=== PATIENT | female | born 1970 | race Caucasian/White ===

== ENCOUNTER 2020-11-12 12:44 | Outpatient (CLI) | payer BC, SELFPAY ==
--- NOTE | ~2020-11-12 | US_ITS ---
EXAMINATION: US venous doppler LE EXAM DATE: 11/12/2020 13:22 INDICATION: Bilateral leg pain. TECHNIQUE: Multiple grayscale, color flow and Doppler images of the lower extremity deep venous syste ms bilaterally were obtained and reviewed. There is no prior study for comparison. FINDINGS: Right side: The right common femoral, femoral and profunda veins demonstrate normal color flow, respi ratory variation, augmentation and compressibility. Compressibility, color flow confirmed within the right popliteal, posterior tibial, peroneal, and greater saphenous veins. Left side: The left common femoral, femoral and profunda veins demonstrate normal color flow, respira tory variation, augmentation and compressibility. Compressibility, color flow confirmed within the l eft popliteal, posterior tibial, peroneal, and greater saphenous veins. IMPRESSION: No lower extremity deep venous thrombosis bilaterally. Reviewed, dictated and finalized at location A.
== END 2020-11-12 12:45 | disposition home or self-care (01) ==
LOC: ANHIMG 12:48
PROVIDERS: PCP Internal Medicine; Visit Provider Physician Assistant
DX: M79.604 Pain in right leg (principal); M79.605 Pain in left leg
CPT/HCPCS: 93970

== ENCOUNTER → 2020-11-22 14:13 | Outpatient (CLI) | payer BC, SELFPAY ==
--- NOTE | ~2020-11-22 | XR_ITS ---
XR hip BI wo pelvis DATE: 11/22/2020 14:44 INDICATION: Bilateral hip pain TECHNIQUE: AP and lateral views of each hip COMPARISON: 06/23/2013 left and right hip FINDINGS: No fracture or dislocation, avascular necrosis or bone destruction of either hip is evident . There is mild left hip osteoarthritis. The pubic symphysis and sacroiliac joints appear intact. IMPRESSION: Mild left hip osteoarthritis Reviewed, dictated and finalized at location A.
--- NOTE | ~2020-11-22 | XR_ITS ---
XR lumbar spine 2-3V DATE: 11/22/2020 14:44 INDICATION: Back pain TECHNIQUE: AP, lateral, coned lateral lumbosacral views COMPARISON: None FINDINGS: Diffuse osteopenia. There is minimal levoscoliosis of the lumbar spine. No fracture or bone destruction or spondylolisthesis. The lumbar pedicles are intact. Mild degenerative disc disease at L3-4 primarily. The sacroiliac joints are intact. IMPRESSION: Osteopenia Minimal levoscoliosis Mild degenerative disc disease primarily at L3-4 Reviewed, dictated and finalized at location A.
== END ==
PROVIDERS: Visit Provider Internal Medicine
DX: M16.12 Unilateral primary osteoarthritis, left hip (principal); M85.88 Other specified disorders of bone density and structure, other site; M51.36 Other intervertebral disc degeneration, lumbar region
CPT/HCPCS: 72100; 73521

== ENCOUNTER 2020-12-03 10:02 | Outpatient (CLI) | payer BC, SELFPAY ==
--- NOTE | ~2020-12-03 | US_ITS ---
EXAMINATION: US abdomen complete EXAM DATE: 12/03/2020 10:58 INDICATION: R10.11 - Right upper quadrant pain . TECHNIQUE: Multiple grayscale and Doppler images of the complete abdomen were obtained (by a technolo gist who performed the scan) and subsequently reviewed. Comparison is made to prior examination from 11/14/2012. FINDINGS: The abdominal aorta is normal in caliber. Visualized portion IVC is patent. The pancreatic head a nd body are normal in appearance. The pancreatic tail is not visualized. The liver has normal echogenicity and contour. There are no focal liver lesions identified. There is no evidence of intrahepatic biliary duct dilation. Portal venous flow was seen in the hepatopedal , normal direction and has normal Doppler waveform. Common bile duct measures 5 mm, which is normal. The gallbladder wall is normal in thickness, with ex pected amount of distention. No sonographic evidence of pericholecystic fluid. There is no cholelit hiases. Technologist performing exam reports patient did not demonstrate sonographic Osorio's sign. Please note that this sign is less reliable in patients who have received pain medication. Right kidney: There is normal contour and echogenicity. It measures 11.4 x 4.5 x 5.1 centimeters. There are no focal renal lesions identified. There is no hydronephrosis. Left kidney: There is normal contour and echogenicity. It measures 11.5 x 5.1 x 6.3 centimeters. T here are no focal renal lesions identified. There is no hydronephrosis. The spleen measures 9.2 centimeters and is morphologically normal. IMPRESSION: 1. Unremarkable complete abdominal ultrasound exam. Reviewed, dictated and finalized at location A.
== END 2020-12-03 10:03 | disposition home or self-care (01) ==
PROVIDERS: PCP Internal Medicine; Visit Provider Internal Medicine
DX: R10.11 Right upper quadrant pain (principal)
CPT/HCPCS: 76700

== ENCOUNTER 2021-03-29 01:02 | Day surgery (SDC) | payer BC, SELFPAY ==
[2021-03-23 16:06] VITALS: BMI 37.2
[2021-03-29 10:44] VITALS: BP 149/85; PULSE 62; RESP 17; TEMP 36.4; O2SAT 100; BMI 36.6
[2021-03-29] MEDS: LACTATED RINGERS 1,000 ML 150 ML IV CONT (10:46)
--- NOTE | 2021-03-29 11:32 | WPDANESEPPF ---
Anes - Initial Pre Proc Eval Procedure: Operation Date: 03/29/21 12:00 Proposed Procedures p Screening Colonoscopy - Nahid Caro MD Date/Time: 03/29/21 11:32 Surgeon: Nahid Caro MD Pre Op Diagnosis: neoplasm screening Patient Data Age: 50 Gender: F Height: 1.52 m Weight: 85.2 kg Last Vital Signs Temp 97.6 F 03/29/21 10:44 Pulse 62 03/29/21 10:44 Resp 17 03/29/21 10:44 BP 149/85 H 03/29/21 10:44 Pulse Ox 100 03/29/21 10:44 Allergies Allergy/AdvReac Type Severity Reaction Status Date / Time Sulfa (Sulfonamide Allergy Mild Unknown Verified 03/29/21 10:43 Antibiotics) Home Medications Medication Instructions Recorded Confirmed Type ergocalciferol (vitamin D2) 1,250 mcg PO WEEKLY 03/23/21 03/29/21 History Patient hx anesthesia problems: none Family hx anesthesia problems: none PMFSH Past Medical History Medical History (Updated 03/29/21 @ 11:29 by Azeem Aguirre MD) Obesity (BMI 30-39.9) Family History Family History Mother Family history of liver disease, Onset Age: 46 Patient's mother is Father Family history of diabetes mellitus in first degree relative, Onset Age: 64 Patient's father is Social History Social History Smoking packs per day: 1 Smoking cigarettes per day: 20.0 Years smoked: 19 Smoking pack-years: 19.00 Smoking status: Former smoker Tobacco type: cigarettes Second hand tobacco smoke exposure: No Smoking end date: 07/16/10 Alcohol intake: current Drinks per week: 6 Substance use: never Living arrangements: with family Spiritual care concerns: No Anes - Eval Final PreProcedure Day of Procedure 03/29/21 11:32 Patient weight: obese Heart: regular rate and rhythm Lungs: clear to auscultation Airway: Mallampati scale class II Neurological: alert and oriented Last oral intake: >/= 8 hours ASA classification: II Emergent: no Anesthetic plan: proceed Anesthesia type and monitoring: general GIVS and standard monitoring Informed Consent: The patient's anesthetic plan and its attendant risks and benefits were discussed with the patient/family/POA. Questions were solicited and answers provided to the satisfaction of the patient/family/POA.
--- NOTE | 2021-03-29 12:38 | PM.HPGS ---
History of Present Illness History of Present Illness Consent: Risks, benefits, and alternatives have been discussed and questions answered. Patient agrees to proceed with procedure. Chief complaint: neoplasm screening Narrative: Janet Chiu is a 50 year old female here for screening colonoscopy, last one 7 years go. Review of Systems Constitutional: Constitutional: Denies headache(s) and Denies weakness Eyes: Eyes: Denies blurry vision ENT: Reports Normal hearing present, Denies headache(s) and Denies neck pain Cardiovascular: Cardiovascular: Denies chest pain and Denies dyspnea Respiratory: Respiratory: Denies dyspnea Gastrointestinal: Gastrointestinal: Reports no additional gastrointestinal complaints Genitourinary: Genitourinary: Denies dysuria Musculoskeletal: Musculoskeletal: Denies neck pain Integumentary/Breasts: Skin/Breast: Denies dry skin Neurologic: Reports Normal hearing present, Denies headache(s) and Denies weakness Psychiatric: Psychiatric: Denies anxiety Endocrine: Endocrine: Denies change in body appearance Hematologic/Lymphatic: Hematologic/Lymphatic: Denies easy bleeding Allergic/Immunologic: Allergic/Immunologic: Denies urticaria PMFSH Past Medical History Medical History (Updated 03/29/21 @ 12:39 by Nahid Caro MD) Colon cancer screening Obesity (BMI 30-39.9) Family History Family History Mother Family history of liver disease, Onset Age: 46 Patient's mother is Father Family history of diabetes mellitus in first degree relative, Onset Age: 64 Patient's father is Social History Social History Smoking packs per day: 1 Smoking cigarettes per day: 20.0 Years smoked: 19 Smoking pack-years: 19.00 Smoking status: Former smoker Tobacco type: cigarettes Second hand tobacco smoke exposure: No Smoking end date: 07/16/10 Alcohol intake: current Drinks per week: 6 Substance use: never Living arrangements: with family Spiritual care concerns: No Meds Home Medications and Allergies Home Medications Medication Instructions Recorded Confirmed Type ergocalciferol (vitamin D2) 1,250 mcg PO WEEKLY 03/23/21 03/29/21 History Allergies Allergy/AdvReac Type Severity Reaction Status Date / Time Sulfa (Sulfonamide Allergy Mild Unknown Verified 03/29/21 10:43 Antibiotics) Vital Signs Vital Signs - 24 hr 03/29/21 10:44 Temperature 97.6 F Pulse Rate 62 Respiratory Rate 17 Blood Pressure 149/85 H Pulse Oximetry 100 Exam Const: General: comfortable and no acute distress HENMT: General nose exam: Normal nares present Eyes: General: appearance normal, both eyes and all related structures Neck: Neck: no JVD Resp: Auscultation: clear to auscultation bilaterally Cardio: Rate: regular rate Rhythm: regular rhythm GI: Inspection: non-distended GI Palp: Yes Soft to palpation Skin: General skin exam: normal color Neuro: General: gait normal Speech: normal speech Extrem: General: normal to inspection Psych: Mental Status: mental status grossly normal Assessment and Plan Assessment and plan (1) Colon cancer screening: Code(s): Z12.11 - Encounter for screening for malignant neoplasm of colon Status: Acute Assessment and Plan: colonoscopy
[2021-03-29 12:58] VITALS: BP 124/71; PULSE 60; RESP 25; O2SAT 100
[2021-03-29 13:08] VITALS: BP 138/86; PULSE 63; RESP 15; O2SAT 100
[2021-03-29 13:18] VITALS: BP 157/88; PULSE 52; RESP 17; O2SAT 100
== END 2021-03-29 13:26 | disposition home or self-care (01) ==
PROVIDERS: PCP Internal Medicine; Visit Provider Internal Medicine Gastroenterology
PROC: 0DJD8ZZ Inspection of Lower Intestinal Tract, Via Natural or Artificial Opening Endoscopic (ICD-10-PCS; CPT 45378; principal; 2021-03-29 12:00)
DX: Z12.11 Encounter for screening for malignant neoplasm of colon (principal); K64.8 Other hemorrhoids; K63.5 Polyp of colon; Z87.891 Personal history of nicotine dependence; E66.9 Obesity, unspecified; Z68.36 Body mass index [BMI] 36.0-36.9, adult
CPT/HCPCS: 45385; 88305; J2704; J7120

== ENCOUNTER 2022-04-10 16:30 | Outpatient (CLI) | payer BC, SELFPAY ==
--- NOTE | ~2022-04-10 | MR_ITS ---
EXAMINATION: MR cervical spine wo con DATE: 04/10/2022 17:13 INDICATION: Neck pain. Cervical radiculopathy. TECHNIQUE: Magnetic resonance imaging (MRI) of the cervical spine was performed without intravenous c ontrast. Sequences included sagittal T2-weighted FSE, sagittal T2-weighted FS FSE, sagittal T1-weight ed FSE, axial MERGE, and axial T2-weighted FSE. COMPARISON: None FINDINGS: Bone alignment is normal. Vertebral body heights are normal. There is moderately decreased disc height at C5-C6. The spinal cord signal intensity is normal. The following disc levels are speci fically discussed: C2-C3: The disc does not extend beyond the endplate margin. There is no uncovertebral joint osteoarth ritis. There is mild left facet joint osteoarthritis. There is no neural foraminal stenosis. There is no central canal stenosis. C3-C4: There is a left central protrusion. There is no uncovertebral joint osteoarthritis. There is s evere right and mild left facet joint osteoarthritis. There is mild right neural foraminal stenosis. There is mild central canal stenosis. C4-C5: There is a left central extrusion. There is no uncovertebral joint osteoarthritis. There is mo derate left facet joint osteoarthritis. There is mild left neural foraminal stenosis. There is mild c entral canal stenosis with ventral indentation of the spinal cord. C5-C6: The disc is bulging. There is severe bilateral uncovertebral joint osteoarthritis. There is mi ld bilateral facet joint osteoarthritis. There is moderate bilateral neural foraminal stenosis. There is mild central canal stenosis with ventral indentation of spinal cord. C6-C7: The disc is bulging. There is no uncovertebral joint osteoarthritis. There is no facet joint o steoarthritis. There is no neural foraminal stenosis. There is no central canal stenosis. C7-T1: The disc does not extend beyond the endplate margin. There is no uncovertebral joint osteoarth ritis. There is moderate and mild left facet joint osteoarthritis. There is mild right neural foramin al stenosis. There is no central canal stenosis. IMPRESSION: 1. Moderate cervical spondylosis. Reviewed, dictated and finalized at location A.
== END 2022-04-10 16:31 ==
PROVIDERS: PCP Internal Medicine; Visit Provider Orthopaedic Surgery
DX: M47.22 Other spondylosis with radiculopathy, cervical region (principal)
CPT/HCPCS: 72141

== ENCOUNTER 2022-04-13 10:00 | Outpatient (CLI) | payer BC, SELFPAY ==
--- NOTE | 2020-04-13 11:00 | NEURO_ITS ---
IMPRESSION: History of right wrist injury. Complaints of pain in posterior aspect of forearm and intermittent numbness in all fingers of right hand. # Mild right carpal tunnel syndrome. 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 # EMG examination was normal. # Clinical correlation recommended. Nerve Conduction Studies Anti Sensory Summary Table Stim Site NR Peak (ms) P-T Amp (?V) Site1 Site2 Delta-P (ms) Dist (cm) Silviano (m/s) Right Median Anti Sensory (2-3nd Digit) Wrist 3.6 74.7 Wrist 2-3nd Digit 3.6 14.0 39 Wrist 4.1 80.2 Wrist 2-3nd Digit 3.6 14.0 39 Right Radial Anti Sensory (Base 1st Digit) Wrist 3.7 20.0 Wrist Base 1st Digit 3.7 0.0 Right Ulnar Anti Sensory (5th Digit) Wrist 3.3 78.3 Wrist 5th Digit 3.3 14.0 42 Motor Summary Table Stim Site NR Onset (ms) O-P Amp (mV) Site1 Site2 Delta-0 (ms) Dist (cm) Silviano (m/s) Right Median Motor (Abd Poll Brev) Wrist 3.8 8.0 Elbow Wrist 2.8 17.0 61 Elbow 6.6 7.0 Right Ulnar Motor (Abd Dig Minimi) Wrist 2.7 4.5 A Elbow Wrist 4.5 25.0 56 A Elbow 7.2 2.9 B Elbow Wrist 3.2 17.0 53 B Elbow 5.9 2.9 F Wave Studies NR F-Lat (ms) L-R F-Lat (ms) Right Median (Mrkrs) (Abd Poll Brev) 25.16 Right Ulnar (Mrkrs) (Abd Dig Min) 26.61 EMG Side Muscle Nerve Root Ins Act Fibs Amp Dur Recrt Comment Right 1stDorInt Ulnar C8-T1 Nml Nml Nml Nml Nml Right Ext Indicis Radial (Post Int) C7-8 Nml Nml Nml Nml Nml Right Ext Digitorum Radial (Post Int) C7-8 Nml Nml Nml Nml Nml Right BrachioRad Radial C5-6 Nml Nml Nml Nml Nml Right PronatorTeres Median C6-7 Nml Nml Nml Nml Nml Right Abd Poll Brev Median C8-T1 Nml Nml Nml Nml Nml MTDD
== END 2022-04-13 10:01 | disposition home or self-care (01) ==
PROVIDERS: PCP Internal Medicine; Visit Provider Internal Medicine
DX: G56.01 Carpal tunnel syndrome, right upper limb (principal); G56.21 Lesion of ulnar nerve, right upper limb
CPT/HCPCS: 95886; 95909

== ENCOUNTER 2024-02-12 14:24 | Outpatient (CLI) | payer BC, SELFPAY ==
--- NOTE | ~2024-02-12 | MR_ITS ---
MRI left knee without contrast Ordering provider: Baldomero Woodward MD History: . M25.562 - Pain in left knee . Comparison: None. FINDINGS: QUADRICEPS, PATELLAR TENDONS AND CRUCIATE LIGAMENTS: Normal in signal and size. No tear. MENISCI: Meniscus tear in the posterior horn of the medial meniscus extending to the undersurface of . COLLATERAL LIGAMENTS: Normal. PATELLA: Minimal lateral subluxation of the patella.. Normal medial patellofemoral ligament are intac t. Tear in the medial and lateral retinacula is noted. JOINT SPACE/ARTICULAR CARTILAGE: The articular cartilage of the knee is normal including the unclaimed property officer ior femoral condyles. Minimal joint effusion with fluid in the suprapatellar bursa. BONES: Bright signal in the distal metaphysis of the femur which may be moderate change. Otherwise, N ormal marrow signal. SUPERFICIAL AND DEEP SOFT TISSUE: popliteal cyst is seen with fluid seen medially which raises the p ossibility of a fracture... No bursitis. No muscle strain. Otherwise, normal. IMPRESSION: Tear in the posterior horn of the medial meniscus. Joint effusion with fluid in the suprapatellar bursa. Highly suggestive tear in the medial and lateral retinacula. Macario's cyst with fluid in the medial soft tissues which raises the possibility of a rupture. Reviewed, dictated and finalized at location A.
== END 2024-02-12 14:25 ==
LOC: GOSHIMG 14:25
PROVIDERS: PCP Internal Medicine; Visit Provider Orthopaedic Surgery
DX: M71.22 Synovial cyst of popliteal space [Baker], left knee (principal); S83.242A Other tear of medial meniscus, current injury, left knee, initial encounter; X58.XXXA Exposure to other specified factors, initial encounter
CPT/HCPCS: 73721

== ENCOUNTER 2024-02-13 16:41 | Outpatient (CLI) | payer BC, SELFPAY ==
--- NOTE | ~2024-02-13 | US_ITS ---
EXAMINATION: US venous doppler [facility] DATE: 02/13/2024 17:12 INDICATION: Left lower limb swelling TECHNIQUE: Grayscale ultrasound images without and with compression and Doppler ultrasound images of the left lower extremity veins were obtained. COMPARISON: None. FINDINGS: The visualized portions of left common femoral vein, profunda (deep) femoral vein, femoral vein, popl iteal vein, peroneal veins, posterior tibial veins and greater saphenous vein outflow are patent. 4.2 x 1.1 x 0.9 cm Macario's cyst at the left popliteal fossa. IMPRESSION: 1. No deep venous thrombosis in the left lower limb. 2. Small Macario's cyst at the left popliteal fossa. Reviewed, dictated and finalized at location A.
== END 2024-02-13 16:42 | disposition home or self-care (01) ==
LOC: ANHIMG 16:42
PROVIDERS: PCP Internal Medicine; Visit Provider Orthopaedic Surgery
DX: R60.0 Localized edema (principal); M71.22 Synovial cyst of popliteal space [Baker], left knee
CPT/HCPCS: 93971

== ENCOUNTER 2024-03-31 02:26 | Day surgery (SDC) | payer BC, SELFPAY ==
[2024-03-24 09:58] VITALS: BMI 32.6
--- NOTE | 2024-03-24 09:59 | PC.NURSE ---
Report to the Outpatient Waiting Room, entrance under the green pavilion located off [facility], at time _0600_ on date _[id number]_. Planned Procedure Time: _0730_.? Time changes happen often and if your time is changed the preop area will call you the afternoon before. - You and your visitor will be asked to self-screen and do not enter if you have any COVID symptoms. Please call surgeon if you need to reschedule. - A mask is optional within the hospital at this time. Patients may have clear liquids (water, carbonated beverages, clear teas, apple juice) until 3 hours prior to surgery with a maximum of 20 ounces. - No food from midnight until time of surgery and no smoking Take only the following medications with a SIP of water on the morning of surgery: ____Prednisone DO NOT STOP ANY OF YOUR OTHER PRESCRIPTION MEDICATIONS PRIOR TO SURGERY EXCEPT THE FOLLOWING Medications to discontinue per physician ____None Date to take last dose Please no make-up, nail spanish, hairspray, perfume, deodorant, or body powder the day of surgery.? No jewelry (including any body piercings) or valuables the day of surgery, leave them at home.? Please take a shower or bath the night before, or the morning of, surgery with an antibacterial soap.? Children are encouraged to wear pajamas. - Jewelry must be removed prior to entering the operating room.? Rings and piercings that are not removed may be cut off. - The hospital will not accept responsibility for valuables.? - Please leave all valuables, including medications, at home the day of surgery. If you are going home after surgery, a licensed funeral driver must drive you home.? - NO public transportation without another adult if you receive anesthesia. - We recommend that an adult stay with you for 24 hours following discharge. - We also recommend that you do not drive, make important decision, drink alcoholic beverages, or take any drugs that were not prescribed by your health care provider for at least 24 hours after your discharge time. Follow any additional instructions given to you from your surgeon. Telephone instructions given to __Kelly__and asked if any additional questions and then verbalized understanding. Patient advised to call surgeon office or pre surgery nurse liaison [phone] if any additional questions.
--- NOTE | 2024-03-28 11:11 | PM.IMHP ---
H&P: HPI History of Present Illness Date/Time: 03/28/24 11:11 Chief Complaint: Medial meniscus tear left knee Narrative: 53-year-old female who presents today for arthroscopy of her left knee with partial medial meniscectomy proceed as indicated. Symptoms started in her knee in November following a 5K walk. She does not recall any injury when she did it. However since that time she had been having pain in the knee. She has been getting some catching type symptoms as well. Patient was initially seen in January this year for this. MRI scan was ordered of the knee. It did demonstrate a complex tear of the posterior horn of the medial meniscus with a flap component. Patient has no arthritic changes in the knee notable. There is no bony edema seen on the MRI scan. She continues to have symptoms in the knee. Arthroscopy was offered to her and patient would like to proceed. Review of Systems Review of Systems: All systems reviewed & are unremarkable except as noted in HPI and below PMFSH Past Medical History Medical History Cervical vertebral fusion Colon cancer screening Obesity (BMI 30-39.9) Torn meniscus Surgical History Surgical History History of bunionectomy Family History Family History Mother Family history of liver disease, Onset Age: 46 Patient's mother is Father Family history of diabetes mellitus in first degree relative, Onset Age: 64 Patient's father is Sibling , pulmonary edema No problems noted. Sibling No problems noted. Social History Social History Smoking packs per day: 1 Smoking cigarettes per day: 20.0 Years smoked: 15 Smoking pack-years: 15.00 Smoking status: Former smoker Tobacco type: cigarettes Second hand tobacco smoke exposure: No Smoking end date: 03/24/04 Alcohol intake: current Drinks per week: 20 Substance use: never Substance use type: does not use Do You Feel Safe in your Home?: Yes Lack of Transportation: No Lack of Food: Never True Current Housing: I Have Housing Concerned About Future Housing: No Difficulty Paying Gas/Electric Bills: No Difficulty Paying for Meds: YES Currently Unemployed: No Education: High School Diploma/GED Difficulty w/ Childcare or Family Care: No Living arrangements: with family Occupation/Education: occupation 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[employer] Gender identity (if verbalized by the patient): Female Spiritual care concerns: No Meds Home Medications and Allergies Home Medications Medication Instructions Recorded Confirmed Type ergocalciferol (vitamin D2) 1,250 1,250 mcg PO WEEKLY 03/23/21 03/24/24 History mcg (50,000 unit) capsule risankizumab-rzaa 150 mg/mL 150 mg subcut ONCE 09/05/23 03/24/24 History subcutaneous pen injector (Skyrizi) naltrexone 50 mg tablet 50 mg PO DAILY #30 tabs 01/10/24 03/24/24 Rx prednisone 5 mg tablet 5 mg PO DAILY #60 tabs 02/19/24 03/24/24 Rx Allergies Allergy/AdvReac Type Severity Reaction Status Date / Time Sulfa (Sulfonamide Allergy Mild Unknown Verified 03/24/24 09:49 Antibiotics) Vital Signs 53-year-old female she is 5 ft 2 and 167 lb. She has no definite effusion in the left knee. Range of motion is from 0-130 degrees. Mild tenderness over the medial joint line. He has Jayme's testing causes her pain deep within the knee. No popping noted. Moderate lateral joint line tenderness and moderate pain with patellofemoral grind. There is no edema in the left lower extremity. 2+ dorsalis pedis pulse. Hip range of motion is full without discomfort. Exam Resp: Auscultation: clear to auscultation chon
[2024-03-31] VITALS (11 sets, daily range): BP systolic 123–158; BP diastolic 67–97; PULSE 46–62; RESP 12–18; TEMP 36.1–36.4; O2SAT 98–100
[2024-03-31] MEDS: LACTATED RINGERS 1,000 ML 30 ML IV CONT ×2 (07:00→09:00)
[2024-03-31] MEDS: ACETAMINOPHEN 500 MG TABLET 1000 MG PO (07:00)
[2024-03-31] MEDS: KETOROLAC 15 MG/ML VIAL (*BKC) IV PUSH ×2 (07:00→09:09)
--- NOTE | 2024-03-31 07:01 | WPDANESEPPF ---
Anes - Initial Pre Proc Eval Procedure: Operation Date: 03/31/24 07:30 Proposed Procedures p Arthroscopic Partial Medial Meniscectomy Left Knee, Proceed As Indicated - Baldomero Woodward MD Date/Time: 03/31/24 07:01 Surgeon: Baldomero Woodward MD Pre Op Diagnosis: medial meniscus tear left knee Patient Data Age: 53 Gender: F Height: 1.52 m Weight: 75.9 kg Allergies Allergy/AdvReac Type Severity Reaction Status Date / Time Sulfa (Sulfonamide Allergy Mild Unknown Verified 03/24/24 09:49 Antibiotics) Home Medications Medication Instructions Recorded Confirmed Type ergocalciferol (vitamin D2) 1,250 1,250 mcg PO WEEKLY 03/23/21 03/24/24 History mcg (50,000 unit) capsule risankizumab-rzaa 150 mg/mL 150 mg subcut ONCE 09/05/23 03/24/24 History subcutaneous pen injector (Skyrizi) naltrexone 50 mg tablet 50 mg PO DAILY #30 tabs 01/10/24 03/24/24 Rx prednisone 5 mg tablet 5 mg PO DAILY #60 tabs 02/19/24 03/24/24 Rx Patient hx anesthesia problems: none Family hx anesthesia problems: none Results Review: All pre-operative results and documents have been reviewed as part of the pre-operative evaluation. [facility] Past Medical History Medical History Cervical vertebral fusion Colon cancer screening Obesity (BMI 30-39.9) Torn meniscus Surgical History Surgical History History of bunionectomy Family History Family History Mother Family history of liver disease, Onset Age: 46 Patient's mother is Father Family history of diabetes mellitus in first degree relative, Onset Age: 64 Patient's father is Sibling , pulmonary edema No problems noted. Sibling No problems noted. Social History Social History Smoking packs per day: 1 Smoking cigarettes per day: 20.0 Years smoked: 15 Smoking pack-years: 15.00 Smoking status: Former smoker Tobacco type: cigarettes Second hand tobacco smoke exposure: No Smoking end date: 03/24/04 Alcohol intake: current Drinks per week: 20 Substance use: never Substance use type: does not use Do You Feel Safe in your Home?: Yes Lack of Transportation: No Lack of Food: Never True Current Housing: I Have Housing Concerned About Future Housing: No Difficulty Paying Gas/Electric Bills: No Difficulty Paying for Meds: YES Currently Unemployed: No Education: High School Diploma/GED Difficulty w/ Childcare or Family Care: No Living arrangements: with family Occupation/Education: occupation 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 Ex smoker, quit approx 2013. ETOH use/abuse, 3 beers/day and 3 shots/day. Informed Consent: The patient's anesthetic plan and its attendant risks and benefits were discussed with the patient/family/POA. Questions were solicited and answers provided to the satisfaction of the patient/family/POA.
--- NOTE | 2024-03-31 07:16 | WPDHPUPDATE1 ---
History and Physical Update Update Date/Time: 03/31/24 07:16 History and Physical has been reviewed, including an updated exam of the patient. There are NO changes in the patient's condition. Risks, benefits, and alternatives have been discussed and questions answered. Patient agrees to proceed with procedure.
[2024-03-31] MEDS: ceFAZolin 2 GM/D5W 50 ML 2 GM/50 ML BAG IVPB (07:32)
[2024-03-31] MEDS: LIDO 1%/EPINEPHRINE 1:100,000 50 ML VIAL 10 ML INFILTRATE (07:57)
[2024-03-31] MEDS: fentaNYL CITRATE INJ (*CRX) 100 MCG/2 ML VIAL 25 MCG IV PUSH ×8 (09:13→09:54)
--- NOTE | 2024-03-31 09:41 | W.PM.PROC2 ---
Procedure Note - Detailed Date of Procedure 03/31/24 Pre-op Diagnosis medial meniscus tear left knee Post-op Diagnosis Same (Also with loose body possibly fragment of meniscus in the suprapatellar pouch) Procedure Performed Arthroscopic partial medial meniscectomy left knee, removal of loose body in suprapatellar pouch Surgeon Baldomero Woodward MD Anesthesia General Description of Procedure Patient was brought to the operating room and general anesthesia was administered the left knee prepped draped usual fashion. Standard arthroscopic portals were placed. Local anesthetic with 1% lidocaine with epinephrine 3 cc injected into the soft tissues in 7 into the joint prior to making the portals. She received 2 g of Ancef preop. The medial compartment was evaluated and showed complex tearing of posterior horn of the medial meniscus. There was a vertically oriented stump of medial meniscus based at the root posteriorly. With the nerve hook we could lay it down horizontally is normal position. There did seem to be deficiency of tissue. The stump was debrided back to the root using alternating punch and motorized shaver. The superior leaflet that remained of the posterior horn was trimmed and we trimmed over to the midbody which was transitioned. The articular surface of the medial compartment were in good condition showing minimal chondromalacia of the medial femoral condyle next to the intercondylar notch. ACL and PCL looked normal. He has scope was placed in lateral compartment which looked normal. The arthroscope was placed in the ervin medial portal and with shaver placed in the anterolateral portal the midbody was transitioned to the anterior horn to create a smooth resection. We then placed the arthroscope into the suprapatellar pouch and discovered a long flat strip of white somewhat softer tissue that looked like a layer of meniscus I suspect this may have been a piece of meniscus the under surface of the posterior horn that seemed to be missing. It seemed to be about an inch long and about 10 mm wide about 2 or 3 mm thick. There was a suprapatellar foramen and we introduced the shaver through the anteromedial portal and with suction the fragment was brought out of the foramen and we used the shaver to remove it. This removed about 2/3 of it than the shaver became plugged and we could not seem to unplug it. It lost its suction ability so we opened up another shaver this time a 4.0 shaver and it easily removed the remainder of this fragment. We then inspected the patellofemoral joint thoroughly to see if there was a donor site for this who has fragment on the articular surfaces. I did not see 1. The trochlear cartilage looked perfect. There was diffuse fibrillation in the central and medial facet that looked superficial and minor. Cartilage on the lateral facet normal. We then did a global view of the knee starting with the medial gutter suprapatellar pouch above the suprapatellar pouch foramen the lateral gutter lateral compartment her on the ACL medial to the PCL and medial compartment and saw no other loose pieces. We did put the tourniquet up while we were using the shaver and the suprapatellar pouch. The tourniquet was released and hemostasis achieved with a few minutes of observation and the portals were closed with 5 0 nylon suture a soft bulky dressing applied the patient transferred to postop recovery room in stable condition. DIPESH Billing Surgery - Charge Forward: Surgery Billing (Arthroscopic partial medial meniscectomy last left knee and loose body removal from suprapatellar pouch.)
[2024-03-31] MEDS: oxyCODONE HCL (*CRX) 5 MG TAB IR PO (09:43)
[2024-03-31] MEDS: diazePAM INJ (*CRX) 10 MG/2 ML SYRINGE 2 MG IV PUSH ×2 (10:02→10:13)
== END 2024-03-31 11:53 | disposition home or self-care (01) ==
PROVIDERS: PCP Internal Medicine; Visit Provider Orthopaedic Surgery
PROC: (CPT 29870; principal; 2024-03-31 07:30)
DX: S83.232A Complex tear of medial meniscus, current injury, left knee, initial encounter (principal); M23.42 Loose body in knee, left knee; E66.9 Obesity, unspecified; Z68.33 Body mass index [BMI] 33.0-33.9, adult; Z79.52 Long term (current) use of systemic steroids; Z79.85 Long-term (current) use of injectable non-insulin antidiabetic drugs; Z98.890 Other specified postprocedural states; Z98.1 Arthrodesis status; Z87.891 Personal history of nicotine dependence; X58.XXXA Exposure to other specified factors, initial encounter
CPT/HCPCS: 29881; A9270; J0690; J1100; J1885; J2250; J2405; J2704; J3010; J3360; J7120

== ENCOUNTER 2024-09-29 13:42 | Emergency (ER) | payer BC, SELFPAY ==
--- NOTE | ~2024-09-29 | XR_ITS ---
HISTORY: L hip pain s/p fall COMPARISON: 11/22/2020. TECHNIQUE: 2 views of the left hip along with an AP view of the pelvis FINDINGS: No acute fracture or dislocation is identified. Superior lateral sclerosis of the femoral acetabular joint space bilaterally consistent with osteoart hritis. Mineralization is age-appropriate IMPRESSION: Trace degenerative disease without acute fracture or dislocation Reviewed, dictated and finalized at location A.
--- NOTE | ~2024-09-29 | US_ITS ---
LEFT LOWER EXTREMITY VENOUS ULTRASOUND Ordering provider: Josephine Lassiter APRN History: . L leg pain, swelling . Comparison: None. FINDINGS: --COMMON FEMORAL: Patent and free of thrombus. Normal compressibility, phasic flow and augmentation. --PROXIMAL SUPERFICIAL FEMORAL: Patent and free of thrombus. Normal compressibility, phasic flow and augmentation. --DISTAL SUPERFICIAL FEMORAL: Patent and free of thrombus. Normal compressibility, phasic flow and au gmentation. --POPLITEAL: Patent and free of thrombus. Normal compressibility, phasic flow and augmentation. --POSTERIOR TIBIAL: Patent and free of thrombus. Normal compressibility, phasic flow and augmentation . IMPRESSION: Negative left lower extremity venous US. No deep vein thrombosis. Reviewed, dictated and finalized at location A.
--- NOTE | ~2024-09-29 | XR_ITS ---
XR knee LT 3V 09/29/2024 15:19 Indication: Left knee pain Procedure: 3 views left knee Comparison: 01/28/2024 Findings: Moderate joint effusion. Mild osteoarthritis of the left knee. No fracture or traumatic mal alignment. No foreign bodies. Impression: 1: Mild osteoarthritis of the left knee. 2: Moderate joint effusion. Reviewed, dictated and finalized at location B. Impression: 1: Mild osteoarthritis of the left knee. 2: Moderate joint effusion.
[2024-09-29 14:21] VITALS: BP 140/65; PULSE 73; RESP 17; TEMP 36.4; O2SAT 99
--- NOTE | 2024-09-29 14:39 | ED_ITS ---
HPI - Extremity Injury (Lower) General Chief Complaint: Extremity Injury, Lower <Josephine Lassiter APRN - Last Filed: 09/29/24 14:45> Stated Complaint: L knee swelling after a fall last week <Josephine Lassiter APRN - Last Fi led: 09/29/24 14:45> Time Seen by Provider: 09/29/24 14:30 <Josephine Lassiter APRN - Last Filed: 09/29/24 14:45> Focused HPI: Patient is a 53-year-old female who presents to the ER with complaints of left knee and left hip pain following a fall approximately 1 week ago. She reports the pain was worse in her L hip, but her left knee recently became more painful and swollen. Patient endorses a history of left knee surgery performed by Dr. Woodward. She denies any shortness of breath, recent fevers, or chest pain. GENERAL: Well-appearing, well-nourished, and in no acute distress. HEAD: Normocephalic, atraumatic. CHEST: Clear to auscultation. ?No respiratory distress. HEART: Regular rate and rhythm.? NEURO: ?Alert and oriented x3. Patient screened in triage and initial orders placed.? ?Additional care and disposition to be based upon?diagnostic testing and treatment. <Josephine Lassiter APRN - Last Filed: 09/29/24 14:45> History of Present Illness HPI Narrative: I agree with the above HPI <Cliff Segura MD - Last Filed: 09/29/24 22:29> Related Data Home Medications: Home Medications ?Medication ?Instructions ?Recorded ?Confirmed ?Last Taken ?Type ergocalciferol (vitamin D2) 1,250 1,250 mcg PO WEEKLY 03/23/21 04/15/24 Unknown History mcg (50,000 unit) capsule risankizumab-rzaa 150 mg/mL 150 mg subcut ONCE 09/05/23 04/15/24 Unknown History subcutaneous pen injector (Skyrizi) <Josephine Lassiter APRN - Last Filed: 09/29/24 14:45> Allergies/Adverse Reactions: Allergies Allergy/AdvReac Type Severity Reaction Status Date / Time Sulfa (Sulfonamide Allergy Mild Unknown Verified 04/15/24 07:35 Antibiotics) <Josephine Lassiter APRN - Last Filed: 09/29/24 14:45> Review of Systems Review of Systems: All systems reviewed & are unremarkable except as noted in HPI and below <Cliff Segura MD - Last Filed: 09/29/24 22:29> [facility] Past Medical History Medical History: Medical History (Updated 09/29/24 @ 18:15 by Cliff Segura MD) Cervical vertebral fusion Torn meniscus Colon cancer screening Obesity (BMI 30-39.9) <Josephine Lassiter APRN - Last Filed: 09/29/24 14:45> Surgical History Surgical History: Surgical History (Updated 04/14/24 @ 14:03 by SHEEBA Early) H/O arthroscopic knee surgery History of bunionectomy <Josephine Lassiter APRN - Last Filed: 09/29/24 14:45> Family History Family History: Family History Mother Family history of liver disease, Onset Age: 46 Patient's mother is Father Family history of diabetes mellitus in first degree relative, Onset Age: 64 Patient's father is Sibling , pulmonary edema No problems noted. Sibling No problems noted. <Josephine Lassiter APRN - Last Filed: 09/29/24 14:45> Social History Social History: Social History Smoking packs per day: 1 Smoking cigarettes per day: 20.0 Years smoked: 15 Smoking pack-years: 15.00 Smoking status: Former smoker Tobacco type: cigarettes Second hand tobacco smoke exposure: No Smoking end date: 03/24/04 Alcohol intake: current Drinks per week: 20 Substance use: never Substance use type: does not use Do You Feel Safe in your Home?: Yes Lack of Transportation: No Lack of Food: Never True Current Housing: I Have Housing Concerned About Future Housing: No Difficulty Paying Gas/Electric Bills: No Difficulty Paying for Meds: YES Currently Unemployed: No Education: High School Diploma/GED Difficulty w/ Childcare or Family Care: No Living arrangements: with family Occupation/Education: occupation 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 HEAD: normocephalic, atraumatic. EYES: PERRLA/EOMI, conjunctivae clear. NOSE: Normal no drainage EARS:TMS clear with good light reflex. THROAT: Pharynx clear, no exudate. NECK: Supple. No adenopathy, no masses. RESPIRATORY: Airway patent, respirations nonlabored. Clear to auscultation bilaterally, no rales, rhonchi, wheezing. CARDIOVASCULAR: Regular rate and rhythm without murmurs rubs or gallops. ABDOMINAL: Soft, nontender, nondistended, normal bowel sounds MUSCULOSKELETAL: Left lateral hip and left lateral thigh tenderness to palpation, mild left knee effusion with no ecchymosis NEURO: Alert. Cranial nerves II through XII intact. Good gait. Good coordination SKIN: Warm, dry. Normal Color <Cliff Segura MD - Last Filed: 09/29/24 22:29> Course Vital Signs Vital signs: Vital Signs Temperature 97.6 F 09/29/24 14:21 Pulse Rate 73 09/29/24 14:21 Respiratory Rate 17 09/29/24 14:21 Blood Pressure 140/65 09/29/24 14:21 Pulse Oximetry 99 09/29/24 14:21 Oxygen Delivery Room Air 09/29/24 14:21 Temperature 98.4 F 09/29/24 18:24 Pulse Rate 68 09/29/24 18:24 Respiratory Rate 18 09/29/24 18:24 Blood Pressure 130/76 09/29/24 18:24 Pulse Oximetry 100 09/29/24 18:24 Oxygen Delivery Room Air 09/29/24 14:21 <Josephine Lassiter APRN - Last Filed: 09/29/24 14:45> Vital Signs Temperature 97.6 F 09/29/24 14:21 Pulse Rate 73 09/29/24 14:21 Respiratory Rate 17 09/29/24 14:21 Blood Pressure 140/65 09/29/24 14:21 Pulse Oximetry 99 09/29/24 14:21 Oxygen Delivery Room Air 09/29/24 14:21 Temperature 98.4 F 09/29/24 18:24 Pulse Rate 68 09/29/24 18:24 Respiratory Rate 18 09/29/24 18:24 Blood Pressure 130/76 09/29/24 18:24 Pulse Oximetry 100 09/29/24 18:24 Oxygen Delivery Room Air 09/29/24 14:21 <Cliff Segura MD - Last Filed: 09/29/24 22:29> MDM - Extremity Injury (Lower) MDM Narrative Medical decision making narrative: 53-year-old presented emergency department for evaluation for left hip left knee pain. Patient has negative x-rays of knee and hip and ultrasound was negative. Suspect a left hip contusion versus as left knee injury. Patient was started on omeprazole to help prevent gastritis and started scheduled naproxen and was provided Flexeril for muscle spasm. Number discharge and close follow- up with Peds. <Cliff Segura MD - Last Filed: 09/29/24 22:29> Differential Diagnosis Differential diagnosis: Likely other (Hip fracture, hip contusion, hip dislocation, knee contusion, knee fracture, DVT) <Cliff Segura MD - Last Filed: 09/29/24 22:29> Lab Data Labs: Impressions Venous Doppler Study 09/29/24 15:18 IMPRESSION: Negative left lower extremity venous US. No deep vein thrombosis. Knee X-Ray 09/29/24 15:22 Impression: 1: Mild osteoarthritis of the left knee. 2: Moderate joint effusion. Hip/Pelvis X-Ray 09/29/24 15:30 IMPRESSION: Trace degenerative disease without acute fracture or dislocation <Cliff Segura MD - Last Filed: 09/29/24 22:29> Discharge Plan Discharge Clinical Impression: Contusion of hip, Effusion of knee <Josephine Lassiter APRN - Last Filed: 09/29/24 14:45> Patient Disposition: Home, Self-Care <Josephine Lassiter APRN - Last Filed: 09/29/24 14:45> Condition: Stable <Josephine Lassiter APRN - Last Filed: 09/29/24 14:45> Instructions: Antibiotic Form, Swollen Knee Joint (ED), Hip Contusion (ED) <Josephine Lassiter APRN - Last Filed: 09/29/24 14:45> Additional Instructions: Omeprazole as directed to help with potential gastritis. Naproxen as directed for the next 3-5 days. Flexeril as needed for muscle spasms. Have close follow-up with Orthopedics. If you have any worsening symptoms then please call or return to the emergency department. <Josephine Lassiter APRN - Last Filed: 09/29/24 14:45> Patient Language: Spanish <Josephine Lassiter APRN - Last Filed: 09/29/24 14:45> Prescriptions: New cyclobenzaprine 10 mg tablet 10 mg PO BID PRN (Reason: muscle spasm) Qty: 14 0RF naproxen [Naprosyn] 500 mg tablet 500 mg PO BID 5 Days Qty: 10 0RF omeprazole 20 mg capsule,delayed release(DR/EC) 20 mg PO DAILY 14 Days Qty: 14 0RF No Action Skyrizi 150 mg/mL pen injector 150 mg subcut ONCE Rx Instructions: [id number]. ergocalciferol (vitamin D2) 1,250 mcg (50,000 unit) capsule 1,250 mcg PO WEEKLY Rx Instructions: takes on Tuesdays acetaminophen 500 mg capsule 1,000 mg PO Q6H Qty: 100 0RF Prilosec 10 mg susp,delayed release for recon 10 mg PO BID Qty: 30 0RF naltrexone 50 mg tablet 50 mg PO DAILY Qty: 30 3RF <Josephine Lassiter APRN - Last Filed: 09/29/24 14:45> Follow-up/Referrals: Napoleon Gutierrez DO [Primary Care Provider] - <Josephine Lassiter APRN - Last Filed: 09/29/24 14:45>
--- OUTSIDE RECORDS SUMMARY | 2024-09-29 16:14 | XMS_ITS | Data Portability ---
Author Organization [facility], Radiology_ Address [address] [place] [address] Care Team Providers Care Jig Bore Tool Maker Name Role Phone MICHELLE ROSS Primary Care Provider Assessment Encounter Date Assessment Date Assessment LastModified by Organization Details LastModified Time 11/17/2017 11/17/2017 UA: negative. Uring culture is pending results. Extensive discussion with patient of differential diagnosis. We both agreed to treat as musculoskeletal pain at this time and she will return to Urgent Care if her back pain persists Not available 11/17/2017 12:59:06 Plan of Treatment Reminders Order Date Submit Date Provider Last Modified By Organization Details Last Modified Time Details Appointments None recorded. Lab urinalysi s, dipstick 2017 018 [email or web address] [facility]__main Office, [address], [place], [address], 8 10:45:03 culture, urine + sensitivi ty 2017 018 RYAN [facility]__main Office, [address], [address], [place], [address], 8 09:18:18 Referral None recorded. Procedures None recorded. Surgeries None recorded. Imaging None recorded. Medication Orders cyclobenz aprine 10 mg tablet 2017 018 INTERFACE [id number], [address], [place], [address], 8 12:27:26 [place] 5 mg-325 mg tablet 2017 018 vcradic Not available 8 12:53:25 naproxen 500 mg tablet 2017 018 INTERFACE [id number], [address] [place], [address], 8 12:27:26 Patient TargetsNo targets recorded. Patient Instructions Encounter Date Encounter Id Patient Instructions Last Modified By Organization Details Last Modified Time 11/17/2017 [id number] Range of motion back stretching exercise. No heavy lifting. Follow up with your PCP or return to Urgent Care if back pain persists. NO DRIVING or WORKING while taking NORCO or CYCLOBENZAPRINE due to medication would cause drowsiness Not available 11/17/2017 12:29:49 Reason for Referral None Reported. Results Created Date Observation Date Name Description Value Unit Range Abnormal Flag Note LastModifiedBy Organization Detail LastModifiedTime 11/18/19 18 11/18/2017 cultu re, urine C urine SEE BELOW URINE CULTU RE FINAL REPOR T (# [id number]) Speci men Urine CUL TURE* * No growt h (<1,0 00 cfu/m L) BMI -[facility] [address] [facility], [facility] [address] Labor atory Direc tor: Jace Merlos M.D. CLIA #[id number] Medic al Labor atory Direc tor: JACE MERLOS M.D. CLIA# CLIA- [id number] Not Available [facility] [address] [place], [address], 11/19/2017 00:19:12 Result Notes None recorded. Problems Name Problem SNOMED Code Status Onset Date Resolution Date Notes Provider Name and Address Organization Details Recorded Time Varicella 96049662 Completed 201711/17/2017 Hemalatha armenta [facility] 8 11:27:09 Heartburn 61319530 Active 2017 Hemalatha armenta [facility] 8 11:27:15 Arthritis 8057532 Active 2017 Hemalatha armenta [facility] 8 11:27:19 Backache 703477944 Active 2017 Hemalatha armenta [facility] 8 11:27:25 Hemorrhoid s 77024253 Active 2017 Hemalatha armenta [facility] 8 11:27:38 Problem Notes None recorded. Procedures Surgical History Date Name Laterality Status Provider Name and Address Organization Details Recorded Time Knee Surgery completed Hemalatha Fournier [facility] 11/17/2017 11:29:21 Imaging Results None recorded. Procedure Notes None recorded. Medical Equipment None Reported. Allergies Allergen ID Allergen Name Allergen Category Reaction Reaction Severity Criticality Documentation Date Start Date Code Code System Note Provider Name and Address Organization Details Recorded Time 6619 Substance with sulfonami de structure and antibacte rial mechanism of action (substanc e) medicatio n Not available Not available Not available 11/17/2017 [id number] SNOMED Hemalatha armenta [facility] 8 11:26:48 Medications Name Sig Start Date Stop Date Status Note LastModified by Organization Details LastModified Time cyclobenzaprine 10 mg tablet Take 1 tablet 3 times a day by oral route as needed. 2017 active Not Available Not Available Not Avai lable [place] 5 mg-325 mg tablet Take 1 tablet every 6 hours by oral route as needed. 2017 active Not Available Not Available Not Avai lable naproxen 500 mg tablet Take 1 tablet twice a day by oral route as needed. 2017 active Not Available Not Available Not Avai lable Vitals Date Recorded Heart rate Respiratory rate Body temperature Body weight Oxygen saturation Oxygen saturation in Arterial blood by Pulse oximetry Systolic blood pressure Diastolic blood pressure Provider Name and Address Organization Details Last Updated DateTime 8 67 /min 18 /min 97 [degF] 11297.7 9 g 99 % 99 % 126 mm[Hg] 84 mm[Hg] Hemalatha Amaya [facility] 8 11:26:33 Social History Question Answer Notes LastModified by Organizat ion Details LastModified Time Tobacco Smoking Status Former Smoker MELIDA Shultz [facility] 11/17/2017 11:28:57 What Is Your Level Of Alcohol Consumption? Moderate Information not available 11/17/2017 Which Illicit Or Recreational Drugs Have You Used? None Information not available 11/17/2017 What Was The Date Of Your Most Recent Tobacco Screening? 11/17/2017 Information not available 02/05/2019 Sex: Unknown Functional Status None recorded. Mental Status None recorded. Family History Relationship Description Onset Age of this Age Resolved Age Notes LastModified by Organization Details LastModified Time Father Diabetes mellitus Not available 2017 11:28:05 Father Hypertensive disorder Not available 2017 11:28:38 Maternal Grandmother Diabetes mellitus Not available 2017 11:28:05 Paternal Aunt Malignant tumor of breast Not available 2017 11:28:24 Medical History Condition Response Coronary Artery Disease N Other N Gout N Kidney Stones N Blood Diseases N Hyperthyroidism N Blood Transfusion N COPD N Depression N Anxiety Disorder N Muscle, Joint, or Bone Problems N Obesity N Vision or Eye Problems N Arthritis N Infertility N Polyps N Mental Disorder N Cancer N Stroke N Varicosities N Fibromyalgia N Headaches N Kidney Disease N Heart Problems N Ear or Hearing Problems N Hospitalizations N Skin Problems N Eating Disorder N MRSA exposure N Constipation N Tuberculosis N AIDS/HIV N Asthma N Hepatitis N Pulmonary Embolism N Chronic Ear Infections N Chicken Pox N Autism Spectrum Disorder (ASD) N Thrombophilias N Breast Cancer N Hypothyroidism N Lung Disease N Defects or Inherited Disease N Developmental or Behavioral Disorders N Breast Problem N Difficulty Swallowing N Anesthesia Complications N Meniere's disease N Endometriosis N Bladder or Kidney Problems N High Cholesterol N Liver Disease N Allergies/Hayfever N Thyroid Problems N GI Problems N ADD/ADHD N Anemia N Mental Illness N Ovarian Cancer N Diabetes N Bedwetting N Seizures/Epilepsy N Congestive Heart Failure (CHF) N Eczema N Diverticulitis N Abuse/Domestic Violence N Reflux/GERD N Heart Disease N Pre-Eclampsia N Hypertension N Osteoporosis N Gynecological HistoryNo gynecological history recorded. Obstetrics History GPAL:G 0 P 0 0 0 0 Past Encounters Encounter ID Performer Location Encounter Start Date Encounter Closed Date Diagnosis/Indication Diagnosis SNOMED-CT Code Diagnosis ICD10 Code Diagnosis Note [id number] [facility] [address], [address] [place] [address] 11/17/2017 11:13:59 12/17/2017 20:37:01 Acute low back pain 497174433 M54.5 Health Concerns Section Related Observation LastModified by Organization Detai ls LastModified Time None Recorded Concern Status LastModified by Organization Details LastModified Time None Recorded Advance Directives Directive None Recorded Payers Encounter Date Sequence Insurance Name Policy Number Policy Menard Covered Member ID Menard Member ID Guarantor Name 11/17/2017 1 [place] [id number] Janet Chiu [id number] Janet Chiu Notes Date Note Type Note Provider Name and Address Organization Details Recorded Time 11/17/2017 text/html Pt presents to Urgent care for c/o lower back pain that radiates to sides and lower abdomen. Pt states pain started on Sunday. Reports hard to sit up from lying position. Pt reports pain feels like pain she had 20 plus years ago with kidney infection. No urinary symptoms noted. Denies buring or frequency. note: x 4 days woke up with lower back pain across lower back. Past 2 days she noticed of pain radiating to bilateral lower abdomen. No injury related. No heavy lifting except [place] [employer] [place]. No pain radiating to legs. No bowel or bladder incontinence. No saddle anesthesia. No fever. No dysuria, urinary frequency or urgency. No chest pain or shortness of breath [facility]AN[facility] POOL [id number], [place], [address], [facility] 11/17/2017 13:03:38 OBGyn Episode No OBEpisode recorded.
--- OUTSIDE RECORDS SUMMARY | 2024-09-29 16:14 | XMS_ITS | Encounter Summary ---
Author Organization [facility] Address [address] [place] [address] Care Team Providers Care Animal Warden Name Role Phone Valencia Roberto Carlos Carvalho DO Primary Care Provider [phone] Encounter Details Date Type Department Care Team (Late st Contact Info) Description 09/19/2023 Telephone [facility] [address] [place] [address] Inna Trammell MD [facility] [place] [address] Social History Tobacco Use Types Packs/Day Years Used Date Smoking Tobacco: Never Smokeless Tobacco: Never Alcohol Use Standard Drinks/Week Comments Yes 0 (1 standard drink = 0.6 oz pur e alcohol) 1/ day Sex and Gender Information Value Date Recorded Sex Assigned at Not on file Gender Identity Not on file Sexual Orientation Not on file documented as of this encounter Miscellaneous Notes * Telephone Encounter - Mariah Suarez - 09/19/2023 9:39 AM CST Patient stated she is returning a call to speak with Candy. Please advise ER STYLIST documented in this encounter Plan of Treatment Upcoming Encounters Date Type Department Care Team (Late st Contact Info) Description 11/18/2024 1:30 PM CDT Office Visit [facility] [address] [facility] [place] [address] Inna Trammell MD [facility] [place] [address] documented as of this encounter Visit Diagnoses Not on filedocumented in this encounter Care Teams Animal Warden Relationship Specialty Start Date End Date Roberto Carlos [place] DO [address] [facility] [address] [place] [address] PCP - General Internal Medicine 06/01/16 documented as of this encounter
--- OUTSIDE RECORDS SUMMARY | 2024-09-29 16:15 | XMS_ITS | Clinical Summary ---
Author Organization [facility] Address [address] [place] [address] Care Team Providers Care Control Director Name Role Phone Napoleon Gutierrez DO Primary Care Provider [phone] Allergies Active Allergy Reactions Criticality Noted Date Comments Penicillins Sulfa (Sulfonamide Antibiotics) Medications orphenadrine ER (NORFLEX) 100 mg 12 hr tabletIndication s:Muscle Spasm Take 1 tablet (100 mg total) by mouth 2 (two) times a day 15 tablet 06/16/2023 Active Social History Tobacco Use Types Packs/Day Years Used Date Smoking Tobacco: Never Assessed Personal Safety Answer Date Recorded Getting School Help Needed Not on file 07/01 Comments No Sex and Gender Information Value Date Recorded Sex Assigned at Not on file Legal Sex Female 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 BICYCLE COURIER Gender Identity Not on file Sexual Orientation Not on file Last Filed Vital Signs Vital Sign Reading Time Taken Comments Blood Pressure 142/79 06/16/2023 3:30 PM BICYCLE COURIER Pulse 57 06/16/2023 3:30 PM BICYCLE COURIER Temperature 37.1 C (98.7 F) 06/16/2023 11:29 AM BICYCLE COURIER Respiratory Rate 20 06/16/2023 3:30 PM BICYCLE COURIER Oxygen Saturation 99% 06/16/2023 3:30 PM BICYCLE COURIER Inhaled Oxygen Concentration - - Weight 74.8 kg (165 lb) 06/16/2023 11:29 AM BICYCLE COURIER Height 152.4 cm (5') 06/16/2023 11:29 AM BICYCLE COURIER Body Mass Index 32.22 06/16/2023 11:29 AM BICYCLE COURIER Plan of Treatment Health Maintenance Due Date Last Done Comments Cervical Cancer Screening 1970 Colon Cancer Screening-Colonoscopy 1970 Depression Screening 1970 Hepatitis C Screening 1970 DTaP/Tdap/Td Vaccine (1 - Tdap) 1981 Hepatitis B Screening 1988 Regular Well Visit/Exam 18-64 1988 Zoster Vaccine (1 of 2) 2020 Covid-19 Vaccine (3 - season) 2024 08/11/2021, 10/21/2020 Influenza Vaccine (#1) 2024 Breast Cancer Screening-Mammogram 05/13/2025 05/13/2024, 05/10/2023, 02/17/2022, Additional history exists Pneumococcal vaccine <65 Aged Out No longer eligible based on patient's age to complete this topic Procedures Procedure Name Priority Date/Time Associated Diagnosis Comments SCREENING MAMMOGRAM BILATERAL W JOSHUA Schedule Routine, Read Routine (OP Routine) 05/13/2024 11:41 AM CDT Screening mammogram, encounter for from Last 3 Months or Most Recently Relevant to Health Maintenance Results * Screening Mammogram Bilateral W Joshua (05/13/2024 11:41 AM CDT) Anatomical Region Laterality Modality Breast Bilateral Mammography Narrative 05/14/2024 11:57 AM CDT Mammogram Technique: Bilateral Digital Breast Tomosynthesis, Bilateral C-view 2D Screening mammogram. Views obtained: bilateral craniocaudal and bilateral mediolateral oblique. Computer Aided Detection was performed. Mammogram Findings: The present examination has been compared to prior imaging studies performed at [facility] on 02/03/2021, 02/17/2022 and 05/10/2023. There are scattered areas of fibroglandular density. There is no suspicious abnormality in either breast. Impression: There is no mammographic evidence of malignancy. Annual screening mammography is recommended. OVERALL FINAL ASSESSMENT: BI-RADS CATEGORY 1: Negative. Procedure Note Erin Herron MD - 05/14/2024 Mammogram Technique: Bilateral Digital Breast Tomosynthesis, Bilateral C-view 2D Screening mammogram. Views obtained: bilateral craniocaudal and bilateral mediolateral oblique. Computer Aided Detection was performed. Mammogram Findings: The present examination has been compared to prior imaging studies performed at [facility] on 02/03/2021, 02/17/2022 and 05/10/2023. There are scattered areas of fibroglandular density. There is no suspicious abnormality in either breast. Impression: There is no mammographic evidence of malignancy. Annual screening mammography is recommended. OVERALL FINAL ASSESSMENT: BI-RADS CATEGORY 1: Negative. us Self Screening Mammogram IMG MAMMO PROCEDURES Fi nal Result from Last 3 Months or Most Recently Relevant to Health Maintenance Insurance [employer] [facility] Care Teams Control Director Relationship Specialty Start Date End Date Napoleon Gutierrez DO [address] [facility] [place] [address] [place], [place] [id number] PCP - General Internal Medicine 02/20/24
--- OUTSIDE RECORDS SUMMARY | 2024-09-29 16:15 | XMS_ITS | Continuity of Care Document ---
Author Organization [facility] Address [address] [address] Insurance Providers Payer Plan Claims Address Claims Phone Policy Number Group Number Relation Employer Guarantor Name Guarantor Guarantor Address Guarantor Phone Salima GOPI Fournier [address], [place] [address] tel:[phone] Self Frederick Silvanorex Chiu [address] [place] [address] [id number] [place] GOPI Fournier [address], [place] [address] tel:[phone] Self Frederick Schaefer Aram [address] [place] [address] [id number] Salima Fournier [address], [place] [address] tel:[phone] Self Frederick Schaefer Aram [address] [place] [address] [id number] Problems Unknown Problems Results Test Value / Unit Interpretation Reference Ran ge Lipid Panel[[id number]] Collected: 07/25/2023 03:48 PM Specimen Received: 07/25/2023 05:00 AM Source: [facility] Cholesterol, Total [436958] 274 mg/dL H 100-199 mg/dL Triglycerides [368964] 52 mg/dL 0-149 mg/dL HDL Cholesterol [227800] 136 mg/dL >39 mg/dL VLDL Cholesterol Leon [874888] 8 mg/dL 5-40 mg/dL LDL Chol Calc ([facility]) [095464] 130 mg/dL H 0-99 mg/dL Hemoglobin A1c[[id number]] Collected: 07/25/2023 03:48 PM Specimen Received: 07/25/2023 05:00 AM Source: [facility] Hemoglobin A1c [824264] 5.0 % 4.8- 5.6 % . Prediabetes: 5.7 - 6.4 Courtney betes: >6.4 Glycemic control for adults with diabetes: 7.0 Lipid Panel[[id number]] Collected: 08/10/2022 04:24 PM Specimen Received: 08/10/2022 05:00 AM Source: [facility] Cholesterol, Total [488525] 233 mg/dL H 100-199 mg/dL Triglycerides [903969] 43 mg/dL 0-149 mg/dL HDL Cholesterol [353129] 120 mg/dL >39 mg/dL VLDL Cholesterol Leon [557075] 7 mg/dL 5-40 mg/dL LDL Chol Calc ([facility]) [543448] 106 mg/dL H 0-99 mg/dL Hemoglobin A1c[112415] Collected: 08/10/2022 04:24 PM Specimen Received: 08/10/2022 05:00 AM Source: [facility] Hemoglobin A1c [008035] 5.1 % 4.8- 5.6 % . Prediabetes: 5.7 - 6.4 Di abetes: >6.4 Glycemic control for adults with diabetes: 7.0 Albumin/Creatinine Ratio,Uri ne[228439] Collected: 02/10/2022 05:41 PM Specimen Received: 02/10/2022 05:00 AM Source: [facility] Creatinine, Urine [474630] 45.9 mg/dL N ot Estab. mg/dL Albumin, Urine [757366] 3.0 ug/mL Not Estab. ug/mL Verified by repeat analysi s Alb/Creat Ratio [397654] 7 mg/g creat 0-2 9 mg/g creat Normal: 0 - 29 Moderately in creased: 30 - 300 Severely increased: >300 Comp. Metabolic Panel (14)[3 27232] Collected: 01/27/2022 03:39 PM Specimen Received: 01/27/2022 05:00 AM Source: [facility] Glucose [528116] 92 mg/dL 65-99 mg/dL BUN [814334] 7 mg/dL 6-24 mg/dL Creatinine [620549] 0.54 mg/dL L 0.57-1.0 0 mg/dL eGFR [183175] 111 mL/min/1.73 >59 mL/min/ 1.73 BUN/Creatinine Ratio [024940] 13 9-23 Sodium [146814] 142 mmol/L 134-144 mmol /L Potassium [162096] 4.6 mmol/L 3.5-5.2 m mol/L Chloride [719760] 102 mmol/L 96-106 mmo l/L Carbon Dioxide, Total [986949] 25 mmol/L 20-29 mmol/L Calcium [971025] 9.3 mg/dL 8.7-10.2 mg /dL Protein, Total [376939] 6.5 g/dL 6.0- 8.5 g/dL Albumin [061249] 3.9 g/dL 3.8-4.9 g/d L Globulin, Total [470800] 2.6 g/dL 1.5 -4.5 g/dL A/G Ratio [094319] 1.5 1.2-2.2 Bilirubin, Total [882230] 0.2 mg/dL 0. 0-1.2 mg/dL Alkaline Phosphatase [881840] 61 IU/L 44-121 IU/L AST (SGOT) [572637] 31 IU/L 0-40 IU/ L ALT (SGPT) [306562] 40 IU/L H 0-32 IU/ L Lipid Panel[297952] Collected: 01/27/2022 03:39 PM Specimen Received: 01/27/2022 05:00 AM Source: [facility] Cholesterol, Total [469385] 208 mg/dL H 100-199 mg/dL Triglycerides [457240] 51 mg/dL 0-149 mg/dL HDL Cholesterol [399787] 88 mg/dL >39 mg/dL VLDL Cholesterol Leon [897640] 9 mg/dL 5-40 mg/dL LDL Chol Calc ([facility]) [884311] 111 mg/dL H 0-99 mg/dL Hemoglobin A1c[694141] Collected: 01/27/2022 03:39 PM Specimen Received: 01/27/2022 05:00 AM Source: [facility] Hemoglobin A1c [796846] 5.0 % 4.8- 5.6 % . Prediabetes: 5.7 - 6.4 Courtney betes: >6.4 Glycemic control for adults with diabetes: 7.0 Unable To Void[039450] Collected: 01/27/2022 03:39 PM Specimen Received: 01/27/2022 05:00 AM Source: [facility] Unable To Void [415628] Patient unable to void. Urin e to be collected at a later date. Comp. Metabolic Panel (14)[3 83376] Collected: 08/30/2021 04:31 PM Specimen Received: 08/30/2021 05:00 AM Source: [facility] Glucose [245999] TNP mg/dL Test not performed. Serum wa s in contact with cells when receivedwhich will make the result inaccurate. BUN [789414] 13 mg/dL 6-24 mg/dL Creatinine [502156] 0.62 mg/dL 0.57-1.0 0 mg/dL eGFR If NonAfricn Am [957280] 105 mL/min/1.73 >59 mL/min/1.73 eGFR If Africn Am [971594] 122 mL/min/1.73 >59 mL/min/1.73 In accordance with recomme ndations from the NKF-ASN Task force, [facility] is in the process of updating its eGFR calculation to the 2020 CKD-EPI creatinine equation that estimates kidney function without a race variable. BUN/Creatinine Ratio [497756] 21 9-23 Sodium [910609] 139 mmol/L 134-144 mmol /L Potassium [697044] TNP mmol/L Test not performed. Serum wa s in contact with cells when receivedwhich will make the result inaccurate. Chloride [645480] 102 mmol/L 96-106 mmo l/L Carbon Dioxide, Total [362458] 20 mmol/L 20-29 mmol/L Calcium [470471] 9.1 mg/dL 8.7-10.2 mg /dL Protein, Total [529871] 7.2 g/dL 6.0- 8.5 g/dL Albumin [541664] 4.4 g/dL 3.8-4.8 g/d L Globulin, Total [808481] 2.8 g/dL 1.5 -4.5 g/dL A/G Ratio [306309] 1.6 1.2-2.2 Bilirubin, Total [972593] 0.3 mg/dL 0. 0-1.2 mg/dL Alkaline Phosphatase [963128] 61 IU/L 44-121 IU/L AST (SGOT) [259139] 18 IU/L 0-40 IU/ L ALT (SGPT) [252669] 17 IU/L 0-32 IU/ L Lipid Panel[594158] Collected: 08/30/2021 04:31 PM Specimen Received: 08/30/2021 05:00 AM Source: [facility] Cholesterol, Total [581988] 215 mg/dL H 100-199 mg/dL Triglycerides [182063] 73 mg/dL 0-149 mg/dL HDL Cholesterol [731744] 106 mg/dL >39 mg/dL VLDL Cholesterol Leon [350114] 13 mg/dL 5-40 mg/dL LDL Chol Calc ([facility]) [933478] 96 mg/dL 0-99 mg/dL Hemoglobin A1c[978701] Collected: 08/30/2021 04:31 PM Specimen Received: 08/30/2021 05:00 AM Source: [facility] Hemoglobin A1c [889565] 5.1 % 4.8- 5.6 % . Prediabetes: 5.7 - 6.4 Courtney betes: >6.4 Glycemic control for adults with diabetes: 7.0 Allergies, adverse reactions, alerts No known allergies and adverse reactions Medications No administered medications reported Vital Signs No vital signs reported Social History No smoking Hx information available
--- OUTSIDE RECORDS SUMMARY | 2024-09-29 16:15 | XMS_ITS | Continuity of Care Document ---
Author Organization [facility] Address [address] [place] [address] Phone Care Team Providers Care Skidder Name Role Phone Symone Booth Unavailable Unavailable Allergies, Adverse Reactions, Alerts Substance Reaction Status Criticality Sulfa (Sulfonamide Antibiotics) Unknown Active No Information Penicillins Unknown Active No Information Procedures Procedure Date X-ray exam shoulder minimum 2 views Depo Medrol Methylprednisolone 40 MG inj Asp/inject major joint or bursa w/o US g uidance Office/outpatient visit,est, mod 2015 Global/Postop followup visit Meniscectomy Med OR Lat Office/outpatient visit,est, mod 2015 MRI lower extrm joint, w/o contrast Office/outpatient visit,new, mod 2015 Advance Directives Directive Yes / No Effective Date File Name No Information Encounters Encounter Description Practice Location Reason(s) For Visit Diagnoses Date Provider Providers Copied on Encounter Office/outpat ient visit,est, mod [facility], [address] [facility], [place], [place], [id number], [place] tel:[phone] [email or web address] right shoulder pain (chief complaint) Pain in right shoulderPrimary osteoarthritis, right shoulder 0-201 6 Richard Ashby. [address] [facility], [place], [place], [address] , [place]. tel:[phone] [facility], [address], [place], [place], [id number], [place] [phone] [facility] post op right knee (chief complaint) Pain in right knee 6 Rocky Stockton. [address], [place], [place], [address] , [place]. tel:[phone] [facility], [address], [place], [place], [address], [place] tel:[phone] [facility] [place] Oth meniscus derangements, unsp medial meniscus, right knee 6 Rocky Stockton. [address] [facility] [facility] [facility] [address], [place], [place], [address] , [place]. tel:[phone] Office/outpat ient visit,[facility], [facility], [address], [place], [place], [address], [place] tel:[phone] [facility] right knee - test results (chief complaint) Oth meniscus derangements, unsp medial meniscus, right knee 6 Rocky Stockton. [address] [facility], [facility] [address], [place], [place], [id number] , [place]. tel:[phone] [facility], [address] [address], [place], [place], [address], [place] [phone] [facility] Oth meniscus derangements, unsp medial meniscus, right knee 6 [facility]. [address], [place], [place], [address] , [place]. tel:[phone] Referring Provider: Mahin Yi, [address] [facility] [address], [place], [address] . tel:[phone] Office/outpat ient visit,[facility], [facility], [address] [facility] [address], [place], [place], [address], [place] tel:[phone] [facility] right knee (chief complaint) Pain in right kneeOther meniscus derangement of medial meniscus of rt knee 6 Rocky Stockton. [address], [place], [place], [address] , [place]. tel: [phone] Family History Family Member Type Diagnosis Age At Onset Problem (finding) Family history of alcoh olism Problem (finding) Family history of Diabe philippe mellitus Problem (finding) Family history of Cance r, unknown Problem (finding) Family history of hyper tension Immunizations Vaccine Date Status Comments Flu (split) (3 yrs or older) administered Source: Other Provider Payers Payer name Insurance type Covered democrat ID Authoriza tion(s) [employer] [employer] Blue Shiel d [facility] [id number] Social History Type Description Quantity Date Captured [...] 92.986 kg (205.00 lbs) 40.0 4 kg/m kelly (2) Chief Complaint And Reason For Visit [...]
--- OUTSIDE RECORDS SUMMARY | 2024-09-29 16:15 | XMS_ITS | Referral Summary ---
Author Organization [facility] Address [address] [place] [address] Care Team Providers Care Vegetable Trimmer Name Role Phone Napoleon Gutierrez DO Primary Care Provider [phone] Allergies Active Allergy Reactions Criticality Noted Date [...] on file Legal Sex Female 4:21 AM BINDER STRIPPER MACHINE Gender Identity Not on file Sexual Orientation Not on file Last Filed Vital Signs Vital Sign Reading Time Taken Comments Blood Pressure 142/79 06/16/2023 3:30 PM BINDER STRIPPER MACHINE Pulse 57 06/16/2023 3:30 PM BINDER STRIPPER MACHINE Temperature 37.1 C (98.7 F) 06/16/2023 11:29 AM BINDER STRIPPER MACHINE Respiratory Rate 20 06/16/2023 3:30 PM BINDER STRIPPER MACHINE Oxygen Saturation 99% 06/16/2023 3:30 PM BINDER STRIPPER MACHINE Inhaled Oxygen Concentration - - Weight 74.8 kg (165 lb) 06/16/2023 11:29 AM BINDER STRIPPER MACHINE Height 152.4 cm (5') 06/16/2023 11:29 AM BINDER STRIPPER MACHINE Body Mass Index 32.22 06/16/2023 11:29 AM BINDER STRIPPER MACHINE Plan of Treatment Not on file Procedures Procedure Name Priority Date/Time Associated Diagnosis [...] compared to prior imaging studies performed at [facility] on 02/03/2021, 02/17/2022 and 05/10/2023. There [...] compared to prior imaging studies performed at [facility] on 02/03/2021, 02/17/2022 and 05/10/2023. There are scattered areas of fibroglandular density. There is no suspicious abnormality in either breast. Impression: There is no mammographic evidence of malignancy. Annual screening mammography is recommended. OVERALL FINAL ASSESSMENT: BI-RADS CATEGORY 1: Negative. us Self Screening Mammogram IMG MAMMO PROCEDURES Fi nal Result from Last 3 Months or Most Recently Relevant to Health Maintenance Insurance Network DC Network DC Network DC Care Teams Vegetable Trimmer Relationship Specialty Start Date End Date Napoleon Gutierrez DO [address] [id number] PCP - General Internal Medicine 02/20/24
--- OUTSIDE RECORDS SUMMARY | 2024-09-29 16:15 | XMS_ITS | Encounter Summary ---
Author Organization [facility] Address [address] [place] [address] Care Team Providers Care Executive Personal Assistant Name Role Phone KrissDiogenes chaujohnathan Carvalho DO Primary Care Provider Reason for Visit * Reason Onset Date Comments Nurse Only 08/30/2023 Encounter Details Date Type Department Care Team (Late st Contact Info) Description 08/30/2023 Telephone [facility] - Centralized Scheduling [address] [place] [phone] Inna Trammell MD [facility] [place] [address] Nurse Only Social History Tobacco Use Types Packs/Day Years [...] encounter Miscellaneous Notes * Telephone Encounter - Candy Powers - 09/03/2023 9:18 AM CST Called and lft for patient to give me a call back at my direct phone line ([phone]). I emailed patient portion of [employer] Application to patient's email and waiting for provider to complete her portion as well. Once application portions are signed I will fax to [employer]. Candy Powers L BASTER * Telephone Encounter - Sarika Trammell - 08/30/2023 4:05 PM CST Pt is calling dx Psorasis, she is having issues with Skyrizi,pt does not have prescription yet the cost is 6000$ and she is also calling to see what her results where for biopsy, pt would like to speak to the office L BASTER documented in this encounter Plan of Treatment Upcoming Encounters Date Type Department Care Team (Late st Contact Info) Description 11/18/2024 1:30 PM CDT Office Visit [facility] - Dermatology [address] [facility] [facility] [place] [phone] Inna Trammell MD [address] [facility] [place] [address] documented as of this encounter Visit Diagnoses Not on filedocumented in this encounter Care Teams Executive Personal Assistant Relationship Specialty Start Date End Date Roberto Carlos Birmingham DO [address] [facility] [address] [place] [address] PCP - General Internal Medicine 06/01/16 documented as of this encounter
--- OUTSIDE RECORDS SUMMARY | 2024-09-29 16:15 | XMS_ITS | Continuity of Care Document ---
Author Organization [facility] Address [address] [place] [address] Phone Care Team Providers Care Wellness Spa Manager Name Role Phone Александр DUTTON, Ryland Unavailable Unavailable Procedures Procedure Date INJ SPINE CERV/THOR W/ IMAGING GUIDANCE SURGICAL TRAY LOW OSMOLAR CONTRAST (200 TO 299 MG IODI NE) Injection, Triamcinolone Acetonide, 10mg Advance Directives Directive Yes / No Effective Date File Name No Information Encounters Encounter Description Practice Location Reason(s) For Visit Diagnoses Date Provider Providers Copied on Encounter [facility], [address], [place], [place], [address], [place] tel:[phone] [facility] No Information Александр Marcelino. [address] , [place], [place], [address], [place]. tel:[phone] Referring Provider: Ramon Casey DO, [address], [place], [address]. tel:[phone] Family History Family Member Type Diagnosis Age At Onset No Information Payers Payer name Insurance type Covered republican ID Authoriza tion(s) [facility] [id number] Social History Type Description Quantity Date Captured [...]
--- OUTSIDE RECORDS SUMMARY | 2024-09-29 16:16 | XMS_ITS | Clinical Summary ---
Author Organization [facility] Address [address] [facility] [place] [address] Care Team Providers Care Animal Assisted Therapist Name Role Phone Roberto Carlos Birmingham DO Primary Care Provider Source Comments [facility],non-owned Affiliates and Associated Physician Practices is amultiple site organization consisting of ambulatory clinics and hospital sitesin [place], [place], [place] and [place]. This disclosure is being madepursuant to the Care Everywhere program and may not contain all information available regarding this patient. Last updated 18.[facility] Allergies Active Allergy Reactions Criticality Noted Date Comments Sulfa Drugs Nausea and/or Vomiting 08/24/2019 Early adulthood allergy. Medications * Be aware that medications may not be up to date on this document. Alwaysverify current medications with the patient. Medication Sig Dispensed Refills Start Date End Date Status vitamin D, ergocalciferol, (Drisdol) 1.25 MG (84229 UT) capsule 05/14/2023 Active risankizumab-rzaa (Skyrizi Pen) 150 MG/ML injectionIndicatio ns:Other psoriasis Inject 1 mL subcutaneously on day 0. Inject 1 mL subcutaneously on day 28. 2 mL 08/30/2023 Active Additional Information Patient not taking.Reported on 11/19/2023 naltrexone (Revia) 50 MG tablet Take 1 (one) tablet by mouth once daily 11/05/2023 Active risankizumab-rzaa (Skyrizi Pen) 150 MG/ML injectionIndicatio ns:Other psoriasis Inject 1 mL subcutaneously on day 0. Inject 1 mL subcutaneously on day 28. 2 mL 06/23/2024 Active risankizumab-rzaa (Skyrizi Pen) 150 MG/ML injectionIndicatio ns:Other psoriasis Inject 1mL subcutaneously every 12 weeks. 12 week supply. 1 mL 2 06/25/2024 Active Active Problems Problem Noted Date Diagnosed Date Pain in right knee 08/24/2019 Pain in right shoulder 08/24/2019 Primary osteoarthritis, right shoulder 0 Arthritis 11/17/2017 Backache 11/17/2017 Heartburn 11/17/2017 Hemorrhoids 11/17/2017 Other meniscus derangements, unspecified medial meniscus, right knee 12/31/2015 Gastro-esophageal reflux disease without esophag itis 10/15/2012 Idiopathic osteoarthritis 10/15/2012 Other nonthrombocytopenic purpura 10/15/2012 Proteinuria 10/15/2012 Overview (08/24/2019): Converted unresolved ICD9, potential mismatch. 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 Encounters Date Type Department Care Team Description 09/29/2024 Telephone [facility] - Centralized Scheduling [address] [place] [phone] Inna Trammell MD Question from Last 3 Months Social History Tobacco Use Types Packs/Day Years Used Date Smoking Tobacco: Never Smokeless Tobacco: Never Tobacco Cessation:Counseling Given: Not Answered Alcohol Use Standard Drinks/Week Comments Yes 0 (1 standard drink = 0.6 oz pur e alcohol) 1/ day Sex and Gender Information Value Date Recorded Sex Assigned at Not on file Gender Identity Not on file Sexual Orientation Not on file Last Filed Vital Signs Vital Sign Reading Time Taken Comments Blood Pressure 136/84 08/15/2020 3:14 PM SEAMING MACHINE OPERATOR Pulse 67 08/15/2020 3:14 PM SEAMING MACHINE OPERATOR Temperature 36.8 C (98.2 F) 08/15/2020 3:14 PM SEAMING MACHINE OPERATOR Respiratory Rate 17 08/15/2020 3:14 PM SEAMING MACHINE OPERATOR Oxygen Saturation 98% 08/15/2020 3:14 PM SEAMING MACHINE OPERATOR Inhaled Oxygen Concentration - - Weight 79.8 kg (176 lb) 08/15/2020 3:14 PM SEAMING MACHINE OPERATOR Height 152.4 cm (5') 08/15/2020 3:14 PM SEAMING MACHINE OPERATOR Body Mass Index 34.37 08/15/2020 3:14 PM SEAMING MACHINE OPERATOR Plan of Treatment Upcoming Encounters Date Type Department Care Team (Late st Contact Info) Description 11/18/2024 1:30 PM CDT Office Visit [facility] - Dermatology [address] [facility] [place] [phone] Inna Trammell MD [address] [facility] [place] [address] Health Maintenance Due Date Last Done Comments COLOGUARD (AGES 45-75) - COLON CA SCREENING 1970 COLON MONITORING 1970 COLONOSCOPY - COLON CA SCREENING 1970 CT COLONOGRAPHY - COLON CA SCREENING 1970 Colorectal Cancer Screening 1970 FIT - COLON CA SCREENING 1970 FLEX SIG - COLON CA SCREENING 1970 LIPID TESTING 1970 PAP SMEAR 1970 HIV SCREENING 1985 DTAP/TDAP/TD VACCINES (1 - Tdap) 1989 HEPATITIS B VACCINE (1 of 3 - 19+ 3-dose series) 1989 PNEUMOCOCCAL VACCINE 50+ (1 of 1 - PCV) 2020 ZOSTER VACCINE (1 of 2) 2020 COVID-19 VACCINE (1 - season) 2024 INFLUENZA VACCINE (#1) 2024 DEPRESSION SCREENING 07/16/2024 MAMMOGRAM 05/13/2026 05/13/2024, 04/16, 05/10/2023, Additional history exists HEPATITIS C SCREENING Completed 08/20/2023, 013 HIB VACCINE Aged Out No longer eligi ble based on patient's age to complete this topic HPV VACCINE Aged Out No longer eligi ble based on patient's age to complete this topic MENINGOCOCCAL (Group B) VACCINE SHARED DECISION-MAKING Aged Out No longer eligible based on patient's age to complete this topic MENINGOCOCCAL GROUPS A/C/Y/W VACCINE Aged Out No longer eligible based on patient's age to complete this topic Procedures Procedure Name Priority Date/Time Associated Diagnosis Comments HEPATITIS C ANTIBODY Routine 08/20/2023 5:15 PM SEAMING MACHINE OPERATOR Arthritis from Last 3 Months or Most Recently Relevant to Health Maintenance Results * HEPATITIS C ANTIBODY (08/20/2023 5:15 PM SEAMING MACHINE OPERATOR) Hepatitis C Antibody Non-react octavio Non-reac tive 08/20/2023 6:55 PM SEAMING MACHINE OPERATOR [facility] Comment:Hepatitis C Antibody screen indicates no serologic evidence of past or current infection with Hepatitis C Virus. Patients with unexplained liver disease who are immunocompromised or suspected of having acute Hepatitis C infection may benefit from Nucleic Acid Test (SHANNON) for Hepatitis C Viral RNA to confirm Hepatitis C status. Blood BLOOD SPECIMEN / Unknown Lab Venipuncture / Unknown 08/20/2023 5:15 PM SEAMING MACHINE OPERATOR 08/20/2023 6:22 PM SEAMING MACHINE OPERATOR Inna Trammell MD LAB - CHEMISTRY VINICIO CHAIDEZ [facility] [address] [id number], [facility] [phone] from Last 3 Months or Most Recently Relevant to Health Maintenance Care Teams Animal Assisted Therapist Relationship Specialty Start Date End Date Roberto Carlos Birmingham DO [address] [place] [address] PCP - General Internal Medicine 06/01/16
--- OUTSIDE RECORDS SUMMARY | 2024-09-29 16:16 | XMS_ITS | Patient Health Summary ---
Author Organization [facility] Address [address] [place] [address] Care Team Providers Care Planishing Press Operator Name Role Phone Roberto Carlos [place] Primary Care Provider Note from [facility],non-owned Affiliates and Associated Physician Practices is amultiple site organization consisting of ambulatory clinics and hospital sitesin [place], [place], [place] and [place]. This disclosure is being madepursuant to the Care Everywhere program and may not contain all information available regarding this patient. Last updated 18.[facility] Allergies * Sulfa Drugs(Nausea and/or Vomiting) * Amoxicillin,Inactive Medications * Be aware that medications may not be up to date on this document. Alwaysverify current medications with the patient. * vitamin D, ergocalciferol, (Drisdol) 1.25 MG (68925 UT) capsule(Started 05/14/2023) * risankizumab-rzaa (Skyrizi Pen) 150 MG/ML injection(Started 08/30/2023) Inject 1 mL subcutaneously on day 0. Inject 1 mL subcutaneously on day 28. * naltrexone (Revia) 50 MG tablet(Started 11/05/2023) Take 1 (one) tablet by mouth once daily * risankizumab-rzaa (Skyrizi Pen) 150 MG/ML injection(Started 06/23/2024) Inject 1 mL subcutaneously on day 0. Inject 1 mL subcutaneously on day 28. * risankizumab-rzaa (Skyrizi Pen) 150 MG/ML injection(Started 06/25/2024) Inject 1mL subcutaneously every 12 weeks. 12 week supply. 2 refills by 06/25/2025 Active Problems Problem Noted Date Diagnosed Date Pain in right knee 08/24/2019 Pain in right shoulder 08/24/2019 Primary osteoarthritis, right shoulder 0 Arthritis 11/17/2017 Backache 11/17/2017 Heartburn 11/17/2017 Hemorrhoids 11/17/2017 Other meniscus derangements, unspecified medial meniscus, right knee 12/31/2015 Gastro-esophageal reflux disease without esophag itis 10/15/2012 Idiopathic osteoarthritis 10/15/2012 Other nonthrombocytopenic purpura 10/15/2012 Proteinuria 10/15/2012 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 Social History Tobacco Use Types Packs/Day Years [...] Comments Blood Pressure 136/84 08/15/2020 3:14 PM CIVIL ENGINEER'S AIDE Pulse 67 08/15/2020 3:14 PM CIVIL ENGINEER'S AIDE Temperature 36.8 C (98.2 F) 08/15/2020 3:14 PM CIVIL ENGINEER'S AIDE Respiratory Rate 17 08/15/2020 3:14 PM CIVIL ENGINEER'S AIDE Oxygen Saturation 98% 08/15/2020 3:14 PM CIVIL ENGINEER'S AIDE Inhaled Oxygen Concentration - - Weight 79.8 kg (176 lb) 08/15/2020 3:14 PM CIVIL ENGINEER'S AIDE Height 152.4 cm (5') 08/15/2020 3:14 PM CIVIL ENGINEER'S AIDE Body Mass Index 34.37 08/15/2020 3:14 PM CIVIL ENGINEER'S AIDE Procedures * QUANTIFERON TB-GOLD(Performed 06/19/2024) Performed for High risk medications (not anticoagulants) long-term use * HEPATITIS C ANTIBODY(Performed 08/20/2023) Performed for Arthritis * HEPATITIS B PANEL(Performed 08/20/2023) Performed for Arthritis * QUANTIFERON-TB GOLD PLUS 4-TUBE(Performed 08/20/2023) Performed for High risk medications (not anticoagulants) long-term use * OK TANGNTL BX SKIN SINGLE LES(Performed 08/20/2023) Performed for Rash of unknown cause * DERMATOPATHOLOGY(Performed 08/20/2023) Performed for Rash of unknown cause * STREP A SCREEN - POINT OF CARE (AMB) STL(Performed 08/15/2020) Performed for Sore throat * STREP A SCREEN - POINT OF CARE (AMB) STL(Performed 08/24/2019) Performed for Strep throat * STREP A SCREEN - POINT OF CARE (AMB) STL(Performed 06/01/2016) Performed for Strep throat * ASO TITER(Performed 05/26/2014) * CULTURE STREP GROUP A(Performed 05/25/2014) * URINALYSIS MICROSCOPIC ONLY REFLEXED(Performed 05/21/2014) * URINALYSIS W/MICROSCOPIC NO CULTURE(Performed 05/21/2014) * CBC W/O DIFFERENTIAL(Performed 05/21/2014) * COMPREHENSIVE METABOLIC PANEL(Performed 05/21/2014) * C-REACTIVE PROTEIN(Performed 05/21/2014) * ERYTHROCYTE SEDIMENTATION RATE(Performed 05/21/2014) * DNA ANTIBODY DOUBLE STRANDED(Performed 05/21/2014) * HISTONE ANTIBODY(Performed 05/21/2014) * MONONITROTOLUENE OPERATOR ANTIBODY(Performed 05/21/2014) * TRAMMELL (SM) ANTIBODY NASIMA(Performed 05/21/2014) * COMPLEMENT TOTAL(Performed 05/21/2014) * COMPLEMENT C4(Performed 05/21/2014) * COMPLEMENT C3(Performed 05/21/2014) * CHROMATIN ANTIBODY(Performed 05/21/2014) * SCLERODERMA 70 (SCL) ANTIBODY(Performed 05/21/2014) * SS-A/SS-B (SJOGREN'S) ANTIBODY PANEL(Performed 05/21/2014) * IGOR BLOOD SCREEN W/REFLEX TITER(Performed 05/21/2014) * MPO + PR3 W/ REFLEX ANCA(Performed 05/21/2014) * LAB HISTORICAL RESULTS-ONBASE(Performed 06/23/2013) * CRYOGLOBULIN SCREEN W/REFLEX CRYOGLOBULIN PROFILE(Performed 05/26/2013) * URINALYSIS MICROSCOPIC ONLY REFLEXED(Performed 05/26/2013) * COMPLEMENT TOTAL(Performed 05/26/2013) * HLA TYPING B27(Performed 05/26/2013) * PROTEINASE 3(Performed 05/26/2013) * SCLERODERMA 70 (SCL) ANTIBODY(Performed 05/26/2013) * HISTONE ANTIBODY(Performed 05/26/2013) * NEUTROPHIL CYTOPLASMIC ANTIBODY(Performed 05/26/2013) * MONONITROTOLUENE OPERATOR ANTIBODY(Performed 05/26/2013) * SS-A/SS-B (SJOGREN'S) ANTIBODY PANEL(Performed 05/26/2013) * TRAMMELL (SM) ANTIBODY NASIMA(Performed 05/26/2013) * COMPLEMENT C4(Performed 05/26/2013) * COMPLEMENT C3(Performed 05/26/2013) * IGOR BLOOD SCREEN W/REFLEX TITER(Performed 05/26/2013) * LUPUS ANTICOAGULANT PANEL W RFLX(Performed 05/26/2013) * HEPATITIS C ANTIBODY(Performed 05/26/2013) * CARDIOLIPIN ANTIBODY IGM(Performed 05/26/2013) * CARDIOLIPIN ANTIBODY IGG(Performed 05/26/2013) * CARDIOLIPIN ANTIBODY IGA(Performed 05/26/2013) * BETA-2 GLYCOPROTEIN 1 ANTIBODY IGG(Performed 05/26/2013) * BETA-2 GLYCOPROTEIN 1 ANTIBODY IGM(Performed 05/26/2013) * RHEUMATOID FACTOR BLOOD QUANTITATIVE(Performed 05/26/2013) * CYCLIC CITRULLINATED PEPTIDE(CCP) AB IGG(Performed 05/26/2013) * CK BLOOD(Performed 05/26/2013) * HEPATITIS B SURFACE ANTIGEN W RFLX CONFIRMATION(Performed 05/26/2013) * T4 FREE(Performed 05/26/2013) * TSH(Performed 05/26/2013) * URINALYSIS W/MICROSCOPIC NO CULTURE(Performed 05/26/2013) * C-REACTIVE PROTEIN(Performed 05/26/2013) * ERYTHROCYTE SEDIMENTATION RATE(Performed 05/26/2013) * CBC W/O DIFFERENTIAL(Performed 05/26/2013) * COMPREHENSIVE METABOLIC PANEL(Performed 05/26/2013) * COMPREHENSIVE METABOLIC PANEL(Performed 04/11/2013) * CBC W AUTO DIFFERENTIAL(Performed 04/11/2013) * MRI FOOT LEFT WO CONTRAST(Performed 02/26/2013) * URINALYSIS MICROSCOPIC ONLY REFLEXED(Performed 02/04/2013) * URINALYSIS W/MICROSCOPIC NO CULTURE(Performed 02/04/2013) * URINALYSIS MICROSCOPIC ONLY REFLEXED(Performed 02/04/2013) * URINALYSIS W/MICROSCOPIC NO CULTURE(Performed 02/04/2013) * C-REACTIVE PROTEIN(Performed 02/04/2013) * ASO TITER(Performed 02/04/2013) * ERYTHROCYTE SEDIMENTATION RATE(Performed 02/04/2013) * REF LAB-NO MICRO URINE RECEIVED(Performed 02/04/2013) * CBC W AUTO DIFFERENTIAL(Performed 01/30/2013) * COMPREHENSIVE METABOLIC PANEL(Performed 01/30/2013) * CBC W AUTO DIFFERENTIAL(Performed 01/23/2013) * COMPREHENSIVE METABOLIC PANEL(Performed 01/23/2013) * CBC W AUTO DIFFERENTIAL(Performed 01/09/2013) * COMPREHENSIVE METABOLIC PANEL(Performed 01/09/2013) * CBC W AUTO DIFFERENTIAL(Performed 12/27/2012) * COMPREHENSIVE METABOLIC PANEL(Performed 12/27/2012) * COMPREHENSIVE METABOLIC PANEL(Performed 12/20/2012) * CBC W AUTO DIFFERENTIAL(Performed 12/20/2012) * CBC W AUTO DIFFERENTIAL(Performed 12/12/2012) * COMPREHENSIVE METABOLIC PANEL(Performed 12/12/2012) * CULTURE ANAEROBE(Performed 12/02/2012) * GRAM STAIN SMEAR(Performed 12/02/2012) * CULTURE AEROBIC(Performed 12/02/2012) * LAB HISTORICAL RESULTS-ONBASE(Performed 11/28/2012) * CBC W AUTO DIFFERENTIAL(Performed 11/28/2012) * COMPREHENSIVE METABOLIC PANEL(Performed 11/28/2012) * CBC W AUTO DIFFERENTIAL(Performed 11/15/2012) * COMPREHENSIVE METABOLIC PANEL(Performed 11/15/2012) * CBC W AUTO DIFFERENTIAL(Performed 11/08/2012) * COMPREHENSIVE METABOLIC PANEL(Performed 11/08/2012) * CULTURE AEROBIC(Performed 11/08/2012) * CBC W AUTO DIFFERENTIAL(Performed 10/30/2012) * COMPREHENSIVE METABOLIC PANEL(Performed 10/30/2012) * CBC W AUTO DIFFERENTIAL(Performed 10/22/2012) * COMPREHENSIVE METABOLIC PANEL(Performed 10/22/2012) * REF LAB-SPECIMEN STATUS REPORT(Performed 10/21/2012) * CULTURE FUNGUS SKIN HAIR NAILS(Performed 10/21/2012) * CULTURE ANAEROBE(Performed 10/21/2012) * CULTURE AEROBIC(Performed 10/21/2012) * CBC W AUTO DIFFERENTIAL(Performed 10/09/2012) * G6PD QUANTITATIVE(Performed 10/09/2012) * URINALYSIS REFLEX TO MICROSCOPIC NO CULTURE(Performed 10/09/2012) * IGOR W REFLEX DS-DNA+NASIMA+SSJ(Performed 10/09/2012) * COMPREHENSIVE METABOLIC PANEL(Performed 10/09/2012) * URINALYSIS MICROSCOPIC ONLY REFLEXED(Performed 10/09/2012) * DERMATOPATHOLOGY(Performed 09/19/2012) * DERMATOPATHOLOGY(Performed 09/19/2012) Results * QUANTIFERON TB-GOLD (06/19/2024 8:00 AM CIVIL ENGINEER'S AIDE) QuantiFERON Incubation Incubation performed. [facility] INSURANCE BILL QuantiFERON-TB Gold Plus Negative Negative [facility] INSURANCE BILL Comment: No response to M tuberculosis antigens detected. Infection with M tuberculosis is unlikely, but high risk individuals should be considered for additional testing (ATS/IDSA/CDC Clinical Practice Guidelines, 2017). The reference range is an Antigen minus Nil result of <0.35 IU/mL. Chemiluminescence immunoassay methodology Performed at: [address] [place] [address] [id number] [employer] Solar [employer] Designer: Ang Foreman PhD, Phone: [phone] QuantiFERON Criteria Comment [facility] INSURANCE BILL Comment: QuantiFERON-TB Gold Plus is a qualitative indirect test for M tuberculosis infection (including disease) and is intended for use in conjunction with risk assessment, radiography, and other medical and diagnostic evaluations. The QuantiFERON-TB Gold Plus result is determined by subtracting the Nil value from either TB antigen (Ag) value. The Mitogen tube serves as a control for the test. QuantiFERON TB1 Ag Value 0.00 IU/mL [facility] INSURANCE BILL QuantiFERON TB2 Ag Value 0.00 IU/mL [facility] INSURANCE BILL QuantiFERON Nil Value 0.00 IU/mL [facility] INSURANCE BILL QuantiFERON Mitogen Value >10.00 IU/mL [facility] INSURANCE BILL Blood BLOOD SPECIMEN / Unknown 06/19/2024 8:00 AM CIVIL ENGINEER'S AIDE 06/19/2024 Narrative [facility] INSURANCE BILL - 06/22/2024 6:38 AM CIVIL ENGINEER'S AIDE Performed at: [address] [place] [address] [id number] [employer] Solar [employer] Designer: Ang Foreman PhD, Phone: [phone] Inna Trammell MD LAB - CHEMISTRY VINICIO CHAIDEZ [facility] INSURANCE BILL [address] [place] [address] * QUANTIFERON-TB GOLD PLUS 4-TUBE (08/20/2023 5:15 PM CIVIL ENGINEER'S AIDE) [facility] QuantiFERON NIL 0.02 IU/mL 5:49 PM CIVIL ENGINEER'S AIDE [facility] ([facility]) Comment: Performed By: [employer] [address] [place] [address] Chief Crew Scheduler: Rey Resendiz MD, PhD CLIA Number: [id number] QuantiFERON TB Gold Plus Negative Negative 08/22/2023 5:49 PM CIVIL ENGINEER'S AIDE [facility] ([facility]) Comment: Interpretive Data: Quantiferon TB Gold Plus Interferon gamma release is measured for specimens from each of the four collection tubes. A qualitative result (Negative, Positive, or Indeterminate) is based on interpretation of the four values, NIL, MITOGEN minus NIL (MITOGEN-NIL), TB1 minus NIL (TB1-NIL), and TB2 minus NIL (TB2-NIL). The NIL value represents nonspecific reactivity produced by the patient specimen. The MITOGEN-NIL value serves as the positive control for the patient specimen, demonstrating successful lymphocyte activity. The TB1-NIL tube specifically detects CD4+ lymphocyte reactivity, specifically stimulated by the TB1 antigens. The TB2-NIL tube detects both CD4+ and CD8+ lymphocyte reactivity, stimulated by TB2 antigens. An overall Negative result does not completely rule out TB infection. A false-positive result in the absence of other clinical evidence of TB infection is not uncommon. Refer to: Updated Guidelines for Using Interferon Gamma Release Assays to Detect Mycobacterium tuberculosis Infection --- [place], 2010 (http://www.cdc.gov/mmwr/preview/mmwrhtml/vd6718h2.htm), for more information concerning test performance in low-prevalence populations and use in occupational screening. QuantiFERON Plus TB1 Minus NIL 0.00 0.00 - 0.34 IU/mL 08/22/2023 5:49 PM CIVIL ENGINEER'S AIDE [facility] ([facility]) QuantiFERON Plus TB2 Minus NIL 0.00 0.00 - 0.34 IU/mL 08/22/2023 5:49 PM CIVIL ENGINEER'S AIDE [facility] ([facility]) QuantiFERON Mitogen Minus NIL 7.70 IU/mL 08/22/2023 5:49 PM CIVIL ENGINEER'S AIDE [facility]) Blood BLOOD SPECIMEN / Unknown Lab Venipuncture / Unknown 08/20/2023 5:15 PM CIVIL ENGINEER'S AIDE 08/20/2023 6:09 PM CIVIL ENGINEER'S AIDE Inna Trammell MD LAB - CHEMISTRY VINICIO CHAIDEZ [facility]) [address] * HEPATITIS B PANEL (08/20/2023 5:15 PM CIVIL ENGINEER'S AIDE) Hepatitis B Virus Surface Antibody Non-reacti ve Non-react octavio 08/20/2023 6:55 PM CIVIL ENGINEER'S AIDE [facility] Comment: < 8 mIU/mL Hepatitis B surface Antibody (HBsAb). Nonreactive for HBsAb - individual is considered not immune to Hepatitis B Virus infection. Hepatitis B Virus Surface Antigen Non-reacti ve Non-react octavio 08/20/2023 6:55 PM CIVIL ENGINEER'S AIDE [facility] Hepatitis B Core Virus Antibody IgM Non-reacti ve Non-react octavio 08/20/2023 6:55 PM CIVIL ENGINEER'S AIDE [facility] Blood BLOOD SPECIMEN / Unknown Lab Venipuncture / Unknown 08/20/2023 5:15 PM CIVIL ENGINEER'S AIDE 08/20/2023 6:22 PM CIVIL ENGINEER'S AIDE Inna Trammell MD LAB - CHEMISTRY VINICIO CHAIDEZ [facility] [address] [place] [address], [facility] [phone] * HEPATITIS C ANTIBODY (08/20/2023 5:15 PM CIVIL ENGINEER'S AIDE) Only the most recent of2 resultswithin the time period is included. Hepatitis C Antibody Non-react octavio Non-reac tive 08/20/2023 6:55 PM CIVIL ENGINEER'S AIDE [facility] Comment:Hepatitis C Antibody screen indicates no serologic evidence of past or current infection with Hepatitis C Virus. Patients with unexplained liver disease who are immunocompromised or suspected of having acute Hepatitis C infection may benefit from Nucleic Acid Test (SHANNON) for Hepatitis C Viral RNA to confirm Hepatitis C status. Blood BLOOD SPECIMEN / Unknown Lab Venipuncture / Unknown 08/20/2023 5:15 PM CIVIL ENGINEER'S AIDE 08/20/2023 6:22 PM CIVIL ENGINEER'S AIDE Inna Trammell MD LAB - CHEMISTRY VINICIO CHAIDEZ [facility] Organization Address City/State/ZIP Co de Phone Number [facility] [address] [place] [address], [facility] [phone] * OK TANGNTL BX SKIN SINGLE LES (08/20/2023 3:59 PM CIVIL ENGINEER'S AIDE) Narrative Inna Trammell MD - 08/20/2023 3:59 PM CIVIL ENGINEER'S AIDE Will Carter MD 08/20/2023 4:00 PM Risks, benefits and alternatives to shave biopsy were discussed with the patient. Verbal consent was obtained. Encounter Diagnoses Name Primary? Psoriasis Yes Rash of unknown cause High risk medications (not anticoagulants) long-term use Location: r elbow Skin prep: Alcohol Anesthesia: 1% lidocaine with epinephrine Hemostasis: Aluminum chloride Dressing and wound care discussed. Specimen(s) placed in a patient labeled container and sent to [facility]. Patient agrees to phone call for results and message if not available. Will Carter MD Dermatology Resident, PGY-4 Inna Trammell MD PROCEDURE/MINOR SURG ICAL ORDERABLES * DERMATOPATHOLOGY (08/20/2023 3:33 AM CIVIL ENGINEER'S AIDE) Only the most recent of3 resultswithin the time period is included. Case Report Dermatopathology Report Case: [id number] Authorizing Provider: Inna Trammell MD Collected: 08/20/2023 03:33 AM Ordering Location: [facility] - Dermatology Received: 08/21/2023 06:49 AM Pathologist: Sonia Jhaveri MD Specimen: Skin, right elbow 4 5:05 PM CIVIL ENGINEER'S AIDE [facility]MATOPATH[facility]Y LAB[facility] Final Diagnosis Specimen A. SKIN, right elbow: PSORIASIS (L40.8) 4 5:05 PM [facility] Clinical History Psoriasis,Eczema, other 4 5:05 PM [facility] Gross Description Specimen A: Received is one formalin filled container labeled with the patient's name and designated right elbow. The specimen consists of a shave biopsy measuring 13x9x2 mm. Jar 0. 4 5:05 PM [facility] Microscopic Description Specimen A. SKIN, right elbow: There is psoriasiform hyperplasia of the epidermis. The suprapapillary plates are thinned and the granular layer is diminished. The horny layer contains areas of compact, confluent parakeratosis with collections of neutrophils. In the papillary dermis there are dilated, tortuous loops and a superficial perivascular lymphocytic infiltrate. Periodic acid-Analisa (PAS) stain fails to highlight fungal elements in the available sections. IL-36 demonstrates strong staining in the upper epidermis. 5:05 PM [facility] Disclaimer An external and internal positive and negative controls are appropriate for the histochemical, immunohistochemical and immunofluorescence stain(s) in this case (if any), except where stated explicitly. The performance characteristics of the stain(s) cited in this report were developed and its performance characteristic determined by the Dermatopathology Laboratory at [facility], directed by Dr. Farooq Nagy. These tests need not be, and therefore are not, approved by the [place] Food and Drug Administration. The tests are used for clinical purposes. Billing Codes Specimen Charges Stain Charges 55400 1 31723 51182 1 1 4 5:05 PM [facility] Embedded Images 4 5:05 PM [facility] Pathology/Cytolo gy TISSUE SPECIMEN FROM SKIN / Unknown 08/20/2023 3:33 AM CIVIL ENGINEER'S AIDE 08/21/2023 6:49 AM CIVIL ENGINEER'S AIDE Inna Trammell MD LAB - PATHOLOGY/CYTO LOGY ORDERABLES DERMATOPATHOLOGY LABORATORY [facility] - Department of Dermatology [address] [phone] * STREP A SCREEN (08/15/2020 3:22 PM CIVIL ENGINEER'S AIDE) Only the most recent of3 resultswithin the time period is included. Strep A Rapid POCT Negative Negative [facility] Strep A Internal Control Present [facility] Lot # [id number] [facility] Expiration Date 07/15/21 [facility] Throat ENTIRE THROAT (SURFACE REGION OF NECK) / Unknown 08/15/2020 3:22 PM CIVIL ENGINEER'S AIDE Angelo Miller DENTAL LABORATORY TECHNOLOGY TEACHER-REPAIRER [facility]IL[facility] - POINT OF CARE ORDERABLES Performing Organization Address City/[facility]/ZIP Co de Phone Number [facility] [address] [phone] * (ABNORMAL) ASO TITER (05/26/2014 12:41 PM CIVIL ENGINEER'S AIDE) Only the most recent of2 resultswithin the time period is included. Pathologist [facility] ASO 358.5(H) 0.0 - 200.0 IU/mL [facility] (VCV) Blood specimen (specimen) BLOOD SPECIMEN / Unknown 05/26/2014 12:41 PM CIVIL ENGINEER'S AIDE 05/26/2014 6:15 PM CIVIL ENGINEER'S AIDE Narrative [facility] - 05/27/2014 6:35 AM CIVIL ENGINEER'S AIDE Performed at: [address] [place] [address] [id number] [employer] Designer: Nehemias Rosas PhD, Phone: [phone] Lane Cortes MD LAB - CHEMISTRY VINICIO CHAIDEZ Performing Organization Address City/[facility]/ZIP Co de Phone Number [facility]) * (ABNORMAL) CULTURE STREP GROUP A (05/25/2014 12:00 AM CIVIL ENGINEER'S AIDE) [facility] Beta-Strep Group A Culture (A) [facility] ([facility]) Comment: Beta-hemolytic colonies, not group A Streptococcus isolated. Penicillin and ampicillin are drugs of choice for treatment of beta-hemolytic streptococcal infections. Susceptibility testing of penicillins and other beta-lactam agents approved by the FDA for treatment of beta-hemolytic streptococcal infections need not be performed routinely because nonsusceptible isolates are extremely rare in any beta-hemolytic streptococcus and have not been reported for Streptococcus pyogenes (group A). (CLSI 2011) Throat swab (specimen) 05/25/2014 05/25/2014 8:07 PM CIVIL ENGINEER'S AIDE Narrative [facility] (BEAKER) - 05/28/2014 6:26 AM CIVIL ENGINEER'S AIDE Specimen Type->Throat Swab Performed at: [address] [id number] [employer] Designer: Nehemias Rosas PhD, Phone: [phone] Lane Cortes MD LAB - MICROBIOLOGY O RDERABLES [facility] ([facility]) * ANCA SCREEN W/ REFLX MPO+PR3+TITER (05/21/2014 12:55 PM CIVIL ENGINEER'S AIDE) [facility] Myeloperoxidase Antibody <9.0 0.0 - 9.0 U/mL [facility] (BEAKER) Proteinase 3 <3.5 0.0 - 3.5 U/mL [facility] (BEAKER) C-ANCA Titer <1:20 Neg:<1:20 titer [facility] (BEAKER) p-ANCA <1:20 Neg:<1:20 titer [facility] (BEAKER) Comment: The presence of positive fluorescence exhibiting P-ANCA or C-ANCA patterns alone is not specific for the diagnosis of Liliane's Granulomatosis (WG) or microscopic polyangiitis. Decisions about treatment should not be based solely on ANCA IFA results. The International ANCA Group Consensus recommends follow up testing of positive sera with both OK-3 and MPO-ANCA enzyme immunoassays. As many as 5% serum samples are positive only by EIA. Ref. AM J Clin Pathol 1999;111:507-513. Atypical p-ANCA <1:20 Neg:<1:20 titer [facility] (BEAKER) Comment: The atypical pANCA pattern has been observed in a significant percentage of patients with ulcerative colitis, primary sclerosing cholangitis and autoimmune hepatitis. 05/21/2014 12:5 5 PM CIVIL ENGINEER'S AIDE 05/21/2014 6:24 PM CIVIL ENGINEER'S AIDE Narrative [facility] (BEAKER) - 05/27/2014 7:23 AM CIVIL ENGINEER'S AIDE Performed at: [address] [id number] [employer] Designer: Carlos Morse MD, Phone: [phone] Performed at: [address] [id number] [employer] Designer: Nehemias Rosas PhD, Phone: [phone] Micaela Navas MD LAB - CHEMISTR Y ORDERABLES Performing Organization Address [facility] Co de Phone Number [facility] ([facility]) * URINALYSIS MICROSCOPIC ONLY REFLEXED (05/21/2014 12:55 PM CIVIL ENGINEER'S AIDE) Only the most recent of5 resultswithin the time period is included. Pathologist [facility] WBC, UA 0-5 0 - 5 /hpf [facility] (BEAKER) RBC UA None seen 0 - 2 /hpf [facility] (BEAKER) Epithelial Cells (non renal) 0-10 0 - 10 /hpf [facility] (BEAKER) Bacteria UA Few None seen/Few [facility] (BEAKER) 05/21/2014 12:5 5 PM CIVIL ENGINEER'S AIDE 05/21/2014 6:24 PM CIVIL ENGINEER'S AIDE Narrative [facility] (BEAKER) - 05/27/2014 7:23 AM CIVIL ENGINEER'S AIDE Performed at: [address] [id number] [employer] Designer: Nehemias Rosas PhD, Phone: [phone] Micaela Navas MD LAB - URINALYS IS ORDERABLES Performing Organization Address [facility] Co de Phone Number [facility] (BEAKER) * URINALYSIS W/MICROSCOPIC NO CULTURE (05/21/2014 12:55 PM CIVIL ENGINEER'S AIDE) Only the most recent of4 resultswithin the time period is included. Specific Sentinel 1.008 1.005 - 1.030 [facility] (BEAKER) pH Urine 6.5 5.0 - 7.5 [facility] (BEAKER) Color UA Yellow Yellow [facility] (BEAKER) Appearance Clear Clear [facility] (BEAKER) Leukocyte Esterase Negative Negative [facility] (BEAKER) Protein UA Negative Negative/Tra ce [facility] (BEAKER) Glucose UA Negative Negative [facility] (BEAKER) Ketone UA Negative Negative [facility] (BEAKER) Occult Blood Negative Negative [facility]I (BEAKER) Bilirubin Negative Negative [facility] (BEAKER) Urobilinogen Semi-Qn 0.2 0.0 - 1.9 mg/dL [facility] (BEAKER) Nitrite UA Negative Negative [facility] (BEAKER) Microscopic Examination [facility] (BEAKER) Comment:Microscopic follows if indicated. Microscopic Examination See below: [facility] ([facility]) Comment:Microscopic was edie cated and was performed. Urine specimen (specimen) URINE SPECIMEN OBTAINED BY CLEAN CATCH PROCEDURE / Unknown 05/21/2014 12:55 PM CIVIL ENGINEER'S AIDE 05/21/2014 6:24 PM CIVIL ENGINEER'S AIDE Narrative [facility] ([facility]) - 05/27/2014 7:23 AM CIVIL ENGINEER'S AIDE Performed at: [address] [id number] [employer] Designer: Nehemias Rosas PhD, Phone: [phone] Micaela Navas MD LAB - URINALYS IS ORDERABLES [facility]) * CHROMATIN ANTIBODY (05/21/2014 12:55 PM CIVIL ENGINEER'S AIDE) Antichromatin Antibody IgG <0.2 0.0 - 0.9 AI [facility] ([facility]) Blood specimen (specimen) BLOOD SPECIMEN / Unknown 05/21/2014 12:55 PM CIVIL ENGINEER'S AIDE 05/21/2014 6:24 PM CIVIL ENGINEER'S AIDE Narrative [facility] ([facility]) - 05/27/2014 7:23 AM CIVIL ENGINEER'S AIDE Performed at: [address] [place] [address] [id number] [employer] Designer: Nehemias Rosas PhD, Phone: [phone] Micaela Navas MD LAB - SEROLOGY ORDERABLES Performing Organization Address City/[facility] Co de Phone Number [facility]) * TRAMMELL (SM) ANTIBODY NASIMA (05/21/2014 12:55 PM CIVIL ENGINEER'S AIDE) Only the most recent of2 resultswithin the time period is included. Pathologist [facility] Trammell Antibody <0.2 0.0 - 0.9 [facility]) Blood specimen (specimen) BLOOD SPECIMEN / Unknown 05/21/2014 12:55 PM CIVIL ENGINEER'S AIDE 05/21/2014 6:24 PM CIVIL ENGINEER'S AIDE Narrative [facility] - 05/27/2014 7:23 AM CIVIL ENGINEER'S AIDE Performed at: [address] [place] [address] [id number] [employer] Designer: Nehemias Rosas PhD, Phone: [phone] Micaela Navas MD LAB - CHEMISTR Y ORDERABLES Performing Organization Address [facility] Co de Phone Number [facility]) * MONONITROTOLUENE OPERATOR ANTIBODY (05/21/2014 12:55 PM CIVIL ENGINEER'S AIDE) Only the most recent of2 resultswithin the time period is included. Pathologist [facility] MONONITROTOLUENE OPERATOR Antibody 0.2 0.0 - 0.9 [facility]) Blood specimen (specimen) BLOOD SPECIMEN / Unknown 05/21/2014 12:55 PM CIVIL ENGINEER'S AIDE 05/21/2014 6:24 PM CIVIL ENGINEER'S AIDE Narrative [facility]) - 05/27/2014 7:23 AM CIVIL ENGINEER'S AIDE Performed at: [address] [place] [address] [id number] [employer] Designer: Nehemias Rosas PhD, Phone: [phone] Micaela Navas MD LAB - CHEMISTR Y ORDERABLES Performing Organization Address City/[facility] Co de Phone Number [facility]) * (ABNORMAL) C-REACTIVE PROTEIN (05/21/2014 12:55 PM CIVIL ENGINEER'S AIDE) Only the most recent of3 resultswithin the time period is included. [facility] C-Reactive Protein 7.8(H) 0.0 - 4.9 mg/L [facility]) Blood specimen (specimen) BLOOD SPECIMEN / Unknown 05/21/2014 12:55 PM CIVIL ENGINEER'S AIDE 05/21/2014 6:24 PM CIVIL ENGINEER'S AIDE Narrative [facility] ([facility]) - 05/27/2014 7:23 AM CIVIL ENGINEER'S AIDE Performed at: [address] [place] [address] [id number] [employer] Designer: Nehemias Rosas PhD, Phone: [phone] Micaela Navas MD LAB - CHEMISTR Y ORDERABLES Performing Organization Address [facility] Co de Phone Number [facility]) * IGOR BLOOD SCREEN W/REFLEX TITER (05/21/2014 12:55 PM CIVIL ENGINEER'S AIDE) Only the most recent of2 resultswithin the time period is included. [facility] IGOR IFA Negative [facility]) Comment: Negative <1:80 Borderline 1:80 Positive >1:80 Blood specimen (specimen) BLOOD SPECIMEN / Unknown 05/21/2014 12:55 PM CIVIL ENGINEER'S AIDE 05/21/2014 6:24 PM CIVIL ENGINEER'S AIDE Narrative [facility]) - 05/27/2014 7:23 AM CIVIL ENGINEER'S AIDE Performed at: [address] [place] [address] [id number] [employer] Designer: Nehemias Rosas PhD, Phone: [phone] Micaela Navas MD LAB - CHEMISTR Y ORDERABLES Performing Organization Address City/[facility]/ZIP Co de Phone Number [facility]) * SS-A/SS-B (SJOGRENS) ANTIBODY PANEL (05/21/2014 12:55 PM CIVIL ENGINEER'S AIDE) Only the most recent of2 resultswithin the time period is included. [facility] Sjogren's Antibodies (SSA) <0.2 0.0 - 0.9 AI [facility]) Sjogren's Antibodies (SSB) <0.2 0.0 - 0.9 AI [facility] ([facility]) 05/21/2014 12:5 5 PM CIVIL ENGINEER'S AIDE 05/21/2014 6:24 PM CIVIL ENGINEER'S AIDE Narrative [facility] ([facility]) - 05/27/2014 7:23 AM CIVIL ENGINEER'S AIDE Performed at: - [address] [id number] [employer] Designer: Nehemias Rosas PhD, Phone: [phone] Micaela Navas MD LAB - CHEMISTR Y ORDERABLES Performing Organization Address City/[facility] Co de Phone Number [facility] ([facility]) * HISTONE ANTIBODY (05/21/2014 12:55 PM CIVIL ENGINEER'S AIDE) Only the most recent of2 resultswithin the time period is included. Pathologist [facility] Histone Antibody 0.3 0.0 - 0.9 Units [facility] ([facility]) Comment: Negative <1.0 Weak Positive 1.0 - 1.5 Moderate Positive 1.6 - 2.5 Strong Positive >2.5 Blood specimen (specimen) BLOOD SPECIMEN / Unknown 05/21/2014 12:55 PM CIVIL ENGINEER'S AIDE 05/21/2014 6:24 PM CIVIL ENGINEER'S AIDE Narrative [facility] ([facility]) - 05/27/2014 7:23 AM CIVIL ENGINEER'S AIDE Performed at: - [address] [id number] [employer] Designer: Carlos Morse MD, Phone: [phone] Micaela Navas MD LAB - CHEMISTR Y ORDERABLES Performing Organization Address City/[facility] Co de Phone Number [facility] ([facility]) * (ABNORMAL) COMPLEMENT TOTAL (05/21/2014 12:55 PM CIVIL ENGINEER'S AIDE) Only the most recent of2 resultswithin the time period is included. Pathologist [facility] Complement Total CH50 61(H) 22 - 60 U/mL [facility] ([facility]) Blood specimen (specimen) BLOOD SPECIMEN / Unknown 05/21/2014 12:55 PM CIVIL ENGINEER'S AIDE 05/21/2014 6:24 PM CIVIL ENGINEER'S AIDE Narrative [facility] ([facility]) - 05/27/2014 7:23 AM CIVIL ENGINEER'S AIDE Performed at: [address] [place] [address] [id number] [employer] Designer: Nehemias Rosas PhD, Phone: [phone] Micaela Navas MD LAB - CHEMISTR Y ORDERABLES Performing Organization Address [facility] Co de Phone Number [facility] ([facility]) * SCLERODERMA 70 (SCL) ANTIBODY (05/21/2014 12:55 PM CIVIL ENGINEER'S AIDE) Only the most recent of2 resultswithin the time period is included. Antiscleroderma -70 Antibody <0.2 0.0 - 0.9 AI [facility] ([facility]) Blood specimen (specimen) BLOOD SPECIMEN / Unknown 05/21/2014 12:55 PM CIVIL ENGINEER'S AIDE 05/21/2014 6:24 PM CIVIL ENGINEER'S AIDE Narrative [facility] ([facility]) - 05/27/2014 7:23 AM CIVIL ENGINEER'S AIDE Performed at: [address] [place] [address] [id number] [employer] Designer: Nehemias Rosas PhD, Phone: [phone] Micaela Navas MD LAB - CHEMISTR Y ORDERABLES Performing Organization Address [facility] de Phone Number [facility] ([facility]) * DNA ANTIBODY DOUBLE STRANDED (05/21/2014 12:55 PM CIVIL ENGINEER'S AIDE) dsDNA Antibody <1 0 - 9 IU/mL [facility] ([facility]) Comment: Negative <5 Equivocal 5 - 9 Positive >9 Blood specimen (specimen) BLOOD SPECIMEN / Unknown 05/21/2014 12:55 PM CIVIL ENGINEER'S AIDE 05/21/2014 6:24 PM CIVIL ENGINEER'S AIDE Narrative [facility]) - 05/27/2014 7:23 AM CIVIL ENGINEER'S AIDE Performed at: [address] [place] [address] [id number] [employer] Designer: Nehemias Rosas PhD, Phone: [phone] Micaela Navas MD LAB - HEMATOLO GY ORDERABLES Performing Organization Address City/[facility]/ZIP Co de Phone Number [facility] (BEAKER) * ERYTHROCYTE SEDIMENTATION RATE (05/21/2014 12:55 PM CIVIL ENGINEER'S AIDE) Only the most recent of3 resultswithin the time period is included. Erythrocyte Sedimentation Rate Westergren 5 0 - 32 mm/hr [facility] (BEAKER) Blood specimen (specimen) BLOOD SPECIMEN / Unknown 05/21/2014 12:55 PM CIVIL ENGINEER'S AIDE 05/21/2014 6:24 PM CIVIL ENGINEER'S AIDE Narrative [facility] (BEAKER) - 05/27/2014 7:23 AM CIVIL ENGINEER'S AIDE Performed at: [address] [place] [address] [id number] [employer] Designer: Nehemias Rosas PhD, Phone: [phone] Micaela Navas MD LAB - HEMATOLO GY ORDERABLES Performing Organization Address City/[facility]/ZIP Co de Phone Number [facility] (BEAKER) * CBC W/O DIFFERENTIAL (05/21/2014 12:55 PM CIVIL ENGINEER'S AIDE) Only the most recent of2 resultswithin the time period is included. Pathologist [facility] WBC 7.8 3.4 - 10.8 x10E3/uL [facility] (BEAKER) RBC 4.31 3.77 - 5.28 x10E6/uL [facility] (BEAKER) Hemoglobin 13.5 11.1 - 15.9 g/dL [facility] (BEAKER) Hematocrit 40.2 34.0 - 46.6 % [facility] (BEAKER) MCV 93 79 - 97 fL [facility] (BEAKER) MCH 31.3 26.6 - 33.0 pg [facility] (BEAKER) MCHC 33.6 31.5 - 35.7 g/dL [facility] (BEAKER) RDW-CV 12.9 12.3 - 15.4 % [facility] (BEAKER) Platelet 351 150 - 379 x10E3/uL [facility] (BEAKER) Blood specimen (specimen) BLOOD SPECIMEN / Unknown 05/21/2014 12:55 PM CIVIL ENGINEER'S AIDE 05/21/2014 6:24 PM CIVIL ENGINEER'S AIDE Narrative [facility]) - 05/27/2014 7:23 AM CIVIL ENGINEER'S AIDE Performed at: [address] [place] [address] [id number] [employer] Designer: Nehemias Rosas PhD, Phone: [phone] Micaela Navas MD LAB - HEMATOLO GY ORDERABLES Performing Organization Address City/[facility]/ZIP Co de Phone Number [facility] ([facility]) * (ABNORMAL) COMPLEMENT C4 (05/21/2014 12:55 PM CIVIL ENGINEER'S AIDE) Only the most recent of2 resultswithin the time period is included. Complement C4 55(H) 9 - 36 mg/dL Adult [facility] ([facility]) Blood specimen (specimen) BLOOD SPECIMEN / Unknown 05/21/2014 12:55 PM CIVIL ENGINEER'S AIDE 05/21/2014 6:24 PM CIVIL ENGINEER'S AIDE Narrative [facility] ([facility]) - 05/27/2014 7:23 AM CIVIL ENGINEER'S AIDE Performed at: [address] [place] [address] [id number] [employer] Designer: Nehemias Rosas PhD, Phone: [phone] Micaela Navas MD LAB - SEROLOGY ORDERABLES Performing Organization Address City/[facility]/ZIP Co de Phone Number [facility] ([facility]) * (ABNORMAL) COMPREHENSIVE METABOLIC PANEL (05/21/2014 12:55 PM CIVIL ENGINEER'S AIDE) Only the most recent of15 resultswithin the time period is included. Glucose 79 65 - 99 mg/dL [facility] ([facility]) BUN 9 6 - 24 mg/dL [facility] ([facility]) Creatinine 0.58 0.57 - 1.00 mg/dL [facility] ([facility]) eGFR non- 113 >59 mL/min/1.7 3 [facility] ([facility]) eGFR 131 >59 mL/min/1.7 3 [facility] (BEAKER) BUN/Creatinine Ratio 16 9 - 23 [facility] (BEAKER) Sodium 139 134 - 144 mmol/L [facility] (BEAKER) Potassium 4.3 3.5 - 5.2 mmol/L [facility] (BEAKER) Chloride 96(L) 97 - 108 mmol/L [facility] (BEAKER) CO2 23 18 - 29 mmol/L [facility] (BEAKER) Calcium 9.3 8.7 - 10.2 mg/dL [facility] (BEAKER) Protein Total 7.3 6.0 - 8.5 g/dL [facility] (BEAKER) Albumin 4.5 3.5 - 5.5 g/dL [facility] (BEAKER) Globulin Total 2.8 1.5 - 4.5 g/dL [facility] (BEAKER) Albumin/Globulin Ratio 1.6 1.1 - 2.5 [facility] (BEAKER) Bilirubin Total 0.4 0.0 - 1.2 mg/dL [facility] (BEAKER) Alkaline Phosphatase 63 39 - 117 IU/L [facility] (BEAKER) AST 13 0 - 40 IU/L [facility] (BEAKER) ALT 12 0 - 32 IU/L [facility] (BEAKER) Blood specimen (specimen) BLOOD SPECIMEN / Unknown 05/21/2014 12:55 PM CIVIL ENGINEER'S AIDE 05/21/2014 6:24 PM CIVIL ENGINEER'S AIDE Narrative [facility] (BEAKER) - 05/27/2014 7:23 AM CIVIL ENGINEER'S AIDE Performed at: [address] [place] [address] [id number] [employer] Designer: Nehemias Rosas PhD, Phone: [phone] Micaela Navas MD LAB - CHEMISTR Y ORDERABLES [facility] (BEAKER) * COMPLEMENT C3 (05/21/2014 12:55 PM CIVIL ENGINEER'S AIDE) Only the most recent of2 resultswithin the time period is included. Complement C3 153 90 - 180 mg/dL Adult [facility] ([facility]) Blood specimen (specimen) BLOOD SPECIMEN / Unknown 05/21/2014 12:55 PM CIVIL ENGINEER'S AIDE 05/21/2014 6:24 PM CIVIL ENGINEER'S AIDE Narrative [facility] ([facility]) - 05/27/2014 7:23 AM CIVIL ENGINEER'S AIDE Performed at: - [address] [id number] [employer] Designer: Nehemias Rosas PhD, Phone: [phone] Micaela Navas MD LAB - CHEMISTR Y ORDERABLES Performing Organization Address City/[facility]/ZIP Co de Phone Number [facility] ([facility]) * LAB HISTORICAL RESULTS-ONBASE (06/23/2013) Only the most recent of2 resultswithin the time period is included. 06/23/2013 Narrative [facility] - 06/27/2013 9:52 AM CIVIL ENGINEER'S AIDE Historical Provider LAB - CHEMISTRY O RDERABLES Performing Organization Address [facility]/ZIP Co de Phone Number [facility] [address] * CRYOGLOBULIN SCREEN W/REFLEX CRYOGLOBULIN PROFILE (05/26/2013 10:49 AM CIVIL ENGINEER'S AIDE) Cryoglobulin Qualitative Reflex None detected [facility] ([facility]) Comment:None Detected at 72 hours 05/26/2013 10:4 9 AM CIVIL ENGINEER'S AIDE 05/26/2013 2:02 PM CIVIL ENGINEER'S AIDE Narrative [facility] ([facility]) - 05/30/2013 3:16 PM CIVIL ENGINEER'S AIDE Performed at: - [address] [id number] [employer] Designer: Brayden Garcia MD, Phone: [phone] Micaela Navas MD LAB - COAGULAT ION ORDERABLES Performing Organization Address City/[facility] Co de Phone Number [facility] ([facility]) * BETA-2 GLYCOPROTEIN 1 ANTIBODY IGG (05/26/2013 10:49 AM CIVIL ENGINEER'S AIDE) Beta-2 Glycoprotein 1 Antibody 1 IgG <9 0 - 20 GPI IgG units [facility] ([facility]) Comment: The reference interval reflects a 3SD or 99th percentile interval, which is thought to represent a potentially clinically significant result in accordance with the International Consensus Statement on the classification criteria for definitive antiphospholipid syndrome (APS). J Thromb Haem 2006;4:295-306. 05/26/2013 10:4 9 AM CIVIL ENGINEER'S AIDE 05/26/2013 2:02 PM CIVIL ENGINEER'S AIDE Narrative [facility] ([facility]) - 05/29/2013 3:19 PM CIVIL ENGINEER'S AIDE Performed at: - [address] [id number] [employer] Designer: Carlos Morse MD, Phone: [phone] Micaela Navas MD LAB - SEROLOGY ORDERABLES Performing Organization Address [facility] de Phone Number [facility] ([facility]) * BETA-2 GLYCOPROTEIN 1 ANTIBODY IGM (05/26/2013 10:49 AM CIVIL ENGINEER'S AIDE) Beta-2 Glycoprotein 1 Antibody IgM <9 0 - 32 GPI IgM units [facility] ([facility]) Comment: The reference interval reflects a 3SD or 99th percentile interval, which is thought to represent a potentially clinically significant result in accordance with the International Consensus Statement on the classification criteria for definitive antiphospholipid syndrome (APS). J Thromb Haem 2006;4:295-306. 05/26/2013 10:4 9 AM CIVIL ENGINEER'S AIDE 05/26/2013 2:02 PM CIVIL ENGINEER'S AIDE Narrative [facility] ([facility]) - 05/29/2013 3:19 PM CIVIL ENGINEER'S AIDE Performed at: [address] [id number] [employer] Designer: Carlos Morse MD, Phone: [phone] Micaela Navas MD LAB - SEROLOGY ORDERABLES Performing Organization Address [facility] Co de Phone Number [facility] ([facility]) * CARDIOLIPIN ANTIBODY IGA (05/26/2013 10:49 AM CIVIL ENGINEER'S AIDE) Anticardiolipin Antibody IgA Quantitative <9 0 - 11 APL U/mL [facility] ([facility]) Comment: Negative: <12 Indeterminate: 12 - 20 Low-Med Positive: >20 - 80 High Positive: >80 05/26/2013 10:4 9 AM CIVIL ENGINEER'S AIDE 05/26/2013 2:02 PM CIVIL ENGINEER'S AIDE Narrative [facility] ([facility]) - 05/29/2013 3:19 PM CIVIL ENGINEER'S AIDE Performed at: [address] [place] [address] [employer] Designer: Brayden Garcia MD, Phone: [phone] Micaela Navas MD LAB - SEROLOGY ORDERABLES Performing Organization Address [facility] Co de Phone Number [facility] ([facility]) * CARDIOLIPIN ANTIBODY IGM (05/26/2013 10:49 AM CIVIL ENGINEER'S AIDE) Anticardiolipin Antibody IgM Quantitative <9 0 - 12 MPL U/mL [facility] ([facility]) Comment: Negative: <13 Indeterminate: 13 - 20 Low-Med Positive: >20 - 80 High Positive: >80 05/26/2013 10:4 9 AM CIVIL ENGINEER'S AIDE 05/26/2013 2:02 PM CIVIL ENGINEER'S AIDE Narrative [facility] ([facility]) - 05/29/2013 3:19 PM CIVIL ENGINEER'S AIDE Performed at: [address] [place] [id number] [employer] Designer: Brayden Garcia MD, Phone: [phone] Micaela Navas MD LAB - SEROLOGY ORDERABLES Performing Organization Address City/[facility] Co de Phone Number [facility] ([facility]) * CARDIOLIPIN ANTIBODY IGG (05/26/2013 10:49 AM CIVIL ENGINEER'S AIDE) Anticardiolipin Antibody IgG Quantitative <9 0 - 14 GPL U/mL [facility] ([facility]) Comment: Negative: <15 Indeterminate: 15 - 20 Low-Med Positive: >20 - 80 High Positive: >80 05/26/2013 10:4 9 AM CIVIL ENGINEER'S AIDE 05/26/2013 2:02 PM CIVIL ENGINEER'S AIDE Narrative [facility] (BEAKER) - 05/29/2013 3:19 PM CIVIL ENGINEER'S AIDE Performed at: [address] [id number] [employer] Solar [employer] Designer: Brayden Garcia MD, Phone: [phone] Micaela Navas MD LAB - SEROLOGY ORDERABLES Performing Organization Address City/[facility] Co de Phone Number [facility] ([facility]) * LUPUS ANTICOAGULANT PANEL W RFLX (05/26/2013 10:49 AM CIVIL ENGINEER'S AIDE) Pathologist [facility] PTT Lupus Anticoagulant 38.5 0.0 - 50.0 sec [facility] ([facility]) dRVVT Baseline 37.9 0.0 - 55.1 sec [facility] ([facility]) Interpretation Comment: [facility] ([facility]) Comment:No lupus anticoagula nt was detected. Plasma specimen (specimen) 05/26/2013 10:49 AM CIVIL ENGINEER'S AIDE 05/26/2013 2:02 PM CIVIL ENGINEER'S AIDE Narrative [facility] (BEAKER) - 05/29/2013 3:19 PM CIVIL ENGINEER'S AIDE Performed at: [address] [place] [id number] [employer] Solar [employer] Designer: Carlos Morse MD, Phone: [phone] Micaela Navas MD LAB - HEMATOLO GY ORDERABLES Performing Organization Address City/[facility]/ZIP Co de Phone Number [facility] ([facility]) * RHEUMATOID FACTOR BLOOD QUANTITATIVE (05/26/2013 10:49 AM CIVIL ENGINEER'S AIDE) Pathologist [facility] RA latex Turbidimetry 10.1 0.0 - 13.9 IU/mL [facility] ([facility]) Venous blood specimen (specimen) 05/26/2013 10:49 AM CIVIL ENGINEER'S AIDE 05/26/2013 2:02 PM CIVIL ENGINEER'S AIDE Narrative [facility] (BEAKER) - 05/29/2013 3:19 PM CIVIL ENGINEER'S AIDE Performed at: [address] [id number] [employer] Solar [employer] Designer: Brayden Garcia MD, Phone: [phone] Micaela Navas MD LAB - CHEMISTR Y ORDERABLES Performing Organization Address [facility] Co de Phone Number [facility]) * HLA TYPING B27 (05/26/2013 10:49 AM CIVIL ENGINEER'S AIDE) HLA-B27 Negative [facility] ([facility]) Comment: HLA-B*27 Negative This test was performed using PCR (Polymerase Chain Reaction)/SSOP (Sequence Specific Oligonucleotide Probes) technique. SBT (Sequence Based Typing) and/or SSP (Sequence Specific Primers) may be used as supplemental methods when necessary. Please contact HLA Customer Service at if you have any questions. Director of HLA Laboratory Dr Dewayne Jolly, PhD 05/26/2013 10:4 9 AM CIVIL ENGINEER'S AIDE 05/26/2013 2:02 PM CIVIL ENGINEER'S AIDE Narrative [facility]) - 05/29/2013 3:19 PM CIVIL ENGINEER'S AIDE Performed at: [address] [place] [id number] [employer] Solar [employer] Designer: Dewayne Jolly PhD, Phone: [phone] Micaela Navas MD LAB - CHEMISTR Y ORDERABLES Performing Organization Address [facility] de Phone Number [facility]) * NEUTROPHIL CYTOPLASMIC ANTIBODY (05/26/2013 10:49 AM CIVIL ENGINEER'S AIDE) C-ANCA Titer <1:20 Neg:<1:20 titer [facility] ([facility]) p-ANCA <1:20 Neg:<1:20 titer [facility] ([facility]) Comment: The presence of positive fluorescence exhibiting P-ANCA or C-ANCA patterns alone is not specific for the diagnosis of Liliane's Granulomatosis (WG) or microscopic polyangiitis. Decisions about treatment should not be based solely on ANCA IFA results. The [employer] ANCA [employer] Consensus recommends follow up testing of positive sera with both OK-3 and MPO-ANCA enzyme immunoassays. As many as 5% serum samples are positive only by EIA. Ref. AM J Clin Pathol 1999;111:507-513. Atypical p-ANCA <1:20 Neg:<1:20 titer [facility] ([facility]) Comment: The atypical pANCA pattern has been observed in a significant percentage of patients with ulcerative colitis, primary sclerosing cholangitis and autoimmune hepatitis. Venous blood specimen (specimen) 05/26/2013 10:49 AM CIVIL ENGINEER'S AIDE 05/26/2013 2:02 PM CIVIL ENGINEER'S AIDE Narrative [facility] ([facility]) - 05/29/2013 3:19 PM CIVIL ENGINEER'S AIDE Performed at: [address] [id number] [employer] Solar [employer] Designer: Brayden Garcia MD, Phone: [phone] Micaela Navas MD LAB - CHEMISTR Y ORDERABLES Performing Organization Address [facility] de Phone Number [facility] ([facility]) * PROTEINASE 3 (05/26/2013 10:49 AM CIVIL ENGINEER'S AIDE) Proteinase 3 <3.5 0.0 - 3.5 U/mL [facility] ([facility]) 05/26/2013 10:4 9 AM CIVIL ENGINEER'S AIDE 05/26/2013 2:02 PM CIVIL ENGINEER'S AIDE Narrative [facility] amSTATZTU[facility]) - 05/29/2013 3:19 PM CIVIL ENGINEER'S AIDE Performed at: [address] [id number] [employer] Designer: Carlos Morse MD, Phone: [phone] Micaela Navas MD LAB - CHEMISTR Y ORDERABLES Performing Organization Address [facility] Co de Phone Number [facility] ([facility]) * CYCLIC CITRUL PEPTIDE AB IGG (CCP) (05/26/2013 10:49 AM CIVIL ENGINEER'S AIDE) Cyclic Citrullinated Peptide Antibody 5 0 - 19 units [facility] ([facility]) Comment: Negative <20 Weak positive 20 - 39 Moderate positive 40 - 59 Strong positive >59 05/26/2013 10:4 9 AM CIVIL ENGINEER'S AIDE 05/26/2013 2:02 PM CIVIL ENGINEER'S AIDE Narrative [facility] ([facility]) - 05/29/2013 3:19 PM CIVIL ENGINEER'S AIDE Performed at: - [address] [id number] [employer] Solar [employer] Designer: Carlos Morse MD, Phone: [phone] Micaela Navas MD LAB - CHEMISTR Y ORDERABLES [facility] ([facility]) * HEPATITIS B SURFACE ANTIGEN W RFLX CONFIRMATION (05/26/2013 10:49 AM CIVIL ENGINEER'S AIDE) [facility] Hepatitis B Virus Surface Antigen Screen Negative Negative [facility] ([facility]) Venous blood specimen (specimen) 05/26/2013 10:49 AM CIVIL ENGINEER'S AIDE 05/26/2013 2:02 PM CIVIL ENGINEER'S AIDE Narrative [facility] ([facility]) - 05/29/2013 3:19 PM CIVIL ENGINEER'S AIDE Performed at: [address] [place] [id number] [employer] Solar [employer] Designer: Brayden Garcia MD, Phone: [phone] Micaela Navas MD LAB - CHEMISTR Y ORDERABLES Performing Organization Address [facility] Co de Phone Number [facility] ([facility]) * CK BLOOD (05/26/2013 10:49 AM CIVIL ENGINEER'S AIDE) [facility] CK Total 81 24 - 173 U/L [facility]) Serum 05/26/2013 10:4 9 AM CIVIL ENGINEER'S AIDE 05/26/2013 2:02 PM CIVIL ENGINEER'S AIDE Narrative [facility] ([facility]) - 05/29/2013 3:19 PM CIVIL ENGINEER'S AIDE Performed at: [address] [place] [id number] [employer] Solar [employer] Designer: Brayden Garcia MD, Phone: [phone] Micaela Navas MD LAB - CHEMISTR Y ORDERABLES Performing Organization Address City/[facility]/ZIP Co de Phone Number [facility] ([facility]) * TSH (05/26/2013 10:49 AM CIVIL ENGINEER'S AIDE) [facility] TSH 1.300 0.450 - 4.500 uIU/mL [facility] (BEAKER) Venous blood specimen (specimen) 05/26/2013 10:49 AM CIVIL ENGINEER'S AIDE 05/26/2013 2:02 PM CIVIL ENGINEER'S AIDE Narrative [facility] (BEAKER) - 05/29/2013 3:19 PM CIVIL ENGINEER'S AIDE Performed at: [address] [place] [address] [id number] [employer] Designer: Brayden Garcia MD, Phone: [phone] Micaela Navas MD LAB - CHEMISTR Y ORDERABLES Performing Organization Address City/[facility] Co de Phone Number [facility] (BEAKER) * T4 FREE (05/26/2013 10:49 AM CIVIL ENGINEER'S AIDE) T4 Free 1.11 0.82 - 1.77 ng/dL [facility] (BEAKER) Venous blood specimen (specimen) 05/26/2013 10:49 AM CIVIL ENGINEER'S AIDE 05/26/2013 2:02 PM CIVIL ENGINEER'S AIDE Narrative [facility] (BEAKER) - 05/29/2013 3:19 PM CIVIL ENGINEER'S AIDE Performed at: [address] [place] [id number] [employer] Designer: Brayden Garcia MD, Phone: [phone] Micaela Navas MD LAB - CHEMISTR Y ORDERABLES Performing Organization Address City/[facility] Co de Phone Number [facility] (BEAKER) * (ABNORMAL) CBC W AUTO DIFFERENTIAL (04/11/2013 8:02 AM CDT) Only the most recent of13 resultswithin the time period is included. WBC 6.7 3.4 - 10.8 x10E3/uL [facility] (BEAKER) RBC 4.28 3.77 - 5.28 x10E6/uL [facility] (BEAKER) Hemoglobin 14.2 11.1 - 15.9 g/dL [facility] (BEAKER) Hematocrit 42.8 34.0 - 46.6 % [facility] (BEAKER) MCV 100(H) 79 - 97 fL [facility] (BEAKER) MCH 33.2(H) 26.6 - 33.0 pg [facility] (BEAKER) MCHC 33.2 31.5 - 35.7 g/dL [facility] (BEAKER) RDW 12.9 12.3 - 15.4 % [facility] (BEAKER) Platelet 367 155 - 379 x10E3/uL [facility] (BEAKER) Neutrophils % 56 40 - 74 % [facility] ([facility]) Lymphocytes % 29 14 - 46 % [facility] (BEAKER) Monocytes % 11 4 - 12 % [facility] (BEAK[facility]) Eosinophils % 3 0 - 5 % [facility] (BEAKER) Basophils % 1 0 - 3 % [facility] (BEAKER) Neutrophils Absolute 3.8 1.4 - 7.0 x10E3/uL [facility] (BEAKER) Lymphocyte Absolute 2.0 0.7 - 3.1 x10E3/uL [facility] (BEAKER) Monocytes Absolute 0.7 0.1 - 0.9 x10E3/uL [facility] (BEAKER) Eosinophils Absolute 0.2 0.0 - 0.4 x10E3/uL [facility] (BEAKER) Basophils Absolute 0.1 0.0 - 0.2 x10E3/uL [facility] (BEAKER) Immature Granulocytes % 0 0 - 2 % [facility] (BEAKER) Immature Granulocytes absolute 0.0 0.0 - 0.1 x10E3/uL [facility] (BEAKER) Venous blood specimen (specimen) 04/11/2013 8:02 AM CDT 04/11/2013 12:41 PM CDT Narrative [facility] (BEAKER) - 04/12/2013 7:26 AM CDT Performed at: [address] [facility] [address] [id number] [employer] Solar [employer] Designer: Nehemias Rosas PhD, Phone: [phone] Lane Cortes MD LAB - HEMATOLOGY ORD ERABLES [facility] (BEAKER) * MRI FOOT LEFT WO CONTRAST (02/26/2013 7:28 AM CDT) Anatomical Region Laterality Modality Other Impressions 02/28/2013 3:08 PM CDT IMPRESSION: 1. No evidence of osteomyelitis at the bunionectomy/osteotomy site. I, Dr. CECI POWELL M.D. have personally reviewed and interpreted this examination/study. This report was electronically signed by CECI POWELL M.D. on 02/28/2013 3:08 PM . Narrative 02/28/2013 3:08 PM CDT MR LEFT FOREFOOT WITHOUT CONTRAST CLINICAL: 42-year-old female with swelling after bunionectomy June 2012 TECHNIQUE: Multiple fluid sensitive and fat sensitive sequences were obtained of the left forefoot in all 3 orthogonal planes without gadolinium. Comparison: No prior studies available for comparison. FINDINGS: The appearance of fracture through the first metatarsal neck is presumed an osteotomy related to bunionectomy. There is no marrow edema on either side of the osteotomy or elsewhere in the forefoot to suggest osteomyelitis. Mild degenerative change is seen at the second tarsometatarsal joint. Otherwise bone marrow signal is normal. There no fluid collection. Soft tissue edema is seen beneath the second metatarsophalangeal joint. Edema is seen between the bases of the first and second metatarsals. Normal flexor and extensor tendons, without tenosynovitis or tear. Normal visualized distal plantar fascia without fasciitis, fibromatosis or tear. Normal signal intensity of the intrinsic muscles of the forefoot without soft tissue mass or denervation atrophy. Procedure Note Ceci Powell MD - 10/14/2017 MR LEFT FOREFOOT WITHOUT CONTRAST CLINICAL: 42-year-old female with swelling after bunionectomy June2012 TECHNIQUE: Multiple fluid sensitive and fat sensitive sequences wereobtained of the left forefoot in all 3 orthogonal planes withoutgadolinium. Comparison: No prior studies available for comparison. FINDINGS: The appearance of fracture through the first metatarsal neck is presumedan osteotomy related to bunionectomy. There is no marrow edema on eitherside of the osteotomy or elsewhere in the forefoot to suggestosteomyelitis. Mild degenerative change is seen at the second tarsometatarsal joint. Otherwise bone marrow signal isnormal. There no fluid collection. Soft tissue edema is seen beneath the secondmetatarsophalangeal joint. Edema is seen between the bases of the firstand second metatarsals. Normal flexor and extensor tendons, without tenosynovitis or tear. Normal visualized distal plantar fascia without fasciitis, fibromatosis ortear. Normal signal intensity of the intrinsic muscles of the forefoot withoutsoft tissue mass or denervation atrophy. IMPRESSION IMPRESSION: 1. No evidence of osteomyelitis at the bunionectomy/osteotomy site. I, Dr. CECI POWELL M.D. have personally reviewed and interpreted thisexamination/study. This report was electronically signed by CECI POWELL M.D. on 02/28/20133:08 PM . Irasema Lawson MD MR ORDERABLES * REF LAB-NO MICRO URINE RECEIVED (02/04/2013 12:00 AM CDT) [facility] ([facility]) Comment: No specimen received. TEST #[id number] URINE CULTURE SPECIMEN RECEIVED: URINALYSIS TUBE 02/04/2013 02/04/2013 6:2 4 PM CDT Narrative [facility] ([facility]) - 02/05/2013 4:21 PM CDT Performed at: [address] [place] [id number] [employer] Solar [employer] Designer: Nehemias Rosas PhD, Phone: [phone] Irasema Lawson MD LAB - MICROBI OLOGY ORDERABLES [facility] ([facility]) * (ABNORMAL) CULTURE AEROBIC (12/02/2012 12:00 AM CDT) Only the most recent of3 resultswithin the time period is included. Aerobic Bacterial Culture Final report(A) [facility] ([facility]) Result 1 (A) [facility] ([facility]) Comment: Methicillin - resistant Staphylococcus aureus Moderate growth Based on resistance to oxacillin this isolate would be resistant to all currently available beta-lactam antimicrobial agents, with the exception of the newer cephalosporins with anti-MRSA activity, such as Ceftaroline Antimicrobial Susceptibility [facility] ([facility]) Comment: S = Susceptible; I = Intermediate; R = Resistant P = Positive; N = Negative MICS are expressed in micrograms per mL Antibiotic RSLT#1 RSLT#2 RSLT#3 RSLT#4 Ciprofloxacin R>=8 Clindamycin R>=8 Erythromycin R>=8 Gentamicin S<=0.5 Levofloxacin R>=8 Linezolid S =2 Oxacillin R>=4 Penicillin R>=0.5 Rifampin S<=0.5 Tetracycline S<=1 Trimethoprim/Sulfa R>=320 Vancomycin S =1 Skin (tissue) specimen (specimen) (Leg, Right) 12/02/2012 12/02/2012 8:25 PM CDT Narrative [facility] ([facility]) - 12/06/2012 11:20 AM CDT Right leg Specimen Type->Skin Performed at: [address] [place] [id number] [employer] Solar Cell Designer: Nehemias Rosas PhD, Phone: [phone] Lane Cortes MD LAB - MICROBIOLOGY O RDERABLES [facility]) * GRAM STAIN SMEAR (12/02/2012 12:00 AM CDT) Gram Stain Result Final report [facility]) Result 1 [facility] ([facility]) Comment:No white blood cells seen. Result 2 [facility] ([facility]) Comment:Moderate number of g penelope positive cocci. Result 3 [facility] ([facility]) Comment:Few gram negative ro ds. 12/02/2012 12/02/2012 8:2 5 PM CDT Narrative [facility] ([facility]) - 12/06/2012 11:20 AM CDT Performed at: [address] [place] [address] [id number] [employer] Solar Cell Designer: Nehemias Rosas PhD, Phone: [phone] Lane Cortes MD LAB - MICROBIOLOGY O JOHN Performing Organization Address City/[facility]/ZIP Co de Phone Number [facility] ([facility]) * CULTURE ANAEROBE (12/02/2012 12:00 AM CDT) Only the most recent of2 resultswithin the time period is included. Anaerobic Culture Final report [facility] ([facility]) Result 1 [facility] ([facility]) Comment:No anaerobic growth in 72 hours. 12/02/2012 12/02/2012 8:2 5 PM CDT Narrative [facility] ([facility]) - 12/06/2012 11:20 AM CDT Performed at: [address] [place] [address] [id number] [employer] Designer: Nehemias Rosas PhD, Phone: [phone] Lane Cortes MD LAB - MICROBIOLOGY O JOHN Performing Organization Address [facility]/ZIP Co de Phone Number [facility] ([facility]) * REF LAB-SPECIMEN STATUS REPORT (10/21/2012 12:00 AM CDT) Specimen Status [facility] ([facility]) Comment: Tracking Missed Test Written Authorization Written Authorization Written Authorization Received. Authorization received from PER ORIGINAL REQUISITION 10-22-2012 Logged by Giuliana Nesbitt 10/21/2012 10/22/2012 1:3 3 PM CDT Narrative [facility] ([facility]) - 10/27/2012 3:07 PM CDT Performed at: [address] [place] [address] [id number] [employer] Designer: Nehemias Rosas PhD, Phone: [phone] Lane Cortes MD LAB - CHEMISTRY VINICIO CHAIDEZ Performing Organization Address City/[facility]/ZIP Co de Phone Number [facility] ([facility]) * CULTURE FUNGUS SKIN HAIR NAILS (10/21/2012 12:00 AM CDT) Culture Dermatophyte Only [facility] (BEAKER) Comment:No dermatophytes rec overed. 10/21/2012 10/21/2012 8:5 9 PM CDT Narrative [facility] (BEAKER) - 11/13/2012 6:23 AM CDT Performed at: [address] [place] [address] [id number] [employer] Solar [employer] Designer: Nehemias Rosas PhD, Phone: [phone] Lane Cortes MD LAB - MICROBIOLOGY O RDERABLES Performing Organization Address [facility]/ZIP Co de Phone Number [facility] ([facility]) * IGOR W REFLEX DS-DNA+NASIMA+SSJ (10/09/2012 8:01 AM CDT) [facility] IGOR Direct Negative Negative [facility] (BEAKER) 10/09/2012 8:01 AM CDT 10/09/2012 1:03 PM CDT Narrative [facility] (BEAKER) - 10/11/2012 6:24 AM CDT Performed at: [address] [place] [address] [id number] [employer] Designer: Nehemias Rosas PhD, Phone: [phone] Lane Cortes MD LAB - SEROLOGY ORDER RUSTY Performing Organization Address [facility] Co de Phone Number [facility] ([facility]) * (ABNORMAL) URINALYSIS REFLEX TO MICROSCOPIC NO CULTURE (10/09/2012 8:01 AM CDT) Pathologist [facility] Specific Sentinel 1.027 1.005 - 1.030 [facility] (BEAKER) pH Urine 6.0 5.0 - 7.5 [facility] ([facility]) Color UA Yellow Yellow [facility] ([facility]) Appearance Clear Clear [facility] (BEAKER) Leukocyte Esterase Negative Negative [facility] (BEAK[facility]) Protein UA 1+(A) Negative/Tra ce [facility] ([facility]) Glucose UA Negative Negative [facility] (BEAK[facility]) Ketones Negative Negative [facility] ([facility]) Blood UA Negative Negative [facility] (BEAKER) Bilirubin Negative Negative [facility] (BEAKER) Urobilinogen Semi-Qn 0.2 0.0 - 1.9 mg/dL [facility] (BEAKER) Nitrite UA Negative Negative [facility] (BEAKER) Microscopic Examination See below: [facility] (BE[facility]ER) Urine specimen (specimen) (Urine, unspecified source) 10/09/2012 8:01 AM CDT 10/09/2012 1:03 PM CDT Narrative [facility] (BE[facility]ER) - 10/11/2012 6:24 AM CDT Performed at: [address] [id number] [employer] Designer: Nehemias Rosas PhD, Phone: [phone] Lane Cortes MD LAB - URINALYSIS ORD ERABLES Performing Organization Address City/[facility]/ZIP Co de Phone Number [facility] ([facility]) * G6PD QUANTITATIVE (10/09/2012 8:01 AM CDT) G-6-PD Quantitative 232 146 - 376 U/10E12 RBC [facility] (BEAKER) 10/09/2012 8:01 AM CDT 10/09/2012 1:03 PM CDT Narrative [facility] (BEAKER) - 10/11/2012 6:24 AM CDT Performed at: [address] [place] [address] [id number] [employer] Designer: Carlos Morse MD, Phone: [phone] Lane Cortes MD LAB - CHEMISTRY ORDE RABPARESH [facility] [facility] ([facility]) Care Teams Planishing Press Operator Relationship Specialty Start Date End Date Roberto Carlos Birmingham DO [address] [place] [address] PCP - General Internal Medicine 06/01/16
--- OUTSIDE RECORDS SUMMARY | 2024-09-29 16:16 | XMS_ITS | Encounter Summary ---
Author Organization [facility] Address [address] [place] [address] Care Team Providers Care Animal Handler Name Role Phone Krisskandi Roberto Carlos Maia CARMICHAEL Primary Care Provider [phone] Reason for Visit * Reason Onset Date Comments Question 09/29/2024 Encounter Details Date Type Department Care Team (Late st Contact Info) Description 09/29/2024 Telephone [facility] - Centralized Scheduling [address] [place] [address] Inna Trammell MD [facility] [place] [address] Question Social History Tobacco Use Types Packs/Day Years [...] encounter Miscellaneous Notes * Telephone Encounter - Cindy Quintana - 09/29/2024 10:40 AM CDT Patient is inquiring about a referral for Rheumatology for joint pain documented in this encounter Plan of Treatment Upcoming Encounters Date Type Department Care Team (Late st Contact Info) Description 11/18/2024 1:30 PM CDT Office Visit [facility] - Dermatology [address] [facility], [place] [address] Inna Trammell MD [address] [place] [address] [place] [address] documented as of this encounter Visit Diagnoses Not on filedocumented in this encounter Care Teams Animal Handler Relationship Specialty Start Date End Date Roberto Carlos Birmingham DO [address] [facility] [address] [place] [address] PCP - General Internal Medicine 06/01/16 documented as of this encounter
--- OUTSIDE RECORDS SUMMARY | 2024-09-29 16:16 | XMS_ITS | Referral Summary ---
Author Organization [facility] Address [address] [facility] [place] [address] Care Team Providers Care Application Integration Specialist Name Role Phone Roberto Carlos Birmingham Primary Care Provider Source Comments [facility],non-owned Affiliates and Associated Physician Practices is amultiple site organization consisting of ambulatory clinics and hospital sitesin [place], [place], [place] and [place]. This disclosure is being madepursuant to the Care Everywhere program and may not contain all information available regarding this patient. Last updated 18.[facility] [employer] Encounters Date Type Department Care Team Description 09/29/2024 Telephone [facility] - Centralized Scheduling [address] [place] [address] Inna Trammell MD Question from Last 3 Months Allergies Active Allergy Reactions Criticality Noted Date Comments Sulfa Drugs Nausea and/or Vomiting 08/24/2019 Early adulthood allergy. Medications * Be aware that medications may not be up to date on this document. Alwaysverify current medications with the patient. Medication Sig Dispensed Refills Start Date End Date Status vitamin D, ergocalciferol, (Drisdol) 1.25 MG (83173 UT) capsule 05/14/2023 Active risankizumab-rzaa (Skyrizi Pen) [...] potential mismatch. 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 SUPERVISOR [employer] Pulse 67 08/15/2020 3:14 PM SUPERVISOR CONTA[employer] Temperature 36.8 C (98.2 F) 08/15/2020 3:14 PM [employer] Respiratory Rate 17 08/15/2020 3:14 PM [employer]PER[employer] Oxygen Saturation 98% 08/15/2020 3:14 PM [employer]PERVISOR [employer] Inhaled Oxygen Concentration - - Weight 79.8 kg (176 lb) 08/15/2020 3:14 PM [employer] Height 152.4 cm (5') 08/15/2020 3:14 PM [employer]PER[employer]OR [employer] Body Mass Index 34.37 08/15/2020 3:14 PM SUPERVISOR CON[employer] Plan of Treatment Upcoming Encounters Date Type Department Care Team (Late st Contact Info) Description 11/18/2024 1:30 PM CDT Office Visit [facility] - Dermatology [address] [facility], [place] [address] Inna Trammell MD [address] [facility] [place] [address] Procedures Procedure Name Priority Date/Time Associated Diagnosis Comments HEPATITIS C ANTIBODY Routine 08/20/2023 5:15 PM SUPERVISOR [employer] Arthritis from Last 3 Months or Most Recently Relevant to Health Maintenance Results * HEPATITIS C ANTIBODY (08/20/2023 5:15 PM SUPERVISOR CONTACT [employer]ENS) Hepatitis C Antibody Non-react octavio Non-reac tive 08/20/2023 6:55 [address] SUPER[address] CONTA[facility] [employer] Comment:Hepatitis C Antibody screen indicates [...] Lab Venipuncture / Unknown 08/20/2023 5:15 PM SUPERVISOR CONTA[employer] 08/20/2023 6:22 PM [employer]PERVISOR [employer] Inna Trammell MD LAB - CHEMISTRY VINICIO CHAIDE[facility] Organization Address City/State/ZIP Co de Phone Number [facility] [address] [place] [address], [facility] [phone] from Last 3 Months or Most Recently Relevant to Health Maintenance Care Teams Application Integration Specialist Relationship Specialty Start Date End Date Roberto Carlos Birmingham DO [address] [facility] [address] [place], [place] [id number] PCP - General Internal Medicine 06/01/16
--- OUTSIDE RECORDS SUMMARY | 2024-09-29 16:16 | XMS_ITS | Clinical Summary ---
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 Social History Tobacco Use Types Packs/Day Years Used Date Smoking Tobacco: Never Assessed Sex and Gender Information Value Date Recorded Sex Assigned at Not on file Gender Identity Not on file Sexual Orientation Not on file Last Filed Vital Signs Vital Sign Reading Time Taken Comments Blood Pressure 130/70 04/16/2013 12:01 AM CDT Sitting, Left Pulse - - Temperature 36.7 C (98.1 F) 04/16/2013 12:01 AM CDT Respiratory Rate - - Oxygen Saturation - - Inhaled Oxygen Concentration - - Weight 89.8 kg (198 lb) 04/16/2013 12:0 1 AM CDT Height 154.9 cm (5' 1 ) 04/16/2013 12:0 1 AM CDT Body Mass Index 37.41 04/16/2013 12:01 AM CDT Plan of Treatment Not on file
--- OUTSIDE RECORDS SUMMARY | 2024-09-29 17:43 | XMS_ITS | Continuity of Care Document ---
Author Organization [email or web address] Address [address] [place] [address] [address] [place] [address] Phone Care Team Providers Care Game Farm Supervisor Name Role Phone Schmidt Shirley PICKETT Unavailable Unavailable Procedures Procedure Date PT Evaluation Moderate Complexity Therapeutic Activities Neuromuscular Re-Ed Therapeutic Exercise Manual Therapy Therapeutic Activities Neuromuscular Re-Ed Therapeutic Exercise Manual Therapy PT Re-evaluation Therapeutic Activities Neuromuscular Re-Ed Therapeutic Exercise Manual Therapy PT Re-evaluation Therapeutic Activities Neuromuscular Re-Ed Therapeutic Exercise Manual Therapy Therapeutic Activities Neuromuscular Re-Ed Therapeutic Exercise Manual Therapy Therapeutic Activities Neuromuscular Re-Ed Therapeutic Exercise Manual Therapy Hot or Cold Pack Canalith Repositioning Procedure 2022 Dry Needling 1-2 muscles Therapeutic Activities Neuromuscular Re-Ed Therapeutic Exercise Manual Therapy Therapeutic Activities Manual Therapy Hot or Cold Pack Canalith Repositioning Procedure 2022 PT Evaluation Moderate Complexity Therapeutic Activities Canalith Repositioning Procedure 2022 Free Assessment Therapeutic Activities Neuromuscular Re-Ed Therapeutic Exercise Manual Therapy Therapeutic Activities Neuromuscular Re-Ed Therapeutic Exercise Manual Therapy Therapeutic Activities Neuromuscular Re-Ed Therapeutic Exercise Manual Therapy Hot or Cold Pack Therapeutic Activities Neuromuscular Re-Ed Therapeutic Exercise Manual Therapy Therapeutic Activities Neuromuscular Re-Ed Therapeutic Exercise Manual Therapy Therapeutic Activities Neuromuscular Re-Ed Therapeutic Exercise Manual Therapy Free Assessment PT Re-evaluation Therapeutic Activities Neuromuscular Re-Ed Therapeutic Exercise Manual Therapy Therapeutic Activities Neuromuscular Re-Ed Therapeutic Exercise Manual Therapy Therapeutic Activities Neuromuscular Re-Ed Therapeutic Exercise Manual Therapy Therapeutic Activities Neuromuscular Re-Ed Therapeutic Exercise Manual Therapy Therapeutic Activities Neuromuscular Re-Ed Therapeutic Exercise Manual Therapy Therapeutic Activities Neuromuscular Re-Ed Therapeutic Exercise Manual Therapy Therapeutic Activities Neuromuscular Re-Ed Therapeutic Exercise Manual Therapy Hot or Cold Pack Therapeutic Activities Neuromuscular Re-Ed Therapeutic Exercise Manual Therapy PT Evaluation Moderate Complexity Therapeutic Activities Neuromuscular Re-Ed Therapeutic Exercise Manual Therapy Therapeutic Activities Neuromuscular Re-Ed Therapeutic Exercise Therapeutic Activities Neuromuscular Re-Ed Therapeutic Exercise Manual Therapy Progress Note Therapeutic Activities Neuromuscular Re-Ed Therapeutic Exercise Manual Therapy Hot or Cold Pack Therapeutic Activities Neuromuscular Re-Ed Therapeutic Exercise Manual Therapy Therapeutic Activities Neuromuscular Re-Ed Therapeutic Exercise Manual Therapy Therapeutic Activities Neuromuscular Re-Ed Therapeutic Exercise Manual Therapy Therapeutic Activities Neuromuscular Re-Ed Therapeutic Exercise Manual Therapy Hot or Cold Pack Therapeutic Activities Neuromuscular Re-Ed Therapeutic Exercise Manual Therapy PT Evaluation Low Complexity Therapeutic Activities Therapeutic Exercise Manual Therapy Hot or Cold Pack Advance Directives Directive Yes / No Effective Date File Name No Information Encounters Encounter Description Practice Location Reason(s) For Visit Diagnoses Date Provider Providers Copied on Encounter [facility], [address], [place], [place], [address], [place] tel:[phone] [facility] No Information Brayan Watson. [address] [facility], [address], [place], [place], [facility], . tel:[phone] Referring Provider: [address], [place], [address]. tel:[phone] [facility], [address] [facility] [address], [place], [place], [address], [place] tel:[phone] [facility] No Information Brayan Watson. [address] [facility], [address], [place], [place], [facility], [place]. tel:[phone] Referring Provider: [address], [place], [address]. tel:[phone] [facility] [facility] [facility] [address], [place], [place], [address], [place] tel:[phone] [facility] No Information Brayan Watson. [address] [facility], [address], [place], [address], [place]. tel:[phone] Referring Provider: [address], [place], [address]. tel:[phone] [facility] [facility] [facility] [address], [place], [place], [address], [place] tel:[phone] [facility] No Information Brayan Watson. [address] [facility], [address], [place], [address], [place]. tel:[phone] Referring Provider: [address], [place], [address]. tel:[phone] [facility] [facility] [address], [place], [place], [address], [place] tel:[phone] [facility] No Information Brayan Watson. [address] [facility], [address], [place], [place], [facility], [place]. tel:[phone] Referring Provider: [address], [place], [address]. tel:[phone] [facility], [address], [place], [place], [address], [place] tel:[phone] [facility] No Information Stew Jia. . [facility], [address], [place], [place], [address], [place] tel:[phone] [facility] No Information Stew Jia. . [facility], [address], [place], [place], [address], [place] tel:[phone] [facility] No Information Stew Jia. . [facility], [address], [place], [place], [address], [place] tel:[phone] [facility] No Information Stew Jia. . [facility], [address], [place], [place], [address], [place] tel:[phone] [facility] No Information Stew Jia. . Referring Provider: Physician Screen. [facility], [address], [place], [place], [address], [place] tel:[phone] [facility] No Information Brayan Watson. [address] [facility], [address], [place], [address], [place]. tel:[phone] Referring Provider: [address], [place], [address]. tel:[phone], [place], [place], [address], tel:[phone] [facility] No Information Brayan Watson. [address] [facility], [address], [place], [facility], . tel:[phone] Referring Provider: [address], [place], [address]. tel:[phone] [address], [place], [place], [address], tel:[phone] [facility] No Information Brayan Watson. [address] [facility], [address], [place], [facility], . tel:[phone] Referring Provider: [address], [place], [address]. tel:[phone] [address], [place], [place], [address], [place] tel:[phone] [facility] No Information Brayan Watson. [address] [facility], [address], [place], [facility], [place]. tel:[phone] Referring Provider: [address], [place], [address]. tel:[phone] [address], [place], [place], [address], [place] tel:[phone] [facility] No Information Brayan Watson. [address] [facility], [address], [address], . tel:[phone] Referring Provider: [address], [place], [address]. tel:[phone] [facility], [address] [place], [place] [address], [place], [place], [address], tel:[phone] [facility] No Information Brayan Watson. [address] [facility], [address], [facility], . tel:[phone] Referring Provider: [address], [place], [address]. tel:[phone] [facility] [address] [place] [address], [place], [place], [address], [place] tel:[phone] [facility] No Information Brayan Watson. [address] [place] [address], [facility] [address], [place], [place], [facility], . tel:[phone] Referring Provider: Physician Zhong. [facility] [facility] [address], [place], [place], [address], tel:[phone] [facility] No Information Brayan Watson. [address] [place] [address], [address], [facility], . tel:[phone] Referring Provider: [address], [place], [address]. tel:[phone] [facility] [address] [place], [place] [address], [place], [place], [address], [place] tel:[phone] [facility] No Information Brayan Watson. [address] [place] [address], [address], [place], [place], [facility], . tel:[phone] Referring Provider: [address], [place], [address]. tel:[phone] [facility] [facility], [place], [place], [address], tel:[phone] [facility] No Information Brayan Watson. [address] [place] [address] [address], [place], [place], [facility], . tel:[phone] Referring Provider: [address], [place], [address]. tel:[phone] [address], [place], [place], [address], tel:[phone] [facility] No Information Brayan Watson. [address] [facility], [address], [place], [place], [facility], . tel:[phone] Referring Provider: [address], [place], [address]. tel:[phone] [address], [place], [place], [address], tel:[phone] [facility] No Information Pedro Hicks. . Referring Provider: [address], [place], [address]. tel:[phone] [address], [place], [place], [address], tel:[phone] [facility] No Information Brayan Watson. [address] [place] [address], [address], [place], [place], [facility], . tel:[phone] Referring Provider: [address], [place], [address]. tel:[phone] [address], [place], [place], [address], tel:[phone] [facility] No Information Handwork Chun. . Referring Provider: [address], [place], [address]. tel:[phone] [facility], [address] [facility], [place], [place], [address], tel:[phone] [facility] No Information Brayan Watson. [address] [facility], [address], [place], [facility], . tel:[phone] Referring Provider: [address], [place], [address]. tel:[phone] [facility] [facility], [place], [place], [address], tel:[phone] [facility] No Information Brayan Watson. [address] [facility], [address], [place], [facility], . tel:[phone] Referring Provider: [address], [place], [address]. tel:[phone] [facility] [facility] [facility], [place], [place], [address], [place] tel:[phone] [facility] No Information Brayan Watson. [address] [facility], [address], [place], [facility], . tel:[phone] Referring Provider: [address], [place], [address]. tel:[phone] [facility] [facility] [address], [place], [place], [address], [place] tel:[phone] [facility] No Information Handwork Chun. . Referring Provider: [address], [place], [address]. tel:[phone] [facility] [facility] [address], [place], [place], [address], tel:[phone] [facility] No Information Handwork Chun. . Referring Provider: [address], [place], [address]. tel:[phone] [facility] [address] [facility], [place], [place], [address], tel:[phone] [facility] No Information Brayan Watson. [address] [place] [address], [address], [facility], . tel:[phone] Referring Provider: [address], [place], [address]. tel:[phone] [facility] [address] [place], [place] [address], [place], [place], [address], tel:[phone] [facility] No Information Handwork Chun. . Referring Provider: [address], [place], [address]. tel:[phone] [facility] [address] [place], [place] [address], [place], [place], [address], [place] tel:[phone] [facility] No Information Brayan Watson. [address] [place] [address], [address], [facility], . tel:[phone] Referring Provider: [address], [place], [address]. tel:[phone], [place], [place], [address], [place] tel:[phone] [facility] No Information Handwork Chun. . Referring Provider: [address], [place], [address]. tel:[phone] [facility] [address], [place], [place], [address], tel:[phone] [facility] No Information Brayan Watson. [address] [facility], [address], [place], [address], [place]. tel:[phone] Referring Provider: [address], [place], [address]. tel:[phone] [facility], [address], [place], [place], [address], tel:[phone] [facility] No Information Handwork Chun. . Referring Provider: [address], [place], [address]. tel:[phone] Family History Family Member Type Diagnosis Age At Onset No Information Payers Payer name Insurance type Covered democrat ID Rogelio garcia(s) [facility] [id number] Social History Type Description Quantity Date Captured Comments Alcohol Use Details Unknown Caffeine Use Details Unknown Tobacco Use Status Current non-smoker Smoking Status Never smoker Non-Smoking Tobacco Use Details : No Details Available : No Details Available Sex Female Vital Signs Date / Time: Height Weight BMI Pulse Rate Blood Pressure Temperature Respiratory Rate Body Surface Area Head Circumference Head Circ. Percentile Wt./Melecio. Percentile BMI percentile Pulse Ox Inhaled Ox 1:59 PM 61.00 in 65.770 kg (145.00 lbs) 27.3 9 kg/m eter (2) 1.68 meter(2) Chief Complaint And Reason For Visit No Information Reason For Referral Reason For Referral No Information History Of Present Illness Encounter Date Complaint History Of Prese nt Illness No Information Functional Status Date Functional Assessmen t No Information Instructions Date Instruction Additional Infor mation Dietary needs education Related to Overweight Giving encouragement to exercise Related to Overweight Giving encouragement to exercise Related to Overweight Dietary needs education Related to Overweight Prescribed activity/exercise edu cation Related to Overweight Dietary needs education Related to Overweight Prescribed activity/exercise edu cation Related to Overweight Prescribed activity/exercise edu cation Related to Overweight Assessments Type Assessment Date No Information Patient Care Teams Name Effective Dates (start - stop) Status Members No Information
--- OUTSIDE RECORDS SUMMARY | 2024-09-29 17:43 | XMS_ITS | Referral Summary ---
Author Organization [facility] Address [address] [place] [address] Care Team Providers Care Sumo Wrestler Name Role Phone Napoleon Gutierrez DO Primary Care Provider [phone] Allergies Active Allergy Reactions Criticality Noted Date [...] on file Legal Sex Female 4:21 AM ASSISTANT PRODUCT MANAGER Gender Identity Not on file Sexual Orientation Not on file Last Filed Vital Signs Vital Sign Reading Time Taken Comments Blood Pressure 142/79 06/16/2023 3:30 PM ASSISTANT PRODUCT MANAGER Pulse 57 06/16/2023 3:30 PM ASSISTANT PRODUCT MANAGER Temperature 37.1 C (98.7 F) 06/16/2023 11:29 AM ASSISTANT PRODUCT MANAGER Respiratory Rate 20 06/16/2023 3:30 PM ASSISTANT PRODUCT MANAGER Oxygen Saturation 99% 06/16/2023 3:30 PM ASSISTANT PRODUCT MANAGER Inhaled Oxygen Concentration - - Weight 74.8 kg (165 lb) 06/16/2023 11:29 AM ASSISTANT PRODUCT MANAGER Height 152.4 cm (5') 06/16/2023 11:29 AM ASSISTANT PRODUCT MANAGER Body Mass Index 32.22 06/16/2023 11:29 AM ASSISTANT PRODUCT MANAGER Plan of Treatment Not on file Procedures [...] compared to prior imaging studies performed at [facility] on 02/03/2021, 02/17/2022 and 05/10/2023. There are [...] compared to prior imaging studies performed at [facility] on 02/03/2021, 02/17/2022 and 05/10/2023. There are scattered areas of fibroglandular density. There is no suspicious abnormality in either breast. Impression: There is no mammographic evidence of malignancy. Annual screening mammography is recommended. OVERALL FINAL ASSESSMENT: BI-RADS CATEGORY 1: Negative. us Self Screening Mammogram IMG MAMMO PROCEDURES Fi nal Result from Last 3 Months or Most Recently Relevant to Health Maintenance Insurance Kwikp[employer] ID Kwikpik ID Kwikpik ID Care Teams Sumo Wrestler Relationship Specialty Start Date End Date Napoleon Gutierrez DO [address] [facility] [address] [address] [id number] PCP - General Internal Medicine 02/20/24
--- OUTSIDE RECORDS SUMMARY | 2024-09-29 17:43 | XMS_ITS | Encounter Summary ---
Author Organization [facility] Address [address] [place] [address] Care Team Providers Care Auto Club Safety Program Coordinator Name Role Phone KrissDiogenes chaujohnathan Carvalho DO Primary Care Provider [phone] Reason for Visit * Reason Onset Date Comments Nurse Only 08/30/2023 Encounter Details Date Type Department Care Team (Late st Contact Info) Description 08/30/2023 Telephone [facility] - Centralized Scheduling [address] [place] [id number] Inna Trammell MD [facility] [place] [address] Nurse Only Social History Tobacco [...] call back at my direct phone line ([phone]). I emailed patient portion of [employer] Application to patient's email and waiting for provider to complete her portion as well. Once application portions are signed I will fax to [employer]. Candy Powers CTOR GLOBAL SALES * Telephone Encounter - aSrika Trammell - 08/30/2023 4:05 PM CST Pt is calling dx Psorasis, she is having issues with Skyrizi,pt does not have prescription yet the cost is 6000$ and she is also calling to see what her results where for biopsy, pt would like to speak to the office CTOR G[employer] SAL[employer] documented in this encounter Plan of Treatment Upcoming Encounters Date Type Department Care Team (Late st Contact Info) Description 11/18/2024 1:30 PM CDT Office Visit [facility] - Dermatology [address] [facility], [facility] [place] [phone] Inna Trammell MD [address] [facility] [place] [address] documented as of this encounter Visit Diagnoses Not on filedocumented in this encounter Care Teams Auto Club Safety Program Coordinator Relationship Specialty Start Date End Date Roberto Carlos Birmingham DO [address] [facility] [address] [facility] [address] [place] [address] PCP - General Internal Medicine 06/01/16 documented as of this encounter
--- OUTSIDE RECORDS SUMMARY | 2024-09-29 17:43 | XMS_ITS | Continuity of Care Document ---
Author Organization [facility] Address [address] [place] [address] Phone Care Team Providers Care Flagger Name Role Phone Александр DUTTON, Ryland Unavailable Unavailable Procedures Procedure Date INJ SPINE CERV/THOR W/ IMAGING GUIDANCE SURGICAL TRAY LOW OSMOLAR CONTRAST (200 TO 299 MG IODI NE) Injection, Triamcinolone Acetonide, 10mg Advance Directives Directive Yes / No Effective Date File Name No Information Encounters Encounter Description Practice Location Reason(s) For Visit Diagnoses Date Provider Providers Copied on Encounter [facility], [address], [place], [place], [address], [place] tel:[phone] [facility] No Information Александр Marcelino. [address] , [place], [place], [address], [place]. tel:[phone] Referring Provider: Ramon Casey DO, [address], [place], [address]. tel:[phone] Family History Family Member Type Diagnosis Age At Onset No Information Payers Payer name Insurance type Covered green party ID Authoriza tion(s) [facility] ACCESS BL [id number] Social History Type Description Quantity Date Captured [...]
--- OUTSIDE RECORDS SUMMARY | 2024-09-29 17:43 | XMS_ITS | Encounter Summary ---
Author Organization [facility] Address [address] [place] [address] Care Team Providers Care Employment Office Clerk Name Role Phone Valencia Roberto Carlos Carvalho DO Primary Care Provider [phone] Encounter Details Date Type Department Care Team (Late st Contact Info) Description 09/19/2023 Telephone [facility] - Dermatology [address] [place] [address] Inna Trammell MD [facility] [facility] [place] [address] Social History Tobacco Use Types [...] call to speak with Candy. 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 documented in this encounter Plan of Treatment Upcoming Encounters Date Type Department Care Team (Late st Contact Info) Description 11/18/2024 1:30 PM CDT Office Visit [facility] [address] [facility] [place] [address] Inna Trammell MD [facility] [place] [address] documented as of this encounter Visit Diagnoses Not on filedocumented in this encounter Care Teams Employment Office Clerk Relationship Specialty Start Date End Date Roberto Carlos Birmingham DO [address] [facility] [address] [facility] [address] [place] [address] PCP - General Internal Medicine 06/01/16 documented as of this encounter
--- OUTSIDE RECORDS SUMMARY | 2024-09-29 17:43 | XMS_ITS | Continuity of Care Document ---
Author Organization [facility] Address [address] [facility] [address] [place] [address] Phone Care Team Providers Care Spot Machine Operator Name Role Phone Symone Booth Unavailable Unavailable [...] on Encounter Office/outpat ient visit,est, mod [facility], [address] [facility] [facility] [address] [facility]], [place], [place], [address], [place] tel:[phone] [facility] Rewarder right shoulder pain (chief complaint) Pain in right shoulderPrimary osteoarthritis, right shoulder 0-201 6 Richard Ashby. [address] [facility] [place], [address], [place], [place], [address] , [place]. tel:[phone] [facility], [address] [facility] [address], [place], [place], [address], [place] [phone] [facility] post op right knee (chief complaint) Pain in right knee 6 Rocky Stockton. [address] [facility], [place], [place], [address] , [place]. tel:[phone] [facility], [address] [facility] [address], [place], [place], [address], [place] tel:[phone] [facility] Bailey Oth meniscus derangements, unsp medial meniscus, right knee 6 Rocky Stockton. [address] [facility], [facility] [address], [place], [place], [address] , [place]. tel:[phone] Office/outpat ient visit,[facility], [facility], [address] [facility] [address], [place], [place], [address], [place] tel:[phone] [facility] right knee - test results (chief complaint) Oth meniscus derangements, unsp medial meniscus, right knee 6 Rocky Stockton. [address] [facility], [facility] [address], [place], [place], [address] , [place]. tel:[phone] [facility], [address] [address], [place], [place], [address], [place] [phone] [facility] Oth meniscus derangements, unsp medial meniscus, right knee 6 [facility]. [address] [facility], [address], [place], [place], [address] , [place]. tel:[phone] Referring Provider: Mahin Yi, [address] [facility] [address], [place], [address] . tel:[phone] Office/outpat ient visit,[facility], [facility], [address] [facility] [address], [place], [place], [address], [place] tel:[phone] [facility] right knee (chief complaint) Pain in right kneeOther meniscus derangement of medial meniscus of rt knee 6 Rocky Stockton. [address] [facility], [address], [place], [place], [address] , [place]. tel: [phone] Family History Family Member Type Diagnosis Age At Onset Problem (finding) Family history of alcoh olism Problem (finding) Family history of Diabe philippe mellitus Problem (finding) Family history of Cance r, unknown Problem (finding) Family history of hyper tension Immunizations Vaccine Date Status Comments Flu (split) (3 yrs or older) administered Source: Other Provider Payers Payer name Insurance type Covered republican ID Authoriza tion(s) [place] [employer] [facility] [id number] Social History Type Description Quantity Date Captured [...]
--- OUTSIDE RECORDS SUMMARY | 2024-09-29 17:43 | XMS_ITS ---
de Phone Number [facility] * (ABNORMAL) COMPLEMENT C4 (05/21/2014 12:55 PM CASTING MOLDER) Only the most recent of2 resultswithin the time period is included. Complement C4 55(H) 9 - 36 mg/dL Adult [facility] ([facility]) Blood specimen (specimen) BLOOD SPECIMEN / Unknown 05/21/2014 12:55 PM CASTING MOLDER 05/21/2014 6:24 PM CASTING MOLDER Narrative [facility] - 05/27/2014 7:23 AM CASTING MOLDER Performed at: 02 - [address] [id number] Roving Hauler: Nehemias Rosas PhD, Phone: [phone] Micaela Navas MD LAB - SEROLOGY ORDERABLES [facility] ([facility]) * (ABNORMAL) COMPREHENSIVE METABOLIC PANEL (05/21/2014 12:55 PM CASTING MOLDER) Only the most recent of15 resultswithin the time period is included. Pathologist [facility] [place] Glucose 79 65 - 99 mg/dL [facility] (BEAKER) BUN 9 6 - 24 mg/dL [facility] (BEAKER) Creatinine 0.58 0.57 - 1.00 mg/dL [facility] (BEAKER) eGFR non- 113 >59 mL/min/1.7 3 [facility] (BEAKER) eGFR 131 >59 mL/min/1.7 3 [facility] (BEAKER) BUN/Creatinine Ratio 16 9 - 23 [facility] (BEAKER) Sodium 139 134 - 144 mmol/L [facility] (BEAKER) Potassium 4.3 3.5 - 5.2 mmol/L [facility] (BEAKER) Chloride 96(L) 97 - 108 mmol/L [facility] (BEAKER) CO2 23 18 - 29 mmol/L [facility] (BEAKER) Calcium 9.3 8.7 - 10.2 mg/dL [facility] (BEAKER) Protein Total 7.3 6.0 - 8.5 g/dL [facility] (BEAKER) Albumin 4.5 3.5 - 5.5 g/dL [facility] (BEAKER) Globulin Total 2.8 1.5 - 4.5 g/dL [facility] (BEAKER) Albumin/Globulin Ratio 1.6 1.1 - 2.5 [facility] (BEAKER) Bilirubin Total 0.4 0.0 - 1.2 mg/dL [facility] (BEAKER) Alkaline Phosphatase 63 39 - 117 IU/L [facility] (BEAKER) AST 13 0 - 40 IU/L [facility] (BEAKER) ALT 12 0 - 32 IU/L [facility] (BEAKER) Blood specimen (specimen) BLOOD SPECIMEN / Unknown 05/21/2014 12:55 PM CASTING MOLDER 05/21/2014 6:24 PM CASTING MOLDER Narrative [facility] (BEAKER) - 05/27/2014 7:23 AM CASTING MOLDER Performed at: [address] [place] [address] [id number] Roving Hauler: Nehemias Rosas PhD, Phone: [phone] Micaela Navas MD LAB - CHEMISTR Y ORDERABLES Performing Organization Address [facility] de Phone Number [facility] ([facility]) * COMPLEMENT C3 (05/21/2014 12:55 PM CASTING MOLDER) Only the most recent of2 resultswithin the time period is included. Complement C3 153 90 - 180 mg/dL Adult [facility] (BEAKER) Blood specimen (specimen) BLOOD SPECIMEN / Unknown 05/21/2014 12:55 PM CASTING MOLDER 05/21/2014 6:24 PM CASTING MOLDER Narrative [facility] (BEAKER) - 05/27/2014 7:23 AM CASTING MOLDER Performed at: [address] [place] [address] [id number] Roving Hauler: Nehemias Rosas PhD, Phone: [phone] Micaela Navas MD LAB - CHEMISTR Y ORDERABLES Performing Organization Address [facility] Co de Phone Number [facility] ([facility]) * LAB HISTORICAL RESULTS-ONBASE (06/23/2013) Only the most recent of2 resultswithin the time period is included. 06/23/2013 Narrative [facility] - 06/27/2013 9:52 AM CASTING MOLDER Historical Provider LAB - CHEMISTRY O RDERABLES Performing Organization Address [facility] Co de Phone Number [facility] [address] * CRYOGLOBULIN SCREEN W/REFLEX CRYOGLOBULIN PROFILE (05/26/2013 10:49 AM CASTING MOLDER) Cryoglobulin Qualitative Reflex None detected [facility]) Comment:None Detected at 72 hours 05/26/2013 10:4 9 AM CASTING MOLDER 05/26/2013 2:02 PM CASTING MOLDER Narrative [facility] ([facility]) - 05/30/2013 3:16 PM CASTING MOLDER Performed at: [address] [id number] Roving Hauler: Brayden Garcia MD, Phone: [phone] Micaela Navas MD LAB - COAGULAT ION ORDERABLES Performing Organization Address [facility] de Phone Number [facility] * BETA-2 GLYCOPROTEIN 1 ANTIBODY IGG (05/26/2013 10:49 AM CASTING MOLDER) Beta-2 Glycoprotein 1 Antibody 1 IgG <9 0 - [address] [facility]) Comment: The reference interval reflects a 3SD or 99th percentile interval, which is thought to represent a potentially clinically significant result in accordance with the International Consensus Statement on the classification criteria for definitive antiphospholipid syndrome (APS). J Thromb Haem 2006;4:295-306. 05/26/2013 10:4 9 AM CASTING MOLDER 05/26/2013 2:02 PM CASTING MOLDER Narrative [facility] ([facility]) - 05/29/2013 3:19 PM CASTING MOLDER Performed at: [address] [id number] Roving Hauler: Carlos Morse MD, Phone: [phone] Micaela Navas MD LAB - SEROLOGY ORDERABLES Performing Organization Address [facility] de Phone Number [facility] * BETA-2 GLYCOPROTEIN 1 ANTIBODY IGM (05/26/2013 10:49 AM CASTING MOLDER) Beta-2 Glycoprotein 1 Antibody IgM <9 0 - 32 GPI IgM units [facility] ([facility]) Comment: The reference interval reflects a 3SD or 99th percentile interval, which is thought to represent a potentially clinically significant result in accordance with the International Consensus Statement on the classification criteria for definitive antiphospholipid syndrome (APS). J Thromb Haem 2006;4:295-306. 05/26/2013 10:4 9 AM CASTING MOLDER 05/26/2013 2:02 [address] [facility]) - 05/29/2013 3:19 PM CASTING MOLDER Performed at: [address] [id number] Roving Hauler: Carlos Morse MD, Phone: [phone] Micaela Navas MD LAB - SEROLOGY ORDERABLES Performing Organization Address [facility] de Phone Number [facility] * CARDIOLIPIN ANTIBODY IGA (05/26/2013 10:49 AM CASTING MOLDER) Pathologist [facility] [place] Anticardiolipin Antibody IgA Quantitative <9 0 - 11 APL U/mL [facility]) Comment: Negative: <12 Indeterminate: 12 - 20 Low-Med Positive: >20 - 80 High Positive: >80 05/26/2013 10:4 9 AM CASTING MOLDER 05/26/2013 2:02 [address] [facility]) - 05/29/2013 3:19 PM CASTING MOLDER Performed at: [address] [id number] Roving Hauler: Brayden Garcia MD, Phone: [phone] Micaela Navas MD LAB - SEROLOGY ORDERABLES Performing Organization Address City/[facility]/ZIP Co de Phone Number [facility] ([facility]) * CARDIOLIPIN ANTIBODY IGM (05/26/2013 10:49 AM CASTING MOLDER) Pathologist [facility] [place] Anticardiolipin Antibody IgM Quantitative <9 0 - 12 MPL U/mL [facility] ([facility]) Comment: Negative: <13 Indeterminate: 13 - 20 Low-Med Positive: >20 - 80 High Positive: >80 05/26/2013 10:4 9 AM CASTING MOLDER 05/26/2013 2:02 PM CASTING MOLDER Narrative [facility] ([facility]) - 05/29/2013 3:19 PM CASTING MOLDER Performed at: [address] [place], [place] [id number] Roving Hauler: Brayden Garcia MD, Phone: [phone] Micaela Navas MD LAB - SEROLOGY ORDERABLES Performing Organization Address [facility] Co de Phone Number [facility] ([facility]) * CARDIOLIPIN ANTIBODY IGG (05/26/2013 10:49 AM CASTING MOLDER) Pathologist [facility] [place] Anticardiolipin Antibody IgG Quantitative <9 0 - 14 GPL U/mL [facility]) Comment: Negative: <15 Indeterminate: 15 - 20 Low-Med Positive: >20 - 80 High Positive: >80 05/26/2013 10:4 9 AM CASTING MOLDER 05/26/2013 2:02 PM CASTING MOLDER Narrative [facility] ([facility]) - 05/29/2013 3:19 PM CASTING MOLDER Performed at: [address] [place] [address] [id number] Roving Hauler: Brayden Garcia MD, Phone: [phone] Micaela Navas MD LAB - SEROLOGY ORDERABLES Performing Organization Address City/[facility]/ZIP Co de Phone Number [facility] ([facility]) * LUPUS ANTICOAGULANT PANEL W RFLX (05/26/2013 10:49 AM CASTING MOLDER) Pathologist [facility] [place] PTT Lupus Anticoagulant 38.5 0.0 - 50.0 sec [facility] dRVVT Baseline 37.9 0.0 - 55.1 sec [facility] Interpretation Comment: [facility] Maia ABCAYO ([facility]) Comment:No lupus anticoagula nt was detected. Plasma specimen (specimen) 05/26/2013 10:49 AM CASTING MOLDER 05/26/2013 2:02 PM CASTING MOLDER Narrative [facility] ([facility]) - 05/29/2013 3:19 PM CASTING MOLDER Performed at: [address] [id number] Roving Hauler: Carlos Morse MD, Phone: [phone] Micaela Navas MD LAB - HEMATOLO GY ORDERABLES Performing Organization Address [facility] Co de Phone Number [facility] ([facility]) * RHEUMATOID FACTOR BLOOD QUANTITATIVE (05/26/2013 10:49 AM CASTING MOLDER) Pathologist [facility] [place] RA latex Turbidimetry 10.1 0.0 - 13.9 IU/mL [facility] ([facility]) Venous blood specimen (specimen) 05/26/2013 10:49 AM CASTING MOLDER 05/26/2013 2:02 PM CASTING MOLDER Narrative [facility] ([facility]) - 05/29/2013 3:19 PM CASTING MOLDER Performed at: [address] [place] [address] [id number] Roving Hauler: Brayden Garcia MD, Phone: [phone] Micaela Navas MD LAB - CHEMISTR Y ORDERABLES [facility] ([facility]) * HLA TYPING B27 (05/26/2013 10:49 AM CASTING MOLDER) Pathologist [facility] [place] HLA-B27 Negative [facility] ([facility]) Comment: HLA-B*27 Negative This test was performed using PCR (Polymerase Chain Reaction)/SSOP (Sequence Specific Oligonucleotide Probes) technique. SBT (Sequence Based Typing) and/or SSP (Sequence Specific Primers) may be used as supplemental methods when necessary. Please contact [facility] Customer Service at if you have any questions. Director of [facility] Laboratory Dr Dewayne Jolly, PhD 05/26/2013 10:4 9 AM CASTING MOLDER 05/26/2013 2:02 PM CASTING MOLDER Narrative [facility] (BEAKER) - 05/29/2013 3:19 PM CASTING MOLDER Performed at: [address] [id number] Roving Hauler: Dewayne Jolly PhD, Phone: [phone] Micaela Navas MD LAB - CHEMISTR Y ORDERABLES [facility] ([facility]) * NEUTROPHIL CYTOPLASMIC ANTIBODY (05/26/2013 10:49 AM CASTING MOLDER) C-ANCA Titer <1:20 Neg:<1:20 titer [facility] (BEAKER) p-ANCA <1:20 Neg:<1:20 titer [facility] ([facility] Comment: The presence of positive fluorescence exhibiting P-ANCA or C-ANCA patterns alone is not specific for the diagnosis of Liliane's Granulomatosis (WG) or microscopic polyangiitis. Decisions about treatment should not be based solely on ANCA IFA results. The International ANCA [employer] Consensus recommends follow up testing of positive sera with both WA-3 and MPO-ANCA enzyme immunoassays. As many as 5% serum samples are positive only by EIA. Ref. AM J Clin Pathol 1999;111:507-513. Atypical p-ANCA <1:20 Neg:<1:20 titer [facility] (BEAKER) Comment: The atypical pANCA pattern has been observed in a significant percentage of patients with ulcerative colitis, primary sclerosing cholangitis and autoimmune hepatitis. Venous blood specimen (specimen) 05/26/2013 10:49 AM CASTING MOLDER 05/26/2013 2:02 PM CASTING MOLDER Narrative [facility] (BEAKER) - 05/29/2013 3:19 PM CASTING MOLDER Performed at: [address] [id number] Roving Hauler: Brayden Garcia MD, Phone: [phone] Micaela Navsa MD LAB - CHEMISTR Y ORDERABLES Performing Organization Address [facility] Co de Phone Number [facility]) * PROTEINASE 3 (05/26/2013 10:49 AM CASTING MOLDER) Proteinase 3 <3.5 0.0 - 3.5 U/mL [facility]) 05/26/2013 10:4 9 AM CASTING MOLDER 05/26/2013 2:02 [address] [facility]) - 05/29/2013 3:19 PM CASTING MOLDER Performed at: - [address] [id number] Roving Hauler: Carlos Morse MD, Phone: [phone] Micaela Navas MD LAB - CHEMISTR Y ORDERABLES Performing Organization Address [facility] Phone Number [facility] ([facility]) * CYCLIC CITRUL PEPTIDE AB IGG (CCP) (05/26/2013 10:49 AM CASTING MOLDER) Pathologist [facility] [place] Cyclic Citrullinated Peptide Antibody 5 0 - 19 units [facility] ([facility]) Comment: Negative <20 Weak positive 20 - 39 Moderate positive 40 - 59 Strong positive >59 05/26/2013 10:4 9 AM CASTING MOLDER 05/26/2013 2:02 PM CASTING MOLDER Narrative [facility] ([facility]) - 05/29/2013 3:19 PM CASTING MOLDER Performed at: - [address] [id number] Roving Hauler: Carlos Morse MD, Phone: [phone] Micaela Navas MD LAB - CHEMISTR Y ORDERABLES Performing Organization Address [facility] de Phone Number [facility]) * HEPATITIS B SURFACE ANTIGEN W RFLX CONFIRMATION (05/26/2013 10:49 AM CASTING MOLDER) Hepatitis B Virus Surface Antigen Screen Negative Negative [facility] ([facility]) Venous blood specimen (specimen) 05/26/2013 10:49 AM CASTING MOLDER 05/26/2013 2:02 PM CASTING MOLDER Narrative [facility] ([facility]) - 05/29/2013 3:19 PM CASTING MOLDER Performed at: [address] [place] [address] [id number] Roving Hauler: Brayden Garcia MD, Phone: [phone] Micaela Navas MD LAB - CHEMISTR Y ORDERABLES Performing Organization Address City/[facility] Co de Phone Number [facility] ([facility]) * CK BLOOD (05/26/2013 10:49 AM CASTING MOLDER) CK Total 81 24 - 173 U/L [facility] ([facility]) Serum 05/26/2013 10:4 9 AM CASTING MOLDER 05/26/2013 2:02 PM CASTING MOLDER Narrative [facility] ([facility]) - 05/29/2013 3:19 PM CASTING MOLDER Performed at: [address] [place] [address] [id number] Roving Hauler: Brayden Garcia MD, Phone: [phone] Micaela Navas MD LAB - CHEMISTR Y ORDERABLES Performing Organization Address [facility] de Phone Number [facility] ([facility]) * TSH (05/26/2013 10:49 AM CASTING MOLDER) TSH 1.300 0.450 - 4.500 uIU/mL [facility] Venous blood specimen (specimen) 05/26/2013 10:49 AM CASTING MOLDER 05/26/2013 2:02 PM CASTING MOLDER Narrative [facility] ([facility]) - 05/29/2013 3:19 PM CASTING MOLDER Performed at: [address] [place] [address] [id number] Roving Hauler: Brayden Garcia MD, Phone: [phone] Micaela Navas MD LAB - CHEMISTR Y ORDERABLES [facility] (BEAKER) * T4 FREE (05/26/2013 10:49 AM CASTING MOLDER) Pathologist [facility] [place] T4 Free 1.11 0.82 - 1.77 ng/dL [facility] (BEAKER) Venous blood specimen (specimen) 05/26/2013 10:49 AM CASTING MOLDER 05/26/2013 2:02 PM CASTING MOLDER Narrative [facility] (BEAKER) - 05/29/2013 3:19 PM CASTING MOLDER Performed at: 02 - [address] [id number] Roving Hauler: Brayden Garcia MD, Phone: [phone] Micaela Navas MD LAB - CHEMISTR Y ORDERABLES Performing Organization Address City/[facility]/ZIP Co de Phone Number [facility] (BEAKER) * (ABNORMAL) CBC W AUTO DIFFERENTIAL (04/11/2013 8:02 AM CDT) Only the most recent of13 resultswithin the time period is included. Pathologist [facility] [place] WBC 6.7 3.4 - 10.8 x10E3/uL [facility] (BEAKER) RBC 4.28 3.77 - 5.28 x10E6/uL [facility] (BEAKER) Hemoglobin 14.2 11.1 - 15.9 g/dL [facility] (BEAKER) Hematocrit 42.8 34.0 - 46.6 % [facility] (BEAKER) MCV 100(H) 79 - 97 fL [facility] (BEAKER) MCH 33.2(H) 26.6 - 33.0 pg [facility] (BEAKER) MCHC 33.2 31.5 - 35.7 g/dL [facility] (BEAKER) RDW 12.9 12.3 - 15.4 % [facility] (BEAKER) Platelet 367 155 - 379 x10E3/uL [facility] (BEAKER) Neutrophils % 56 40 - [...] AM CDT 04/11/2013 12:41 PM CDT Narrative [facility] (BEAKER) - 04/12/2013 7:26 AM CDT Performed at: [address] [place] [address] [id number] Roving Hauler: Nehemias Rosas PhD, Phone: [phone] Lane Cortes MD LAB - HEMATOLOGY ORD ERABLES [facility] (BEAKER) * MRI FOOT LEFT WO [...] MICRO URINE RECEIVED (02/04/2013 12:00 AM CDT) [facility] ([facility]) Comment: No specimen received. TEST #[id number] URINE CULTURE SPECIMEN RECEIVED: URINALYSIS TUBE 02/04/2013 02/04/2013 6:2 4 PM CDT Narrative [facility] ([facility]) - 02/05/2013 4:21 PM CDT Performed at: [address] [place] [address] [id number] Roving Hauler: Nehemias Rosas PhD, Phone: [phone] Irasema Lawson MD LAB - MICROBI OLOGY ORDERABLES [facility]) * (ABNORMAL) CULTURE AEROBIC (12/02/2012 12:00 AM CDT) Only the most recent of3 resultswithin the time period is included. Pathologist [facility] [place] Aerobic Bacterial Culture Final report(A) [facility] ([facility]) Result 1 (A) [facility] ([facility]) Comment: Methicillin - resistant Staphylococcus aureus Moderate growth Based on resistance to oxacillin this isolate would be resistant to all currently available beta-lactam antimicrobial agents, with the exception of the newer cephalosporins with anti-MRSA activity, such as Ceftaroline Antimicrobial Susceptibility [facility] ([facility]) Comment: S = Susceptible; I = Intermediate; [...] Right) 12/02/2012 12/02/2012 8:25 PM CDT Narrative [facility] ([facility]) - 12/06/2012 11:20 AM CDT Right leg Specimen Type->Skin Performed at: [address] [place] [address] [id number] Roving Hauler: Nehemias Rosas PhD, Phone: [phone] Lane Cortes MD LAB - MICROBIOLOGY O RDSANDRO Performing Organization Address [facility] de Phone Number [facility] ([facility]) * GRAM STAIN SMEAR (12/02/2012 12:00 AM CDT) Gram Stain Result Final report [facility] ([facility]) Result 1 [facility] ([facility]) Comment:No white blood cells seen. Result 2 [facility] ([facility]) Comment:Moderate number of g penelope positive cocci. Result 3 [facility] ([facility]) Comment:Few gram negative ro ds. 12/02/2012 12/02/2012 8:2 5 PM CDT Narrative [facility] ([facility]) - 12/06/2012 11:20 AM CDT Performed at: [address] [place] [address] [id number] Roving Hauler: Nehemias Rosas PhD, Phone: [phone] Lane Cortes MD LAB - MICROBIOLOGY O JOHN Performing Organization Address [facility] Co de Phone Number [facility] ([facility]) * CULTURE ANAEROBE (12/02/2012 12:00 AM CDT) Only the most recent of2 resultswithin the time period is included. Anaerobic Culture Final report [facility] ([facility]) Result 1 [facility] ([facility]) Comment:No anaerobic growth in 72 hours. 12/02/2012 12/02/2012 8:2 5 PM CDT Narrative [facility] ([facility]) - 12/06/2012 11:20 AM CDT Performed at: [address] [place] [address] [id number] Roving Hauler: Nehemias Rosas PhD, Phone: [phone] Lane Cortes MD LAB - MICROBIOLOGY O JOHN Performing Organization Address City/[facility]/ZIP Co de Phone Number [facility] * REF LAB-SPECIMEN STATUS REPORT (10/21/2012 12:00 AM CDT) Specimen Status [facility] ([facility]) Comment: Tracking Missed Test Written Authorization Written Authorization Written Authorization Received. Authorization received from PER ORIGINAL REQUISITION 10-22-2012 Logged by Giuliana Nesbitt 10/21/2012 10/22/2012 1:3 3 PM CDT Narrative [facility] ([facility]) - 10/27/2012 3:07 PM CDT Performed at: [address] [place] [address] [id number] Roving Hauler: Nehemias Rosas PhD, Phone: [phone] Lane Cortes MD LAB - CHEMISTRY ORDGricelda RABPARESH Performing Organization Address [facility] de Phone Number [facility] * CULTURE FUNGUS SKIN HAIR NAILS (10/21/2012 12:00 AM CDT) Culture Dermatophyte Only [facility] Comment:No dermatophytes rec overed. 10/21/2012 10/21/2012 8:5 9 PM CDT Narrative [facility] (BERTA) - 11/13/2012 6:23 AM CDT Performed at: [address] [place] [id number] Roving Hauler: Nehemias Rosas PhD, Phone: [phone] Lane Cortes MD LAB - MICROBIOLOGY O JOHN Performing Organization Address City/[facility]/ZIP Co de Phone Number [facility] (BEAKER) * IGOR W REFLEX DS-DNA+NASIMA+SSJ (10/09/2012 8:01 AM CDT) Pathologist [facility] [place] IGOR Direct Negative Negative [facility] (BEAKER) 10/09/2012 8:01 AM CDT 10/09/2012 1:03 PM CDT Narrative [facility] [facility] (BEAKER) - 10/11/2012 6:24 AM CDT Performed at: [address] [place] [id number] Roving Hauler: Nehemias Rosas PhD, Phone: [phone] Lane Cortes MD LAB - SEROLOGY ORDER RUSTY [facility] (BEAKER) * (ABNORMAL) URINALYSIS REFLEX TO MICROSCOPIC NO CULTURE (10/09/2012 8:01 AM CDT) Pathologist [facility] [place] Specific Jamieson 1.027 1.005 - 1.030 [facility] (BEAKER) pH Urine 6.0 5.0 - 7.5 [facility] (BEAKER) Color UA Yellow Yellow [facility] (BEAKER) Appearance Clear Clear [facility] (BEAKER) Leukocyte Esterase Negative Negative [facility] (BEAKER) Protein UA 1+(A) Negative/Tra ce [facility] (BEAKER) Glucose UA Negative Negative [facility] (BEAKER) Ketones Negative Negative [facility] (BEAKER) Blood UA Negative Negative [facility] (BEAKER) Bilirubin Negative Negative [facility] (BEAKER) Urobilinogen Semi-Qn 0.2 0.0 - 1.9 mg/dL [facility] (BEAKER) Nitrite UA Negative Negative [facility] (BEAKER) Microscopic Examination See below: [facility] (BEAKER) Urine specimen (specimen) (Urine, unspecified source) 10/09/2012 8:01 AM CDT 10/09/2012 1:03 PM CDT Narrative [facility] (BEAKER) - 10/11/2012 6:24 AM CDT Performed at: 01 - [address] [id number] Roving Hauler: Nehemias Rosas PhD, Phone: [phone] Lane Cortes MD LAB - URINALYSIS ORD ERABLES [facility] * G6PD QUANTITATIVE (10/09/2012 8:01 AM CDT) Pathologist [facility] [place] G-6-PD Quantitative 232 146 - 376 U/10E12 RBC [facility] ([facility]) 10/09/2012 8:01 AM CDT 10/09/2012 1:03 PM CDT Narrative [facility] (BERTA) - 10/11/2012 6:24 AM CDT Performed at: 02 - [address] [id number] Roving Hauler: Carlos Morse MD, Phone: [phone] Lane Cortes MD LAB - CHEMISTRY ORDE RABPARESH [facility] ([facility]) Care Teams Heel Shaver Relationship Specialty Start Date End Date Roberto Carlos Birmingham DO [address] [place] [address] PCP - General Internal Medicine 06/01/16
--- OUTSIDE RECORDS SUMMARY | 2024-09-29 17:43 | XMS_ITS | Clinical Summary ---
Author Organization [facility] Address [address] [place] [address] Care Team Providers Care Entry Analyst Name Role Phone Napoleon Gutierrez DO Primary Care Provider [phone] Allergies Active Allergy Reactions Criticality Noted Date [...] on file Legal Sex Female 4:21 AM MODEL HOME SALES GREETER Gender Identity Not on file Sexual Orientation Not on file Last Filed Vital Signs Vital Sign Reading Time Taken Comments Blood Pressure 142/79 06/16/2023 3:30 PM MODEL HOME SALES GREETER Pulse 57 06/16/2023 3:30 PM MODEL HOME SALES GREETER Temperature 37.1 C (98.7 F) 06/16/2023 11:29 AM MODEL HOME SALES GREETER Respiratory Rate 20 06/16/2023 3:30 PM MODEL HOME SALES GREETER Oxygen Saturation 99% 06/16/2023 3:30 PM MODEL HOME SALES GREETER Inhaled Oxygen Concentration - - Weight 74.8 kg (165 lb) 06/16/2023 11:29 AM MODEL HOME SALES GREETER Height 152.4 cm (5') 06/16/2023 11:29 AM MODEL HOME SALES GREETER Body Mass Index 32.22 06/16/2023 11:29 AM MODEL HOME SALES GREETER Plan of Treatment Health Maintenance Due Date [...] compared to prior imaging studies performed at [facility] on 02/03/2021, 02/17/2022 and 05/10/2023. There [...] compared to prior imaging studies performed at [facility] on 02/03/2021, 02/17/2022 and 05/10/2023. There are scattered areas of fibroglandular density. There is no suspicious abnormality in either breast. Impression: There is no mammographic evidence of malignancy. Annual screening mammography is recommended. OVERALL FINAL ASSESSMENT: BI-RADS CATEGORY 1: Negative. us Self Screening Mammogram IMG MAMMO PROCEDURES Fi nal Result from Last 3 Months or Most Recently Relevant to Health Maintenance Insurance [employer] [facility] Care Teams Entry Analyst Relationship Specialty Start Date End Date Napoleon Gutierrez DO [address] [facility] [address] [place], [place] [id number] PCP - General Internal Medicine 02/20/24
--- OUTSIDE RECORDS SUMMARY | 2024-09-29 17:43 | XMS_ITS | Encounter Summary ---
Author Organization [facility] Address [address] [facility] [place] [address] Care Team Providers Care Senior Systems Engineer Name Role Phone Krisskandi Roberto Carlos Maia CARMICHAEL Primary Care Provider Reason for Visit * Reason Onset Date Comments Question 09/29/2024 Encounter Details Date Type Department Care Team (Late st Contact Info) Description 09/29/2024 Telephone [facility] - Centralized Scheduling [address] [place] [address] Inna Trammell MD [facility] [place] [address] Question Social History Tobacco Use [...] Visit [facility] - Dermatology [address] [facility], [place] [address] Inna Trammell MD [address] [place] [address] [place] [address] documented as of this encounter Visit Diagnoses Not on filedocumented in this encounter Care Teams Senior Systems Engineer Relationship Specialty Start Date End Date Roberto Carlos Birmingham DO [address] [facility] [address] [facility] [address] [place] [address] PCP - General Internal Medicine 06/01/16 documented as of this encounter
--- OUTSIDE RECORDS SUMMARY | 2024-09-29 17:44 | XMS_ITS | Referral Summary ---
Author Organization [facility] Address [address] [facility] [place] [address] Care Team Providers Care Infant Toddler Lead Teacher Name Role Phone Roberto Carlos Birmingham Primary Care Provider [phone] Source Comments [facility],non-owned Affiliates and Associated Physician Practices is amultiple site organization consisting of ambulatory clinics and hospital sitesin [place], [place], [place] and [place]. This disclosure is being madepursuant to the Care Everywhere program and may not contain all information available regarding this patient. Last updated 18.[facility] [employer] Encounters Date Type Department Care Team Description 09/29/2024 Telephone [facility] - Centralized Scheduling [address] [place] [address] Inna Trammell MD Question from Last 3 Months Allergies Active Allergy Reactions Criticality Noted Date Comments Sulfa Drugs Nausea and/or Vomiting 08/24/2019 Early adulthood allergy. Medications * Be aware that medications may not be up to date on this document. Alwaysverify current medications with the patient. Medication Sig Dispensed Refills Start Date End Date Status vitamin D, ergocalciferol, (Drisdol) 1.25 MG (57931 UT) capsule 05/14/2023 Active risankizumab-rzaa (Skyrizi Pen) [...] Comments Blood Pressure 136/84 08/15/2020 3:14 PM AUTOMATIC BANDSAW TENDER Pulse 67 08/15/2020 3:14 PM AUTOMATIC BANDSAW TENDER Temperature 36.8 C (98.2 F) 08/15/2020 3:14 PM AUTOMATIC BANDSAW TENDER Respiratory Rate 17 08/15/2020 3:14 PM AUTOMATIC BANDSAW TENDER Oxygen Saturation 98% 08/15/2020 3:14 PM AUTOMATIC BANDSAW TENDER Inhaled Oxygen Concentration - - Weight 79.8 kg (176 lb) 08/15/2020 3:14 PM AUTOMATIC BANDSAW TENDER Height 152.4 cm (5') 08/15/2020 3:14 PM AUTOMATIC BANDSAW TENDER Body Mass Index 34.37 08/15/2020 3:14 PM AUTOMATIC BANDSAW TENDER Plan of Treatment Upcoming Encounters Date Type Department Care Team (Late st Contact Info) Description 11/18/2024 1:30 PM CDT Office Visit [facility] - Dermatology [address] [facility], [place] [address] Inna Trammell MD [address] [facility] [place] [place] [address] Procedures Procedure Name Priority Date/Time Associated Diagnosis Comments HEPATITIS C ANTIBODY Routine 08/20/2023 5:15 PM AUTOMATIC BANDSAW TENDER Arthritis from Last 3 Months or Most Recently Relevant to Health Maintenance Results * HEPATITIS C ANTIBODY (08/20/2023 5:15 PM AUTOMATIC BANDSAW TENDER) Hepatitis C Antibody Non-react octavio Non-reac tive 08/20/2023 6:55 PM AUTOMATIC BANDSAW TENDER [facility] Comment:Hepatitis C Antibody screen indicates [...] Lab Venipuncture / Unknown 08/20/2023 5:15 PM AUTOMATIC BANDSAW TENDER 08/20/2023 6:22 PM AUTOMATIC BANDSAW TENDER Inna Trammell MD LAB - CHEMISTRY VINICIO CHAIDEZ [facility] Organization Address City/State/ZIP Co de Phone Number [facility] [address] [place] [address], [facility] [phone] from Last 3 Months or Most Recently Relevant to Health Maintenance Care Teams Infant Toddler Lead Teacher Relationship Specialty Start Date End Date Roberto Carlos Birminhgam DO [address] [facility] [address] [place], [place] [id number] PCP - General Internal Medicine 06/01/16
--- OUTSIDE RECORDS SUMMARY | 2024-09-29 17:44 | XMS_ITS | Clinical Summary ---
Author Organization [facility] Address [address] [place] [address] Care Team Providers Care Battery Wrecker Operator Name Role Phone Roberto Carlos Birmingham DO Primary Care Provider Source Comments [facility],non-owned Affiliates and Associated Physician Practices is amultiple site organization consisting of ambulatory clinics and hospital sitesin [place], [place], [place] and [place]. This disclosure is being madepursuant to the Care Everywhere program and may not contain all information available regarding this patient. Last updated 18.[facility] Allergies Active Allergy Reactions Criticality Noted Date Comments Sulfa Drugs Nausea and/or Vomiting 08/24/2019 Early adulthood allergy. Medications * Be aware that medications may not be up to date on this document. Alwaysverify current medications with the patient. Medication Sig Dispensed Refills Start Date End Date Status vitamin D, ergocalciferol, (Drisdol) 1.25 MG (34605 UT) capsule 05/14/2023 Active risankizumab-rzaa (Skyrizi Pen) [...] Telephone [facility] - Centralized Scheduling [address] [place] [address] Inna Trammell MD Question from Last [...] Comments Blood Pressure 136/84 08/15/2020 3:14 PM ACCOUNTANT TAX Pulse 67 08/15/2020 3:14 PM ACCOUNTANT TAX Temperature 36.8 C (98.2 F) 08/15/2020 3:14 PM ACCOUNTANT TAX Respiratory Rate 17 08/15/2020 3:14 PM ACCOUNTANT TAX Oxygen Saturation 98% 08/15/2020 3:14 PM ACCOUNTANT TAX Inhaled Oxygen Concentration - - Weight 79.8 kg (176 lb) 08/15/2020 3:14 PM ACCOUNTANT TAX Height 152.4 cm (5') 08/15/2020 3:14 PM ACCOUNTANT TAX Body Mass Index 34.37 08/15/2020 3:14 PM ACCOUNTANT TAX Plan of Treatment Upcoming Encounters Date Type Department Care Team (Late st Contact Info) Description 11/18/2024 1:30 PM CDT Office Visit [facility] - Dermatology [address] [facility], [place] [address] Inna Trammell MD [address] [facility] [place] [address] Health Maintenance Due Date Last [...] HEPATITIS C ANTIBODY Routine 08/20/2023 5:15 PM ACCOUNTANT TAX Arthritis from Last 3 Months or Most Recently Relevant to Health Maintenance Results * HEPATITIS C ANTIBODY (08/20/2023 5:15 PM ACCOUNTANT TAX) Hepatitis C Antibody Non-react octavio Non-reac tive 08/20/2023 6:55 PM ACCOUNTANT TAX [facility] Comment:Hepatitis C Antibody screen [...] Lab Venipuncture / Unknown 08/20/2023 5:15 PM ACCOUNTANT TAX 08/20/2023 6:22 PM ACCOUNTANT TAX Inna Trammell MD LAB - CHEMISTRY VINICIO CHAIDEZ [facility] [address] [phone], [facility] [phone] from Last 3 Months or Most Recently Relevant to Health Maintenance Care Teams Battery Wrecker Operator Relationship Specialty Start Date End Date Roberto Carlos Birmingham DO [address] [facility] [address] [place] [address] PCP - General Internal Medicine 06/01/16
--- OUTSIDE RECORDS SUMMARY | 2024-09-29 17:44 | XMS_ITS | Clinical Summary ---
Author Organization [facility] Address [address], [place] [address] Phone Care Team Providers Care V Belt Curer Name Role Phone Unavailable Primary Care Provider [...]
[2024-09-29 18:24] VITALS: BP 130/76; PULSE 68; RESP 18; TEMP 36.9; O2SAT 100
== END 2024-09-29 18:26 | disposition home or self-care (01) ==
PROVIDERS: Emergency Provider Emergency Medicine; PCP Internal Medicine
DX: S70.02XA Contusion of left hip, initial encounter (principal); M25.462 Effusion, left knee; Z98.1 Arthrodesis status; Z87.891 Personal history of nicotine dependence; M17.12 Unilateral primary osteoarthritis, left knee; Z79.620 Long term (current) use of immunosuppressive biologic; Z79.899 Other long term (current) drug therapy; W19.XXXA Unspecified fall, initial encounter
CPT/HCPCS: 73502; 73562; 93971; 99284

== ENCOUNTER 2024-11-10 13:33 | Outpatient (CLI) | payer BC, SELFPAY ==
--- NOTE | ~2024-11-10 | XR_ITS ---
CHEST RADIOGRAPH, PA AND LATERAL CLINICAL HISTORY: R05.9 - Cough, unspecified . COMPARISON: None available TECHNIQUE: PA and lateral views of the chest. FINDINGS The cardiomediastinal silhouette is unremarkable. The lungs are clear. IMPRESSION: No focal infiltrate or effusion. Reviewed, dictated and finalized at location A.
== END 2024-11-10 13:34 | disposition home or self-care (01) ==
LOC: MICIMG 13:34
PROVIDERS: PCP Internal Medicine; Visit Provider Internal Medicine
DX: R05.9 Cough, unspecified (principal)
CPT/HCPCS: 71046

== ENCOUNTER 2025-03-12 17:04 | Outpatient (CLI) | payer BC, SELFPAY ==
[2025-03-12 17:22] LABS: Hematocrit 38.2 % (37.0-47.0); Hemoglobin 12.6 g/dL (12.0-15.0)
== END 2025-03-12 17:05 | disposition home or self-care (01) ==
LOC: ANHLAB 17:06
PROVIDERS: PCP Internal Medicine; Visit Provider Obstetrics & Gynecology
DX: N92.6 Irregular menstruation, unspecified (principal)
CPT/HCPCS: 36415; 85014; 85018

== ENCOUNTER 2025-03-20 02:12 | Day surgery (SDC) | payer BC, SELFPAY ==
--- OUTSIDE RECORDS SUMMARY | 2016-04-24 04:15 | XMS_ITS | Continuity of Care Document ---
Author Organization [facility] Address [address] [place] [address] Phone Care Team Providers Care Rack Maker Name Role Phone Symone Hagen Unavailable Unavai lable Allergies, Adverse Reactions, Alerts Substance Reaction Status Criticality Sulfa (Sulfonamide Antibiotics) Unknown Active No Information Penicillins Unknown Active No Information Procedures Procedure Date X-ray exam shoulder minimum 2 views Depo Medrol Methylprednisolone 40 MG inj Asp/inject major joint or bursa w/o US g uidance Office/outpatient visit,est, [facility] 2015 Global/Postop followup visit Meniscectomy Med OR Lat Office/outpatient visit,est, mod 2015 MRI lower extrm joint, w/o contrast Office/outpatient visit,[facility], [facility] 2015 Advance Directives Directive Yes / No Effective Date File Name No Information Encounters Encounter Description Practice Location Reason(s) For Visit Diagnoses Date Provider Providers Copied on Encounter Office/outpat ient visit,est, mod [facility], [address] [facility] [address] [facility], [place], [place], [id number], [place] tel:[phone] [facility] right shoulder pain (chief complaint) Pain in right shoulderPrimary osteoarthritis, right shoulder 0-201 6 Richard Ashby. [address] [facility], [address], [place], [place], [id number] , [place]. tel:[phone] [facility], [address] [facility] [address], [place], [id number], [place] [phone] [facility] post op right knee (chief complaint) Pain in right knee 6 Rocky Stockton. [address] [facility], [facility] [address], [place], [place], [id number] , [place]. tel: [phone] [facility], [address] [facility] [address], [place], [place], [id number], [place] tel:[phone] [facility] Oth meniscus derangements, unsp medial meniscus, right knee 6 Rocky Stockton. [address] [facility] [address], [place], [place], [id number] , [place]. tel: [phone] Office/outpat ient visit,[facility], [facility], [address], [id number], [place] tel:[phone] [facility] right knee - test results (chief complaint) Oth meniscus derangements, unsp medial meniscus, right knee 6 Rocky Stockton. [address] [facility] [address], [place], [place], [id number] , [place]. tel: [phone] [facility], [address], [id number], [place] [phone] [facility] Oth meniscus derangements, unsp medial meniscus, right knee 6 [facility]. [address] [facility], [address], [place], [place], [address] , [place]. tel: [phone] Referring Provider: Mahin Yi, [address] [facility] [address], [place], [address] . tel:[phone] Office/outpat ient visit,[facility], [facility], [address] [address], [place], [place], [id number], [place] tel:[phone] [facility] right knee (chief complaint) Pain in right kneeOther meniscus derangement of medial meniscus of rt knee Rocky Stockton. [address] [facility], [address], [place], [place], [address] , . tel: [phone] Family History Family Member Type Diagnosis Age At Onset Problem (finding) Family history of alcoh olism Problem (finding) Family history of Diabe philippe mellitus Problem (finding) Family history of Cance r, unknown Problem (finding) Family history of hyper tension Immunizations Vaccine Date Status Comments Flu (split) (3 yrs or older) administered Source: Other Provider Payers Payer name Insurance type Covered libertarian ID Authortiaraa radha(s) [employer] [facility] [id number] Social History Type Description Quantity Date Captured Comments Alcohol Use Details Caffeine Use Details Unknown Tobacco Use Status No Information Smoking Status Former smoker Non-Smoking Tobacco Use Details : No Details Available : No Details Available Sex Female Vital Signs Date / Time: Height Weight BMI Pulse Rate Blood Pressure Temperature Respiratory Rate Body Surface Area Head Circumference Head Circ. Percentile Wt./Melecio. Percentile BMI percentile Pulse Ox Inhaled Ox 9:45 AM 60.00 in 92.986 kg (205.00 lbs) 40.0 4 kg/m eter (2) Chief Complaint And Reason For Visit From encounter dated '04/24/2016 09:15'. right shoulder pain (chief complaint). Description: Ms Chiu is a 45 year old female who complains of right shoulder pain. She presents with pain and decreased ROM on the right side. She states that the symptoms have been acute non-traumatic and began 3 months ago. She started having shoulder pain after her knee surgery. She was using her arm to push herself out of the bed and chairs. The symptomsoccur constantly. The problem is unchanged. Currently the patient states that the symptoms are mild-moderate. The pain is described as sharp and aching. The symptoms occur continuously. The patient is experiencing pain in the following location: upper arm on the right side. She rates her worst painas 8/10. She rates her current pain as 7/10. The symptoms are aggravated by no specific activity. Janet states that the symptoms are relieved by no specific activity. In addition to right shoulder pain the patient is also experiencing decreased mobility, difficulty initiating sleep and occasionally she has numbness and tingling in her hand. The patient has had a previous none. Nsaids cause significant gi upset. She has had no previous treatment. Patient has not had any pertinent therapy for this condition. Patient has had no prior surgeries. There were no previous episodes. She experienced no previous injury. Reason For Referral Reason For Referral No Information Plan Of Treatment Date Type Action Status Referral Ordered: X-ray exam shoulder minimum 2 views ordered Referral Ordered: MRI lower extrm joint, w/o contrast RT knee Appointment date/timeframe: 12/31/2015 ordered Patient Education Body Mass Index: After Your Visit completed History Of Present Illness Encounter Date Complaint History Of Prese nt Illness right shoulder pain Ms Chiu is a 45 year old female who complains of right shoulder pain. She presents with pain and decreased ROM on the right side. She states that the symptoms have been acute non-traumatic and began 3 months ago. She started having shoulder pain after her knee surgery. She was using her arm to push herself out of the bed and chairs. The symptoms occur constantly. The problem is unchanged. Currently the patient states that the symptoms are mild-moderate. The pain is described as sharp and aching. The symptoms occur continuously. The patient is experiencing pain in the following location: upper arm on the right side. She rates her worst pain as 8/10. She rates her current pain as 7/10. The symptoms are aggravated by no specific activity. Janet states that the symptoms are relieved by no specific activity. In addition to right shoulder pain the patient is also experiencing decreased mobility, difficulty initiating sleep and occasionally she has numbness and tingling in her hand. The patient has had a previous none. Nsaids cause significant gi upset. She has had no previous treatment. Patient has not had any pertinent therapy for this condition. Patient has had no prior surgeries. There were no previous episodes. She experienced no previous injury. post op right knee Criss comes b ack into the office following right knee scope PMM which was done on 01-24-16. right knee - test results Janet comes back into the office to go over the results of her MRI. right knee Janet is here t tej to discuss right knee pain. She states she was walking and it started to hurt. She heard a pop. It hurts on the medial back side of knee. She had xrays on 11-22-15 t [facility]. These xrays are now in our PACS. She states climbing stairs and going downstairs is painful. She states this started on or around 11-19-15. Functional Status Date Functional Assessmen t No Information Instructions Date Instruction Additional Infor mation No Information Assessments Type Assessment Date assessment Pain in right shoulder 16 impression assessment Primary osteoarthritis, right sh oulder impression Performed right suba cromial cortisone injection today. Avoid nsaids. If not improving, consider PT. Follow up prn. Patient Care Teams Name Effective Dates (start - stop) Status Members No Information
--- OUTSIDE RECORDS SUMMARY | 2022-06-01 09:00 | XMS_ITS | Continuity of Care Document ---
Author Organization [facility] Address [address] [place] [address] Phone Care Team Providers Care Centrifugal Wax Molder Name Role Phone Александр DUTTON, Ryland Unavailable Unavailable Procedures Procedure Date INJ SPINE CERV/THOR W/ IMAGING GUIDANCE SURGICAL TRAY LOW OSMOLAR CONTRAST (200 TO 299 MG IODI NE) Injection, Triamcinolone Acetonide, 10mg Advance Directives Directive Yes / No Effective Date File Name No Information Encounters Encounter Description Practice Location Reason(s) For Visit Diagnoses Date Provider Providers Copied on Encounter [facility], [address], [place], [place], [address], [place] tel:[phone] [facility] No Information Александр Marcelino. [address] , [place], [place], [address], [place]. tel:[phone] Referring Provider: Ramon Casey DO, [address], [place], [address]. tel:[phone] Family History Family Member Type Diagnosis Age At Onset No Information Payers Payer name Insurance type Covered democrat ID Authoriza tion(s) [facility] ACCESS BL [id number] Social History Type Description Quantity Date Captured Comments Sex Female Smoking Status No Information Chief Complaint And Reason For Visit No Information Reason For Referral Reason For Referral No Information History Of Present Illness Encounter Date Complaint History Of Prese nt Illness No Information Functional Status Date Functional Assessmen t No Information Instructions Date Instruction Additional Infor mation No Information Assessments Type Assessment Date No Information Patient Care Teams Name Effective Dates (start - stop) Status Members No Information
[2025-03-11 13:21] VITALS: BMI 37.2
--- NOTE | 2025-03-11 13:22 | PC.NURSE ---
Report to the Outpatient Waiting Room, entrance under the green pavilion located off [facility], at time _0915_ on date _[id number]_. Planned Procedure Time: _1115_.? Time changes happen often and if your time is changed the preop area will call you the afternoon before. - You and your visitor will be asked to self-screen and do not enter if you have any COVID symptoms. Please call surgeon if you need to reschedule. - A mask is optional within the hospital at this time. Patients may have clear liquids (water, carbonated beverages, clear teas, apple juice) until 3 hours prior to surgery with a maximum of 20 ounces. - No food from midnight until time of surgery and no smoking, or chewing tobacco (or any form of nicotine). No chewing gum, candy or mints. Take only the following medications with a SIP of water on the morning of surgery: ___None____ DO NOT STOP ANY OF YOUR OTHER PRESCRIPTION MEDICATIONS PRIOR TO SURGERY EXCEPT THE FOLLOWING Hold all vitamins and supplements for 3 days per anesthesiologist. Medications to discontinue per physician Date to take last bfsq____[id number]___ Please no make-up, nail [place], hairspray, perfume, deodorant, or body powder the day of surgery.? No jewelry (including any body piercings) or valuables the day of surgery, leave them at home.? Please take a shower or bath the night before, or the morning of, surgery with an antibacterial soap.? Wear comfortable, loose fitting clothing.? - Jewelry must be removed prior to entering the operating room.? Rings and piercings that are not removed may be cut off. - The hospital will not accept responsibility for valuables.? - Please leave all valuables, including medications, at home the day of surgery. If you are going home after surgery, a licensed special client bus driver must drive you home.? - NO public transportation without another adult if you receive anesthesia. - We recommend that an adult stay with you for 24 hours following discharge. - We also recommend that you do not drive, make important decision, drink alcoholic beverages, or take any drugs that were not prescribed by your health care provider for at least 24 hours after your discharge time. Follow any additional instructions given to you from your surgeon. Telephone instructions given to __Kelly___and asked if any additional questions and then verbalized understanding. Patient advised to call surgeon office or pre surgery nurse liaison [phone] if any additional questions.
--- NOTE | 2025-03-18 12:45 | PM.IMHP ---
H&P: HPI History of Present Illness Date/Time: 03/18/25 12:45 Chief Complaint: Postmenopausal bleeding Narrative: 54-year-old female bleeding thickened endometrium on ultrasound. She will undergo hysteroscopy dilatation curettage. Risks and benefits reviewed including not exclusive , aspiration, bleeding, transfusion, perforation injury to bowel, bladder, ureters, or other internal organs with need for open laparotomy. She received the ACOG handout entitled hysteroscopy as well as dilatation curettage respectively. She had all questions answered. She asked to proceed Review of Systems Review of Systems: All systems reviewed & are unremarkable except as noted in HPI and below PMFSH Past Medical History Medical History Cervical vertebral fusion Torn meniscus Colon cancer screening Obesity (BMI 30-39.9) Surgical History Surgical History H/O arthroscopic knee surgery History of bunionectomy Family History Family History Mother Family history of liver disease, Onset Age: 46 Patient's mother is Father Family history of diabetes mellitus in first degree relative, Onset Age: 64 Patient's father is Sibling , pulmonary edema No problems noted. Sibling No problems noted. Social History Social History Smoking packs per day: 1 Smoking cigarettes per day: 20.0 Years smoked: 12 Smoking pack-years: 12.00 Smoking status: Former smoker Tobacco type: cigarettes Second hand tobacco smoke exposure: No Smoking end date: 03/11/05 Alcohol intake: current Drinks per week: 6 Substance use: never Substance use type: does not use Do You Feel Safe in your Home?: Yes Lack of Transportation: No Lack of Food: Never True Current Housing: I Have Housing Concerned About Future Housing: No Difficulty Paying Gas/Electric Bills: No Difficulty Paying for Meds: YES Currently Unemployed: No Education: High School Diploma/GED Difficulty w/ Childcare or Family Care: No Living arrangements: with family Occupation/Education: occupation 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 Gender identity (if verbalized by the patient): Female Spiritual care concerns: No Meds Home Medications and Allergies Home Medications ?Medication ?Instructions ?Recorded ?Confirmed ?Type ergocalciferol (vitamin D2) 1,250 1,250 mcg PO WEEKLY 03/23/21 03/11/25 History mcg (50,000 unit) capsule risankizumab-rzaa 150 mg/mL 150 mg subcut ONCE 09/05/23 03/11/25 History subcutaneous pen injector (Skyrizi) apremilast 30 mg tablet (Otezla) 30 mg PO BID 03/11/25 03/11/25 History ascorbic acid (vitamin C) 500 mg 500 mg PO DAILY 03/11/25 03/11/25 History tablet (C-500) estradiol-norethindrone acet 1 1 tablet PO DAILY 03/11/25 03/11/25 History mg-0.5 mg tablet (Mimvey) sour chauhan extract 1,000 mg 1,000 mg PO DAILY 03/11/25 03/11/25 History capsule (Tart Chauhan Extract) turmeric 400 mg capsule 1,000 mg PO DAILY 03/11/25 03/11/25 History Allergies Allergy/AdvReac Type Severity Reaction Status Date / Time Sulfa (Sulfonamide Allergy Mild Unknown Verified 03/11/25 13:05 Antibiotics) Exam Narrative: APPEARANCE: Well appearing, no pain, no distress, well-nourished. HEAD: normocephalic, atraumatic. EYES: PERRLA/EOMI, conjunctivae clear. NOSE: Normal no drainage EARS:TMS clear with good light reflex. THROAT: Pharynx clear, no exudate. NECK: Supple. No adenopathy, no masses. RESPIRATORY: Airway patent, respirations nonlabored. Clear to auscultation bilaterally, no rales, rhonchi, wheezing. CARDIOVASCULAR: Regular rate and rhythm without murmurs rubs or gallops. ABDOMINAL: Soft, nontender, nondistended, normal bowel sounds MUSCULOSKELETAL: Left lateral hip and left lateral thigh tenderness to palpation, mild left knee effusion with no ecchymosis NEURO: Alert. Cranial nerves II through XII intact. Good gait. Good coordination SKIN: Warm, dry. Normal Color Assessment and Plan Assessment and plan (1) Postmenopausal bleeding: Code(s): N95.0 - Postmenopausal bleeding Status: Acute Plan Proceed with hysteroscopy/dilatation
--- OUTSIDE RECORDS SUMMARY | 2025-03-20 02:15 | XMS_ITS | Continuity of Care Document ---
Author Organization [facility] Address [address] [address] Insurance Providers Payer Plan Claims Address Claims Phone Policy Number Group Number Relation Employer Guarantor Name Guarantor Guarantor Address Guarantor Phone Salima Fournier [address], [place] [address] tel:[phone] Self Janet Schaefer Aram [address] [place] [address] [id number] Salima Fournier [address], [place] [address] tel:[phone] Self Janet Chiu [address] [place] [address] [id number] Salima Fournier [address], [place] [address] tel:[phone] Self Janet Chiu [address] [place] [address] [phone] Problems Unknown Problems Results Test Result Date/Time Value / Unit Interp. Refere kse Range Comp. Metabolic Panel (14)[3 ] Collected: 10/20/2024 02:55 PM Specimen Received: 10/20/2024 05:00 AM Source: [facility] Glucose [[id number]] 10/21/2024 11:28 AM 110 mg/dL H 70-99 mg/dL BUN [[id number]] 10/21/2024 11:31 AM 13 mg/dL 6-2 4 mg/dL Creatinine [[id number]] 10/21/2024 11:32 AM 0.51 mg/dL L 0.57-1.00 mg/dL eGFR [665808] 10/21/2024 11:32 AM 111 mL/min/1.73 >59 mL/min/1.73 BUN/Creatinine Ratio [184416] 10/21/2024 11:32 AM 25 H 9-23 Sodium [132882] 10/21/2024 11:23 AM 142 mmol/L 134-144 mmol/L Potassium [774744] 10/21/2024 11:24 AM 4.4 mmol/L 3.5-5.2 mmol/L Chloride [194517] 10/21/2024 11:23 AM 105 mmol/L 96-106 mmol/L Carbon Dioxide, Total [923384] 10/21/2024 11:30 AM 25 mmol/L 20-29 mmol/L Calcium [389606] 10/21/2024 11:24 AM 9.3 mg/dL 8.7-10.2 mg/dL Protein, Total [902413] 10/21/2024 11:31 AM 6.7 g/dL 6.0-8.5 g/dL Albumin [[id number]] 10/21/2024 11:30 AM 4.3 g/dL 3.8-4.9 g/dL Globulin, Total [588390] 10/21/2024 11:31 AM 2.4 g/dL 1.5-4.5 g/dL Bilirubin, Total [184533] 10/21/2024 11:31 AM 0.4 mg/dL 0.0-1.2 mg/dL Alkaline Phosphatase [684920] 10/21/2024 11:31 AM 60 IU/L 44-121 IU/L AST (SGOT) [484834] 10/21/2024 11:31 AM 18 IU/L 0-40 IU/L ALT (SGPT) [386764] 10/21/2024 11:33 AM 12 IU/L 0-32 IU/L Lipid Panel[285012] Collected: 10/20/2024 02:55 PM Specimen Received: 10/20/2024 05:00 AM Source: [facility] Cholesterol, Total [[id number]] 10/21/2024 12:09 PM 259 mg/dL H 100-199 mg/d L Triglycerides [007191] 10/21/2024 12:07 PM 50 mg/dL 0-149 mg/dL HDL Cholesterol [609222] 10/21/2024 12:12 PM 131 mg/dL >39 mg/dL VLDL Cholesterol Leon [[id number]] 10/21/2024 12:12 PM 8 mg/dL 5-40 mg/dL LDL Chol Calc (RUST) [336084] 10/21/2024 12:12 PM 120 mg/dL H 0-99 mg/dL Hemoglobin A1c[[id number]] Collected: 10/20/2024 02:55 PM Specimen Received: 10/20/2024 05:00 AM Source: [facility] Hemoglobin A1c [182366] 10/21/2024 10:54 AM 5.2 % 4.8-5.6 % . Prediabetes: 5.7 - 6.4 Courtney betes: >6.4 Glycemic control for adults with diabetes: 7.0 Lipid Panel[[id number]] Collected: 07/25/2023 03:48 PM Specimen Received: 07/25/2023 05:00 AM Source: [facility] Cholesterol, Total [[id number]] 07/26/2023 06:07 AM 274 mg/dL H 100-199 mg/d L Triglycerides [302330] 07/26/2023 06:01 AM 52 mg/dL 0-149 mg/dL HDL Cholesterol [533083] 07/26/2023 06:02 AM 136 mg/dL >39 mg/dL VLDL Cholesterol Leon [188604] 07/26/2023 06:07 AM 8 mg/dL 5-40 mg/dL LDL Chol Calc (RUST) [046178] 07/26/2023 06:07 AM 130 mg/dL H 0-99 mg/dL Hemoglobin A1c[[id number]] Collected: 07/25/2023 03:48 PM Specimen Received: 07/25/2023 05:00 AM Source: [facility] Hemoglobin A1c [[id number]] 07/26/2023 05:27 AM 5.0 % 4.8-5.6 % . Prediabetes: 5.7 - 6.4 Courtney betes: >6.4 Glycemic control for adults with diabetes: 7.0 Lipid Panel[444330] Collected: 08/10/2022 04:24 PM Specimen Received: 08/10/2022 05:00 AM Source: [facility] Cholesterol, Total [[id number]] 08/11/2022 08:16 AM 233 mg/dL H 100-199 mg/d L Triglycerides [859678] 08/11/2022 08:16 AM 43 mg/dL 0-149 mg/dL HDL Cholesterol [122161] 08/11/2022 08:16 AM 120 mg/dL >39 mg/dL VLDL Cholesterol Leon [[id number]] 08/11/2022 08:16 AM 7 mg/dL 5-40 mg/dL LDL Chol Calc (RUST) [370452] 08/11/2022 08:16 AM 106 mg/dL H 0-99 mg/dL Hemoglobin A1c[830958] Collected: 08/10/2022 04:24 PM Specimen Received: 08/10/2022 05:00 AM Source: [facility] Hemoglobin A1c [[id number]] 08/11/2022 07:55 AM 5.1 % 4.8-5.6 % . Prediabetes: 5.7 - 6.4 Courtney betes: >6.4 Glycemic control for adults with diabetes: 7.0 Albumin/Creatinine Ratio,Uri ne[916633] Collected: 02/10/2022 05:41 PM Specimen Received: 02/10/2022 05:00 AM Source: [facility] Creatinine, Urine [[id number]] 02/11/2022 01:29 PM 45.9 mg/dL Not Estab. mg/dL Albumin, Urine [[id number]] 02/11/2022 01:29 PM 3.0 ug/mL Not Estab. ug/mL Verified by repeat analysi s Alb/Creat Ratio [[id number]] 02/11/2022 01:29 PM 7 mg/g creat 0-29 mg/g creat Normal: 0 - 29 Moderately in creased: 30 - 300 Severely increased: >300 Comp. Metabolic Panel (14)[3 90690] Collected: 01/27/2022 03:39 PM Specimen Received: 01/27/2022 05:00 AM Source: [facility] Glucose [[id number]] 01/28/2022 08:15 AM 92 mg/dL 65-99 mg/dL BUN [171954] 01/28/2022 08:16 AM 7 mg/dL 6-2 4 mg/dL Creatinine [642620] 01/28/2022 08:16 AM 0.54 mg/dL L 0.57-1.00 mg/dL eGFR [525614] 01/28/2022 08:17 AM 111 mL/min/1.73 >59 mL/min/1.73 BUN/Creatinine Ratio [712809] 01/28/2022 08:17 AM 13 9-23 Sodium [550164] 01/28/2022 08:13 AM 142 mmol/L 134-144 mmol/L Potassium [691326] 01/28/2022 08:16 AM 4.6 mmol/L 3.5-5.2 mmol/L Chloride [949290] 01/28/2022 08:07 AM 102 mmol/L 96-106 mmol/L Carbon Dioxide, Total [309334] 01/28/2022 08:15 AM 25 mmol/L 20-29 mmol/L Calcium [136727] 01/28/2022 08:15 AM 9.3 mg/dL 8.7-10.2 mg/dL Protein, Total [512645] 01/28/2022 08:16 AM 6.5 g/dL 6.0-8.5 g/dL Albumin [523372] 01/28/2022 08:16 AM 3.9 g/dL 3.8-4.9 g/dL Globulin, Total [913107] 01/28/2022 08:17 AM 2.6 g/dL 1.5-4.5 g/dL A/G Ratio [036826] 01/28/2022 08:17 AM 1.5 1.2-2.2 Bilirubin, Total [694055] 01/28/2022 08:16 AM 0.2 mg/dL 0.0-1.2 mg/dL Alkaline Phosphatase [304094] 01/28/2022 08:17 AM 61 IU/L 44-121 IU/L AST (SGOT) [594354] 01/28/2022 08:17 AM 31 IU/L 0-40 IU/L ALT (SGPT) [929322] 01/28/2022 08:17 AM 40 IU/L H 0-32 IU/L Lipid Panel[913082] Collected: 01/27/2022 03:39 PM Specimen Received: 01/27/2022 05:00 AM Source: [facility] Cholesterol, Total [[id number]] 01/28/2022 08:17 AM 208 mg/dL H 100-199 mg/d L Triglycerides [590115] 01/28/2022 08:17 AM 51 mg/dL 0-149 mg/dL HDL Cholesterol [421474] 01/28/2022 08:17 AM 88 mg/dL >39 mg/dL VLDL Cholesterol Leon [156247] 01/28/2022 08:17 AM 9 mg/dL 5-40 mg/dL LDL Chol Calc (NIH) [859768] 01/28/2022 08:17 AM 111 mg/dL H 0-99 mg/dL Hemoglobin A1c[760039] Collected: 01/27/2022 03:39 PM Specimen Received: 01/27/2022 05:00 AM Source: [facility] Hemoglobin A1c [[id number]] 01/28/2022 07:21 AM 5.0 % 4.8-5.6 % . Prediabetes: 5.7 - 6.4 Courtney betes: >6.4 Glycemic control for adults with diabetes: 7.0 Unable To Void[674164] Collected: 01/27/2022 03:39 PM Specimen Received: 01/27/2022 05:00 AM Source: [facility] Unable To Void [[id number]] 01/27/2022 05:57 PM Patient unable to void. Urin e to be collected at a later date. Comp. Metabolic Panel (14)[3 56642] Collected: 08/30/2021 04:31 PM Specimen Received: 08/30/2021 05:00 AM Source: [facility] Glucose [[id number]] 08/31/2021 11:07 AM TNP mg/dL Test not performed. Serum wa s in contact with cells when receivedwhich will make the result inaccurate. BUN [[id number]] 08/31/2021 11:08 AM 13 mg/dL 6-2 4 mg/dL Creatinine [863335] 08/31/2021 10:53 AM 0.62 mg/dL 0.57-1.00 mg/dL eGFR If NonAfricn Am [592127] 08/31/2021 10:53 AM 105 mL/min/1.73 >59 mL/min/1 .73 eGFR If Africn Am [586245] 08/31/2021 10:53 AM 122 mL/min/ 1.73 >59 mL/min/1.73 In accordance with recomme ndations from the NKF-ASN Task force, [facility] the [facility]GFR calculation to the 2020 CKD-EPI creatinine equation that estimates kidney function without a race variable. BUN/Creatinine Ratio [379717] 08/31/2021 11:08 AM 21 9-23 Sodium [023545] 08/31/2021 11:21 AM 139 mmol/L 134-144 mmol/L Potassium [999398] 08/31/2021 11:18 AM TNP mmol/L Test not performed. Serum wa s in contact with cells when receivedwhich will make the result inaccurate. Chloride [259648] 08/31/2021 11:18 AM 102 mmol/L 96-106 mmol/L Carbon Dioxide, Total [568170] 08/31/2021 11:10 AM 20 mmol/L 20-29 mmol/L Calcium [696966] 08/31/2021 11:07 AM 9.1 mg/dL 8.7-10.2 mg/dL Protein, Total [236473] 08/31/2021 11:07 AM 7.2 g/dL 6.0-8.5 g/dL Albumin [338057] 08/31/2021 11:07 AM 4.4 g/dL 3.8-4.8 g/dL Globulin, Total [888997] 08/31/2021 11:07 AM 2.8 g/dL 1.5-4.5 g/dL A/G Ratio [094554] 08/31/2021 11:07 AM 1.6 1.2-2.2 Bilirubin, Total [634969] 08/31/2021 11:08 AM 0.3 mg/dL 0.0-1.2 mg/dL Alkaline Phosphatase [431847] 08/31/2021 11:08 AM 61 IU/L 44-121 IU/L AST (SGOT) [601150] 08/31/2021 11:09 AM 18 IU/L 0-40 IU/L ALT (SGPT) [113563] 08/31/2021 11:11 AM 17 IU/L 0-32 IU/L Lipid Panel[[id number]] Collected: 08/30/2021 04:31 PM Specimen Received: 08/30/2021 05:00 AM Source: [facility] Cholesterol, Total [[id number]] 08/31/2021 11:23 AM 215 mg/dL H 100-199 mg/d L Triglycerides [025900] 08/31/2021 11:29 AM 73 mg/dL 0-149 mg/dL HDL Cholesterol [214498] 08/31/2021 11:26 AM 106 mg/dL >39 mg/dL VLDL Cholesterol Leon [[id number]] 08/31/2021 11:29 AM 13 mg/dL 5-40 mg/dL LDL Chol Calc (NIH) [836087] 08/31/2021 11:29 AM 96 mg/dL 0-99 mg/dL Hemoglobin A1c[[id number]] Collected: 08/30/2021 04:31 PM Specimen Received: 08/30/2021 05:00 AM Source: [facility] Hemoglobin A1c [[id number]] 08/31/2021 08:32 AM 5.1 % 4.8-5.6 % . Prediabetes: 5.7 - 6.4 Courtney betes: >6.4 Glycemic control for adults with diabetes: 7.0 Allergies, adverse reactions, alerts No known allergies and adverse reactions Medications No administered medications reported Vital Signs No vital signs reported Social History No smoking Hx information available
--- OUTSIDE RECORDS SUMMARY | 2025-03-20 02:15 | XMS_ITS | Encounter Summary ---
Author Organization [facility] Health Address [address] [facility] [place] [address] Care Team Providers Care Assistant Paralegal Name Role Phone Roberto Carlos Birmingham DO Primary Care Provider Encounter Details Date Type Department Care Team (Late st Contact Info) Description 12/10/2024 Telephone [facility] - Dermatology [address] [place] [address], [facility] [place] [address] Natali Santillan PA [address] [place] [address] 3 [place] [address] Social History Tobacco Use Types Packs/Day Years Used Date Smoking Tobacco: Never Smokeless Tobacco: Never Alcohol Use Standard Drinks/Week Comments Yes 0 (1 standard drink = 0.6 oz pur e alcohol) 1/ day Comments No Sex and Gender Information Value Date Recorded Sex Assigned at Not on file Legal Sex Female 9:58 PM FIELD SERVICE SUPERVISOR Gender Identity Not on file Sexual Orientation Not on file documented as of this encounter Miscellaneous Notes * Telephone Encounter - Candy Powers - 12/10/2024 12:03 PM CDT Called and spoke with CHARLES/Heron BARAJAS regarding Otezla. I was told the Appeal was denied and they will fax the denial. I will fax the denial letter to [facility] so the patient stays eligible for bridge. Candy Powers- Pharmacy Mud Analysis Well Logging Operator (Dermatology) * Telephone Encounter - Candy Powers - 12/10/2024 11:54 AM CDT Returned call to [facility] giving PA Denial case ID number and date appeal was faxed. Candy Powers- Pharmacy Mud Analysis Well Logging Operator (Dermatology) * Telephone Encounter - Apolonia Tirado - 12/10/2024 8:13 AM CDT Dinah with [facility] calling to get prior auth status for otezla. Good callback number is [phone] documented in this encounter Plan of Treatment Upcoming Encounters Date Type Department Care Team (Late st Contact Info) Description 05/28/2025 8:20 AM FIELD SERVICE SUPERVISOR Office Visit [facility] - Rheumatology [address] [place] [address], [place] [phone] Will Eden MD [address] [place] [address] [address] [place] [address] Kira Leon MD [address] [place] [address] 2L [place] [address] 06/09/2025 2:50 PM FIELD SERVICE SUPERVISOR Office Visit [facility] - Dermatology [address] [place] [address], [place] [address] Inna Trammell MD [address] [place] [address] [place] [address] documented as of this encounter Visit Diagnoses Not on filedocumented in this encounter Care Teams Assistant Paralegal Relationship Specialty Start Date End Date Roberto Carlos Birmingham DO [address] [facility] [address] [address] [facility] [address] [place] [address] PCP - General Internal Medicine 06/01/16 documented as of this encounter
--- OUTSIDE RECORDS SUMMARY | 2025-03-20 02:15 | XMS_ITS | Clinical Summary ---
Author Organization [facility] Address [address] [place] [address] Care Team Providers Care Oven Builder Name Role Phone Napoleon Gutierrez DO Primary Care Provider [phone] Allergies Active Allergy Reactions Criticality Noted Date Comments Penicillins Sulfa (Sulfonamide Antibiotics) Medications orphenadrine ER (NORFLEX) 100 mg 12 hr tabletIndication s:Muscle Spasm Take 1 tablet (100 mg total) by mouth 2 (two) times a day 15 tablet 06/16/2023 Active HYDROcodone-acet aminophen (NORCO) 5-325 mg per tabletIndication s:Pain Take 1 tablet by mouth every 6 (six) hours as needed for pain 8 tablet 12/15/2024 Active Social History Tobacco Use Types Packs/Day Years Used Date Smoking Tobacco: Never Assessed Personal Safety Answer Date Recorded Have you ever been in or are you currently in a harmful physical or emotional relationship or is someone making you feel afraid or unsafe? Denies 12/15/2024 Comments No Sex and Gender Information Value Date Recorded Sex Assigned at Not on file Legal Sex Female 4:21 AM SURGICAL SCRUB TECHNICIAN Gender Identity Not on file Sexual Orientation Not on file Last Filed Vital Signs Vital Sign Reading Time Taken Comments Blood Pressure 155/98 12/15/2024 7:23 AM CDT Pulse 88 12/15/2024 7:23 AM CDT Temperature 36.7 C (98.1 F) 12/15/2024 7:23 AM CDT Respiratory Rate 18 12/15/2024 7:23 AM CDT Oxygen Saturation 100% 12/15/2024 7:23 AM CDT Inhaled Oxygen Concentration - - Weight 75.3 kg (166 lb) 12/15/2024 7:45 AM CDT Height 152.4 cm (5') 06/16/2023 11:29 AM SURGICAL SCRUB TECHNICIAN Body Mass Index 32.42 06/16/2023 11:29 AM SURGICAL SCRUB TECHNICIAN Plan of Treatment Health Maintenance Due Date Last Done Comments Cervical Cancer Screening 1970 Colon Cancer Screening-Colonoscopy 1970 Depression Screening 1970 Hepatitis C Screening 1970 DTaP/Tdap/Td Vaccine (1 - Tdap) 1981 Hepatitis B Screening 1988 Regular Well Visit/Exam 18-64 1988 Zoster Vaccine (1 of 2) 2020 Covid-19 Vaccine (3 - season) 2024 08/11/2021, 10/21/2020 Influenza Vaccine (#1) 2025 Breast Cancer Screening-Mammogram 05/13/2025 05/13/2024, 05/10/2023, 02/17/2022, [...] compared to prior imaging studies performed at [facility] on 02/03/2021, 02/17/2022 and 05/10/2023. There [...] compared to prior imaging studies performed at [facility] on 02/03/2021, 02/17/2022 and 05/10/2023. There are scattered areas of fibroglandular density. There is no suspicious abnormality in either breast. Impression: There is no mammographic evidence of malignancy. Annual screening mammography is recommended. OVERALL FINAL ASSESSMENT: BI-RADS CATEGORY 1: Negative. us Self Screening Mammogram IMG MAMMO PROCEDURES Fi nal Result from Last 3 Months or Most Recently Relevant to Health Maintenance Insurance [employer] [place] Care Teams Oven Builder Relationship Specialty Start Date End Date Napoleon Gutierrez DO [address] [address] PCP - General Internal Medicine 02/20/24
--- OUTSIDE RECORDS SUMMARY | 2025-03-20 02:15 | XMS_ITS | Encounter Summary ---
Author Organization [facility] Health Address [address] [place] [address] Care Team Providers Care Wardrobe Custodian Name Role Phone Roberto Carlos Birmingham DO Primary Care Provider [phone] Reason for Visit * Reason Onset Date Comments Med Question 01/14/2025 Encounter Details Date Type Department Care Team (Late st Contact Info) Description 01/14/2025 Telephone [facility] - Centralized Scheduling [address] [place] [address] Natali Santillan, MAGGIE [address] [place] [address] Med Question Social History Tobacco Use Types Packs/Day Years Used Date Smoking Tobacco: Never Smokeless Tobacco: Never Alcohol Use Standard Drinks/Week Comments Yes 0 (1 standard drink = 0.6 oz pur e alcohol) 1/ day Comments No Sex and Gender Information Value Date Recorded Sex Assigned at Not on file Legal Sex Female 9:58 PM TEAM MEMBER Gender Identity Not on file Sexual Orientation Not on file documented as of this encounter Progress Notes * Candy Powers - 02/25/2025 9:33 AM CDT Medication Prior Authorization: Medication: [id number] tab Status: Denied. Reason for denial: patient cannot use in combination with biologic (currently prescribed Skyrizi) Submitted via: Cover My Meds (Herrera: [id number]) Insurance: CHARLES [employer] (p: [phone]) (f: [phone]) Case/Reference number: ID: [id number] RX Card Billing Info: BIN: [id number] PCN: [id number] GROUP: [id number] ID: [id number] PA denial notice uploaded to media tab. Uploaded denial notice to [facility] pharmacy portal. Patient is enrolled in pharmacy's bridge program. Candy Powers- Pharmacy Research Nurse Practitioner (Dermatology) documented in this encounter Miscellaneous Notes * Telephone Encounter - Candy Powesr - 02/24/2025 3:00 PM CDT PA submitted forcontinuation of therapy [id number] tab bid via [employer] currently waiting on decision. Herrera: [id number] Provider:[phone] (Aaron Powers [facility] - Pharmacy Research Nurse Practitioner * Telephone Encounter - Candy Powers - 01/15/2025 2:14 PM CDT Faxed 2nd Level appeal denial to [employer] program. Candy Powers- Pharmacy Research Nurse Practitioner (Dermatology) * Telephone Encounter - Cindy Quintana - 01/14/2025 11:59 AM CDT [employer] is calling for the status appeal for apremilast (Otezla) 10 & 20 & 30 MG tablet documented in this encounter Plan of Treatment Upcoming Encounters Date Type Department Care Team (Late st Contact Info) Description 05/28/2025 8:20 AM TEAM MEMBER Office Visit [facility] - Rheumatology [address] [place] [address], [place] [address] Will Eden MD [address] [place] [address] 3[address] [place] [address] Kira Leon MD [address] [place] [address] 2L [place] [address] 06/09/2025 2:50 PM TEAM MEMBER Office Visit [facility] - Dermatology [address] [place] [address], [place] [address] Inna Trammell MD [address] [place], [place] [address]T [place] [phone] documented as of this encounter Visit Diagnoses Not on filedocumented in this encounter Care Teams Wardrobe Custodian Relationship Specialty Start Date End Date Roberto Carlos Birmingham DO [address] [facility] [address] [facility] [address] [place] [address] PCP - General Internal Medicine 06/01/16 documented as of this encounter
--- OUTSIDE RECORDS SUMMARY | 2025-03-20 02:15 | XMS_ITS | Encounter Summary ---
Author Organization [facility] Health Address [address] [facility] [place] [address] Care Team Providers Care Hardwood Floor Installation Helper Name Role Phone Roberto Carlos Birmingham DO Primary Care Provider [phone] Reason for Visit * Reason Onset Date Comments Med Question 12/09/2024 Encounter Details Date Type Department Care Team (Late st Contact Info) Description 12/09/2024 Telephone [facility] - Centralized Scheduling [address] [place] [address] Inna Trammell [facility] [address] [facility] [place] [address] Med Question Social History Tobacco Use Types Packs/Day Years Used Date Smoking Tobacco: Never Smokeless Tobacco: Never Alcohol Use Standard Drinks/Week Comments Yes 0 (1 standard drink = 0.6 oz pur e alcohol) 1/ day Comments No Sex and Gender Information Value Date Recorded Sex Assigned at Not on file Legal Sex Female 9:58 PM PARI MUTUEL TICKET SELLER Gender Identity Not on file Sexual Orientation Not on file documented as of this encounter Miscellaneous Notes * Telephone Encounter - Tawanna Bauer - 12/10/2024 11:22 AM CDT Called pharmacy advised pt does not need loading dose this was provided in clinic on 11/18/24. Pharmacy advised pt medication is scheduled for delivery on 12/12/24. Tawanna Bauer * Telephone Encounter - Aubrey Betzaida - 12/09/2024 8:23 AM CDT Patient's pharmacy called asking if someone can call them in regards to patient's prescription, Otezla. They are trying to figure out if she needs loading does or not n [phone] documented in this encounter Plan of Treatment Upcoming Encounters Date Type Department Care Team (Late st Contact Info) Description 05/28/2025 8:20 AM PARI MUTUEL TICKET SELLER Office Visit [facility] - Rheumatology [address] [place] [address], [place] [address] Will Eden MD [address] [place] [address] [address] [place] [address] Kira Leon MD [address] [place] [address] 2[address] [place] [phone] 06/09/2025 2:50 PM PARI MUTUEL TICKET SELLER Office Visit [facility] - Dermatology [address] [place] [address], [place] [address] Inna Trammell MD [address] [place], [place] [address] [address] documented as of this encounter Visit Diagnoses Not on filedocumented in this encounter Care Teams Hardwood Floor Installation Helper Relationship Specialty Start Date End Date Roberto Carlos Birmingham DO [address] [facility] [address] [facility] 21 [place] [address] PCP - General Internal Medicine 06/01/16 documented as of this encounter
--- OUTSIDE RECORDS SUMMARY | 2025-03-20 02:15 | XMS_ITS | Encounter Summary ---
Author Organization [facility] Health Address [address] [facility] [place] [address] Care Team Providers Care Workforce Development Specialist Name Role Phone Roberto Carlos Birmingham DO Primary Care Provider [phone] Encounter Details Date Type Department Care Team (Late st Contact Info) Description 09/19/2023 Telephone [facility] - Dermatology [address] [place] [address], [facility] [place] [place] [address] Inna Trammell MD [address] [place] [address] [place] [phone] Social History Tobacco Use Types Packs/Day Years Used Date Smoking Tobacco: Never Smokeless Tobacco: Never Alcohol Use Standard Drinks/Week Comments Yes 0 (1 standard drink = 0.6 oz pur e alcohol) 1/ day Comments No Sex and Gender Information Value Date Recorded Sex Assigned at Not on file Legal Sex Female 9:58 PM COMPUTER PROJECT MANAGER Gender Identity Not on file Sexual Orientation Not on file documented as of this encounter Miscellaneous Notes * Telephone Encounter - Mariah Suarez - 09/19/2023 9:39 AM CST Patient stated she is returning a call to speak with Candy. Please advise UTER PROJECT MANAGER documented in this encounter Plan of Treatment Upcoming Encounters Date Type Department Care Team (Late st Contact Info) Description 05/28/2025 8:20 AM COMPUTER PROJECT MANAGER Office Visit [facility] - Rheumatology [address] [place] [address], [place] [address] Will Eden MD [address] [place] [address] [address] [place] [address] Kira Leon MD [address] [place] [address] 2[address] [place] [phone] 06/09/2025 2:50 PM COMPUTER PROJECT MANAGER Office Visit [facility] - Dermatology [address] [place] [address], [place] [address] Inna Trammell MD [address] [place], [place] [address] [phone] documented as of this encounter Visit Diagnoses Not on filedocumented in this encounter Care Teams Workforce Development Specialist Relationship Specialty Start Date End Date Roberto Carlos Birmingham DO [address] [facility] [address] [address] PCP - General Internal Medicine 06/01/16 documented as of this encounter
--- OUTSIDE RECORDS SUMMARY | 2025-03-20 02:16 | XMS_ITS | Clinical Summary ---
Author Organization [facility] [employer] Address [address] [facility] [place] [address] Care Team Providers Care Pest Controller Name Role Phone Roberto Carlos Birmingham DO Primary Care Provider Source Comments [facility] [employer],non-owned Affiliates and Associated Physician Practices is amultiple site organization consisting of ambulatory clinics and hospital sitesin [place], [place], [place] and [place]. This disclosure is being madepursuant to the Care Everywhere program and may not contain all information available regarding this patient. Last updated 18.[facility] [employer] Allergies Active Allergy Reactions Criticality Noted Date Comments Sulfa Drugs Nausea and/or Vomiting 08/24/2019 Early adulthood allergy. Medications * Be aware that medications may not be up to date on this document. Alwaysverify current medications with the patient. vitamin D, ergocalcifero l, (Drisdol) 1.25 MG (47092 UT) capsule 05/14/20 23 Active naltrexone (Revia) 50 MG tablet Take 1 (one) tablet by mouth once daily 11/05/19 24 Active apremilast (Otezla) 10 & 20 & 30 MG tabletIndicat ions:Other psoriasis Please take pills daily as outlined: Day 1: 10 mg in morning. Day 2: 10 mg in morning and 10 mg in evening. Day 3: 10 mg in morning and 20 mg in evening. Day 4: 20 mg in morning and 20 mg in evening.Day 5: 20 mg in morning and 30 mg in evening. Day 6 and thereafter: 30 mg twice daily 11/19/19 25 Active Apremilast (Otezla) 30 MGIndications :Other psoriasis Take 1 (one) tablet by mouth 2 times daily 60 tablet 12/06/19 25 Active Apremilast (Otezla) 30 MGIndications :Other psoriasis Take 1 (one) tablet by mouth 2 times daily 60 tablet 12/06/19 25 Active Apremilast (Otezla) 30 MGIndications :Other psoriasis Take 1 (one) tablet by mouth 2 times daily 60 tablet 12/10/19 25 Active risankizumab- rzaa (Skyrizi Pen) 150 MG/ML injectionIndi cations:Other psoriasis INJECT 1 PEN UNDER THE SKIN EVERY 12 WEEKS 1 mL 02/20/20 25 Active risankizumab- rzaa (Skyrizi Pen) 150 MG/ML injectionIndi cations:Other psoriasis Inject 1mL subcutaneously every 12 weeks. 12 week supply. 1 mL 2 06/25/20 24 2024 Discontinued Active Problems Problem Noted Date Diagnosed Date [...] Encounters Date Type Department Care Team Description 03/04/2025 2:00 PM CDT Office Visit [facility] - Dermatology [address] [place] [phone] Inna Trammell MD Seborrheic keratosis, inflamed (Primary Dx); Psoriasis vulgaris; High risk medications (not anticoagulants) long-term use 03/04/2025 Travel 02/19/2025 Refill [facility] - General Dermatology [address] [place] [address] Inna Trammell MD Refill Request 01/14/2025 Telephone [facility] - Centralized Scheduling [address] [place] [address] Natali Santillan PA Med Question from Last 3 Months Social History Tobacco Use Types Packs/Day Years Used Date Smoking Tobacco: Never Smokeless Tobacco: Never Tobacco Cessation:Counseling Given: Not Answered Alcohol Use Standard Drinks/Week Comments Yes 0 (1 standard drink = 0.6 oz pur e alcohol) 1/ day Comments No Sex and Gender Information Value Date Recorded Sex Assigned at Not on file Legal Sex Female 9:58 PM MANAGER PURCHASING Gender Identity Not on file Sexual Orientation Not on file Last Filed Vital Signs Vital Sign Reading Time Taken Comments Blood Pressure 136/84 08/15/2020 3:14 PM MANAGER PURCHASING Pulse 67 08/15/2020 3:14 PM MANAGER PURCHASING Temperature 36.8 C (98.2 F) 08/15/2020 3:14 PM MANAGER PURCHASING Respiratory Rate 17 08/15/2020 3:14 PM MANAGER PURCHASING Oxygen Saturation 98% 08/15/2020 3:14 PM MANAGER PURCHASING Inhaled Oxygen Concentration - - Weight 79.8 kg (176 lb) 08/15/2020 3:14 PM MANAGER PURCHASING Height 152.4 cm (5') 08/15/2020 3:14 PM MANAGER PURCHASING Body Mass Index 34.37 08/15/2020 3:14 PM MANAGER PURCHASING Plan of Treatment Upcoming Encounters Date Type Department Care Team (Late st Contact Info) Description 05/28/2025 8:20 AM MANAGER PURCHASING Office Visit [facility] - Rheumatology [facility] [facility], [place] [address] Will Eden MD [address] [place] [address] [address]L [place] [address] Kira Leon MD [facility] [facility] [place] [address]L [place] [address] 06/09/2025 2:50 PM MANAGER PURCHASING Office Visit [facility] - Dermatology [address] [facility], [facility] [place] [address] Inna Trammell MD [address] [facility] [place] [address] Health Maintenance Due Date Last Done Comments COLOGUARD (AGES 45-75) - COLON CA SCREENING 1970 COLON MONITORING 1970 COLONOSCOPY - COLON CA SCREENING 1970 CT COLONOGRAPHY - COLON CA SCREENING 1970 Colorectal Cancer Screening 1970 FIT - COLON CA SCREENING 1970 FLEX SIG - COLON CA SCREENING 1970 LIPID TESTING 1970 HIV SCREENING 1985 DTAP/TDAP/TD VACCINES (1 - Tdap) 1989 HEPATITIS B VACCINE (1 of 3 - 19+ 3-dose series) 1989 PAP SMEAR 10/13/1991 PNEUMOCOCCAL VACCINE 50+ (1 of 1 - PCV) 2020 ZOSTER VACCINE (1 of 2) 2020 DEPRESSION SCREENING 07/16/2024 COVID-19 VACCINE (3 - season) 2025 08/11/2021, 10/21/2020 INFLUENZA VACCINE (#1) 2025 04/27/2015 MAMMOGRAM 05/13/2026 05/13/2024, 04/16, 05/10/2023, Additional history [...] Procedure Name Priority Date/Time Associated Diagnosis Comments DC DESTRUCT BENIGN LESION, 1-14 Routine 03/04/2025 2:33 PM CDT Seborrheic keratosis, inflamed HEPATITIS C ANTIBODY Routine 08/20/2023 5:15 PM MANAGER PURCHASING Arthritis from Last 3 Months or Most Recently Relevant to Health Maintenance Results * DC DESTRUCT BENIGN LESION, 1-14 (03/04/2025 2:33 PM CDT) Narrative Inna Trammell MD - 03/04/2025 2:33 PM CDT Inna Trammell MD 03/04/2025 2:35 PM Diagnosis and treatment options discussed. Liquid nitrogen was applied to 1 inflamed seborrheic keratosis on right clavicle for 6-10 seconds each for 1 cycle. Wound care reviewed. Shirley Reyes MD us Inna Trammell MD PROCEDURE/MINOR SURGICAL ORDERA BLES Final Result * HEPATITIS C ANTIBODY (08/20/2023 5:15 PM MANAGER PURCHASING) Hepatitis C Antibody Non-react octavio Non-reac tive 08/20/2023 6:55 PM MANAGER PURCHASING [facility] Comment:Hepatitis C Antibody screen [...] Lab Venipuncture / Unknown 08/20/2023 5:15 PM MANAGER PURCHASING 08/20/2023 6:22 PM MANAGER PURCHASING us Inna Trammell MD LAB - CHEMISTRY ORDERABLES Jessica l Result [facility] [address] [place] [address], [facility] [phone] from Last 3 Months or Most Recently Relevant to Health Maintenance Insurance [employer] Care Teams Pest Controller Relationship Specialty Start Date End Date Roberto Carlos Birmingham DO [address] [facility] [address] [place] [address] PCP - General Internal Medicine 06/01/16
--- OUTSIDE RECORDS SUMMARY | 2025-03-20 02:16 | XMS_ITS | Encounter Summary ---
Author Organization [facility] Health Address [address] [facility] [place] [address] Care Team Providers Care Golf Club Assembler Name Role Phone Roberto Carlos Birmingham DO Primary Care Provider Reason for Visit * Reason Onset Date Comments Nurse Only 08/30/2023 Encounter Details Date Type Department Care Team (Late st Contact Info) Description 08/30/2023 Telephone [facility] - Centralized Scheduling [address] [place] [address] Inna Trammell MD [address] [facility] [place] [address] Nurse Only Social History Tobacco Use Types Packs/Day Years Used Date Smoking Tobacco: Never Smokeless Tobacco: Never Alcohol Use Standard Drinks/Week Comments Yes 0 (1 standard drink = 0.6 oz pur e alcohol) 1/ day Comments No Sex and Gender Information Value Date Recorded Sex Assigned at Not on file Legal Sex Female 9:58 PM GEOCHEMIST Gender Identity Not on file Sexual Orientation Not on file documented as of this encounter Miscellaneous Notes * Telephone Encounter - Candy Powers - 09/03/2023 9:18 AM CST Called and lft for patient to give me a call back at my direct phone line ([phone]). I emailed patient portion of [employer] Application to patient's email and waiting for provider to complete her portion as well. Once application portions are signed I will fax to [employer]. Candy Powers HEMIST * Telephone Encounter - Sarika Trammell - 08/30/2023 4:05 PM CST Pt is calling dx Psorasis, she is having issues with Skyrizi,pt does not have prescription yet the cost is 6000$ and she is also calling to see what her results where for biopsy, pt would like to speak to the office HEMIST documented in this encounter Plan of Treatment Upcoming Encounters Date Type Department Care Team (Late st Contact Info) Description 05/28/2025 8:20 AM GEOCHEMIST Office Visit [facility] - Rheumatology [address] [place] [address], [place] [address] Will Eden MD [address] [place] [address] [address] [place] [address] Kira Leon MD [address] [place] [address] 2[address] [place] [address] 06/09/2025 2:50 PM GEOCHEMIST Office Visit [facility] - Dermatology [address] [place] [address], [place] [address] Inna Trammell MD [address] [place], [place] [address] [address] documented as of this encounter Visit Diagnoses Not on filedocumented in this encounter Care Teams Golf Club Assembler Relationship Specialty Start Date End Date Roberto Carlos Birmingham DO [address] [facility] [address] [facility] [[email or web address] [address] [place] [address] PCP - General Internal Medicine 06/01/16 documented as of this encounter
--- OUTSIDE RECORDS SUMMARY | 2025-03-20 02:16 | XMS_ITS | Clinical Summary ---
Author Organization [facility] Address [address] [address] Phone Care Team Providers Care Customer Solutions Supervisor Name Role Phone Unavailable Primary Care Provider Unavailabl e Active Problems Problem Noted Date Diagnosed Date Other nonthrombocytopenic purpura 10/15/2012 Proteinuria 10/15/2012 Overview (09/28/2018): Converted unresolved ICD9, potential mismatch. 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
--- NOTE | 2025-03-20 05:28 | WPDHPUPDATE1 ---
History and Physical Update Update Date/Time: 03/20/25 05:28 History and Physical has been reviewed, including an updated exam of the patient. There are NO changes in the patient's condition. Risks, benefits, and alternatives have been discussed and questions answered. Patient agrees to proceed with procedure.
[2025-03-20 09:27] VITALS: BP 125/80; PULSE 62; RESP 20; TEMP 36.6; O2SAT 100
[2025-03-20] MEDS: ACETAMINOPHEN 500 MG TABLET 1000 MG PO (09:59)
[2025-03-20] MEDS: LACTATED RINGERS 1,000 ML 30 ML IV CONT (10:00)
--- NOTE | 2025-03-20 11:07 | WPDANESEPPF ---
Anes - Initial Pre Proc Eval Procedure: Operation Date: 03/20/25 11:15 Proposed Procedures p Hysteroscopy Dilation and Curettage - Mahin Lyles MD Date/Time: 03/20/25 11:07 Surgeon: Mahin yLles MD Pre Op Diagnosis: irregular bleeding Patient Data Age: 54 Gender: F Height: 1.52 m Weight: 87.9 kg Last Vital Signs Temp 36.6 C 03/20/25 09:27 Pulse 62 03/20/25 09:27 Resp 20 03/20/25 09:27 BP 125/80 03/20/25 09:27 Pulse Ox 100 03/20/25 09:27 O2 Del Method Room Air 03/20/25 09:27 Allergies Allergy/AdvReac Type Severity Reaction Status Date / Time Sulfa (Sulfonamide Allergy Mild unknown-as Verified 03/20/25 09:30 Antibiotics) a child Home Medications ?Medication ?Instructions ?Recorded ?Confirmed ?Type ergocalciferol (vitamin D2) 1,250 1,250 mcg PO WEEKLY 03/23/21 03/20/25 History mcg (50,000 unit) capsule risankizumab-rzaa 150 mg/mL 150 mg subcut ONCE 09/05/23 03/20/25 History subcutaneous pen injector (Skyrizi) apremilast 30 mg tablet (Otezla) 30 mg PO BID 03/11/25 03/20/25 History ascorbic acid (vitamin C) 500 mg 500 mg PO DAILY 03/11/25 03/20/25 History tablet (C-500) estradiol-norethindrone acet 1 1 tablet PO DAILY 03/11/25 03/20/25 History mg-0.5 mg tablet (Mimvey) sour chauhan extract 1,000 mg 1,000 mg PO DAILY 03/11/25 03/20/25 History capsule (Tart Chauhan Extract) turmeric 400 mg capsule 1,000 mg PO DAILY 03/11/25 03/20/25 History hydrocodone 5 mg-acetaminophen 325 1 tablet PO Q4H PRN pain #20 tabs 03/20/25 Rx mg tablet Patient hx anesthesia problems: none Family hx anesthesia problems: none Results Review: All pre-operative results and documents have been reviewed as part of the pre-operative evaluation. [facility] Past Medical History Medical History Cervical vertebral fusion Torn meniscus Colon cancer screening Obesity (BMI 30-39.9) Surgical History Surgical History H/O arthroscopic knee surgery History of bunionectomy Family History Family History Mother Family history of liver disease, Onset Age: 46 Patient's mother is Father Family history of diabetes mellitus in first degree relative, Onset Age: 64 Patient's father is Sibling , pulmonary edema No problems noted. Sibling No problems noted. Social History Social History Smoking packs per day: 1 Smoking cigarettes per day: 20.0 Years smoked: 12 Smoking pack-years: 12.00 Smoking status: Former smoker Tobacco type: cigarettes Second hand tobacco smoke exposure: No Smoking end date: 03/11/05 Alcohol intake: current Drinks per week: 6 Substance use: never Substance use type: does not use Do You Feel Safe in your Home?: Yes Lack of Transportation: No Lack of Food: Never True Current Housing: I Have Housing Concerned About Future Housing: No Difficulty Paying Gas/Electric Bills: No Difficulty Paying for Meds: YES Currently Unemployed: No Education: High School Diploma/GED Difficulty w/ Childcare or Family Care: No Living arrangements: with family Occupation/Education: occupation 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 Informed Consent: The patient's anesthetic plan and its attendant risks and benefits were discussed with the patient/family/POA. Questions were solicited and answers provided to the satisfaction of the patient/family/POA.
[2025-03-20] MEDS: LIDOCAINE 1% LOCAL INJ 10 ML VIAL INFILTRATE (11:35)
--- NOTE | 2025-03-20 11:36 | S_PTH ---
PATIENT: Janet Chiu LOC: [facility] U#:[id number] AGE/SX: 54/F ROOM: RE03/20/[address]: Mahin Lyles MD : 1970 BED: DIS: 03/20/2025 SPEC #: [id number] RECD: 03/20/25 13:22 STATUS: [place]IB[place] REQ #: [id number] JADE: 03/20/25 11:[address]: Mahin Tran DEPT: [facility] Surgical RECD BY: Yasmeen Mancuso ENTERED: 03/20/25 13:22 SP TYPE: Surgical OTHR DR: Napoleon Gutierrez DO Tissues: A - Endometrial Curettings Procedures: Hematoxylin and Eosin Stain Gross and Microscopic Level 4 P53 P16
--- NOTE | 2025-03-20 11:43 | W.PM.PROC2 ---
Procedure Note - Detailed Date of Procedure 03/20/25 Pre-op Diagnosis irregular bleeding Post-op Diagnosis Same Procedure Performed Hysteroscopy/dilatation curettage Surgeon Mahin Lyles MD Anesthesia MAC and Local Indications 54-year-old female with postmenopausal bleeding Findings Benign atrophic appearing endometrium Description of Procedure The patient is prepped draped in normal sterile fashion placed in dorsal lithotomy position. Under excellent IV sedation weighted speculum placed in posterior fornix vagina. Anterior lip the cervix grasped with a single-tooth tenaculum. 2.5cc 1% xylocaine anesthesia placed at 2, 4, 8, 10:00 a.m. of the cervix respectively. Uterus sounded to 8cm. Serial dilatation with fragmented dilators performed followed by passage of the 5mm visualizing hysteroscope using normal saline as visualizing medium. Benign-appearing endometrium was seen the uterus was scraped over the entire 360? the instruments withdrawn the patient went to recovery in satisfactory condition. All sponge, needle, instrument counts were correct. There were no immediate complications Estimated Blood Loss 5 Drains No Packing No Pathology Yes Complications No immediate complications Condition Stable Disposition PACU
[2025-03-20 11:45] VITALS: BP 116/68; PULSE 80; RESP 12; O2SAT 97
[2025-03-20 12:15] VITALS: BP 119/76; PULSE 79
[2025-03-20] MEDS: oxyCODONE HCL (*CRX) 5 MG TAB IR PO (12:27)
[2025-03-20 12:45] VITALS: BP 146/59; PULSE 63
== END 2025-03-20 12:54 | disposition home or self-care (01) ==
PROVIDERS: PCP Internal Medicine; Visit Provider Obstetrics & Gynecology
PROC: 0U5B8ZZ Destruction of Endometrium, Via Natural or Artificial Opening Endoscopic (ICD-10-PCS; CPT 58563; principal; 2025-03-20 11:15)
DX: N95.0 Postmenopausal bleeding (principal); Z87.891 Personal history of nicotine dependence; E66.9 Obesity, unspecified; Z68.37 Body mass index [BMI] 37.0-37.9, adult
CPT/HCPCS: 58558; 88305; 88342; A9270; J2003; J2250; J2270; J2704; J7120

== ENCOUNTER 2025-04-23 08:10 | Outpatient (CLI) | payer BC, SELFPAY ==
--- OUTSIDE RECORDS SUMMARY | 2025-04-23 08:16 | XMS_ITS | Continuity of Care Document ---
Author Organization Formerly [facility] Address [address] [address] Insurance Providers Payer Plan Claims Address Claims Phone Policy Number Group Number Relation Employer Guarantor Name Guarantor Guarantor Address Guarantor Phone Salima Fournier [address] [address] tel:[phone] Self Janet Schaefer Aram [address] [place] [id number] Salima Fournier [address], [place] [address] tel:[phone] Self Janet Chiu [address] [place] [id number] Salima Fournier [address], [place] [address] tel:[phone] Self Janet Chiu [address] [place] [phone] Problems Unknown Problems Results Test Result Date/Time Value / Unit Interp. Refere nce Range Comp. Metabolic Panel (14)[3 ] Collected: 10/20/2024 02:55 PM Specimen Received: 10/20/2024 05:00 AM Source: [facility] Glucose [[id number]] 10/21/2024 11:28 AM 110 mg/dL H 70-99 mg/dL BUN [[id number]] 10/21/2024 11:31 AM 13 mg/dL 6-2 4 mg/dL Creatinine [[id number]] 10/21/2024 11:32 AM 0.51 mg/dL L 0.57-1.00 mg/dL eGFR [[id number]] 10/21/2024 11:32 AM 111 mL/min/1.73 >59 mL/min/1.73 BUN/Creatinine Ratio [994551] 10/21/2024 11:32 AM 25 H 9-23 Sodium [[id number]] 10/21/2024 11:23 AM 142 mmol/L 134-144 mmol/L Potassium [231214] 10/21/2024 11:24 AM 4.4 mmol/L 3.5-5.2 mmol/L Chloride [791677] 10/21/2024 11:23 AM 105 mmol/L 96-106 mmol/L Carbon Dioxide, Total [210668] 10/21/2024 11:30 AM 25 mmol/L 20-29 mmol/L Calcium [348935] 10/21/2024 11:24 AM 9.3 mg/dL 8.7-10.2 mg/dL Protein, Total [042368] 10/21/2024 11:31 AM 6.7 g/dL 6.0-8.5 g/dL Albumin [[id number]] 10/21/2024 11:30 AM 4.3 g/dL 3.8-4.9 g/dL Globulin, Total [937665] 10/21/2024 11:31 AM 2.4 g/dL 1.5-4.5 g/dL Bilirubin, Total [666835] 10/21/2024 11:31 AM 0.4 mg/dL 0.0-1.2 mg/dL Alkaline Phosphatase [536028] 10/21/2024 11:31 AM 60 IU/L 44-121 IU/L AST (SGOT) [027761] 10/21/2024 11:31 AM 18 IU/L 0-40 IU/L ALT (SGPT) [431402] 10/21/2024 11:33 AM 12 IU/L 0-32 IU/L Lipid Panel[100774] Collected: 10/20/2024 02:55 PM Specimen Received: 10/20/2024 05:00 AM Source: [facility] Cholesterol, Total [[id number]] 10/21/2024 12:09 PM 259 mg/dL H 100-199 mg/d L Triglycerides [[id number]] 10/21/2024 12:07 PM 50 mg/dL 0-149 mg/dL HDL Cholesterol [221112] 10/21/2024 12:12 PM 131 mg/dL >39 mg/dL VLDL Cholesterol Leon [559485] 10/21/2024 12:12 PM 8 mg/dL 5-40 mg/dL LDL Chol Calc ([facility]) [422254] 10/21/2024 12:12 PM 120 mg/dL H 0-99 mg/dL Hemoglobin A1c[[id number]] Collected: 10/20/2024 02:55 PM Specimen Received: 10/20/2024 05:00 AM Source: [facility] Hemoglobin A1c [[id number]] 10/21/2024 10:54 AM 5.2 % 4.8-5.6 % . Prediabetes: 5.7 - 6.4 Courtney betes: >6.4 Glycemic control for adults with diabetes: 7.0 Lipid Panel[[id number]] Collected: 07/25/2023 03:48 PM Specimen Received: 07/25/2023 05:00 AM Source: [facility] Cholesterol, Total [[id number]] 07/26/2023 06:07 AM 274 mg/dL H 100-199 mg/d L Triglycerides [495592] 07/26/2023 06:01 AM 52 mg/dL 0-149 mg/dL HDL Cholesterol [[id number]] 07/26/2023 06:02 AM 136 mg/dL >39 mg/dL VLDL Cholesterol Leon [[id number]] 07/26/2023 06:07 AM 8 mg/dL 5-40 mg/dL LDL Chol Calc ([facility]) [271219] 07/26/2023 06:07 AM 130 mg/dL H 0-99 mg/dL Hemoglobin A1c[176405] Collected: 07/25/2023 03:48 PM Specimen Received: 07/25/2023 05:00 AM Source: [facility] Hemoglobin A1c [[id number]] 07/26/2023 05:27 AM 5.0 % 4.8-5.6 % . Prediabetes: 5.7 - 6.4 Courtney betes: >6.4 Glycemic control for adults with diabetes: 7.0 Lipid Panel[[id number]] Collected: 08/10/2022 04:24 PM Specimen Received: 08/10/2022 05:00 AM Source: [facility] Cholesterol, Total [[id number]] 08/11/2022 08:16 AM 233 mg/dL H 100-199 mg/d L Triglycerides [937104] 08/11/2022 08:16 AM 43 mg/dL 0-149 mg/dL HDL Cholesterol [454664] 08/11/2022 08:16 AM 120 mg/dL >39 mg/dL VLDL Cholesterol Leon [563477] 08/11/2022 08:16 AM 7 mg/dL 5-40 mg/dL LDL Chol Calc ([facility]) [702922] 08/11/2022 08:16 AM 106 mg/dL H 0-99 mg/dL Hemoglobin A1c[[id number]] Collected: 08/10/2022 04:24 PM Specimen Received: 08/10/2022 05:00 AM Source: [facility] Hemoglobin A1c [[id number]] 08/11/2022 07:55 AM 5.1 % 4.8-5.6 % . Prediabetes: 5.7 - 6.4 Courtney betes: >6.4 Glycemic control for adults with diabetes: 7.0 Albumin/Creatinine Ratio,Uri ne[[id number]] Collected: 02/10/2022 05:41 PM Specimen Received: 02/10/2022 05:00 AM Source: [facility] Creatinine, Urine [[id number]] 02/11/2022 01:29 PM 45.9 mg/dL Not Estab. mg/dL Albumin, Urine [[id number]] 02/11/2022 01:29 PM 3.0 ug/mL Not Estab. ug/mL Verified by repeat analysi s Alb/Creat Ratio [147104] 02/11/2022 01:29 PM 7 mg/g creat 0-29 mg/g creat Normal: 0 - 29 Moderately in creased: 30 - 300 Severely increased: >300 Comp. Metabolic Panel (14)[3 76251] Collected: 01/27/2022 03:39 PM Specimen Received: 01/27/2022 05:00 AM Source: [facility] Glucose [[id number]] 01/28/2022 08:15 AM 92 mg/dL 65-99 mg/dL BUN [[id number]] 01/28/2022 08:16 AM 7 mg/dL 6-2 4 mg/dL Creatinine [034763] 01/28/2022 08:16 AM 0.54 mg/dL L 0.57-1.00 mg/dL eGFR [530792] 01/28/2022 08:17 AM 111 mL/min/1.73 >59 mL/min/1.73 BUN/Creatinine Ratio [144286] 01/28/2022 08:17 AM 13 9-23 Sodium [088394] 01/28/2022 08:13 AM 142 mmol/L 134-144 mmol/L Potassium [755014] 01/28/2022 08:16 AM 4.6 mmol/L 3.5-5.2 mmol/L Chloride [957251] 01/28/2022 08:07 AM 102 mmol/L 96-106 mmol/L Carbon Dioxide, Total [392530] 01/28/2022 08:15 AM 25 mmol/L 20-29 mmol/L Calcium [156928] 01/28/2022 08:15 AM 9.3 mg/dL 8.7-10.2 mg/dL Protein, Total [769577] 01/28/2022 08:16 AM 6.5 g/dL 6.0-8.5 g/dL Albumin [476930] 01/28/2022 08:16 AM 3.9 g/dL 3.8-4.9 g/dL Globulin, Total [672633] 01/28/2022 08:17 AM 2.6 g/dL 1.5-4.5 g/dL A/G Ratio [[id number]] 01/28/2022 08:17 AM 1.5 1.2-2.2 Bilirubin, Total [078527] 01/28/2022 08:16 AM 0.2 mg/dL 0.0-1.2 mg/dL Alkaline Phosphatase [577814] 01/28/2022 08:17 AM 61 IU/L 44-121 IU/L AST (SGOT) [850626] 01/28/2022 08:17 AM 31 IU/L 0-40 IU/L ALT (SGPT) [976810] 01/28/2022 08:17 AM 40 IU/L H 0-32 IU/L Lipid Panel[[id number]] Collected: 01/27/2022 03:39 PM Specimen Received: 01/27/2022 05:00 AM Source: [facility] Cholesterol, Total [[id number]] 01/28/2022 08:17 AM 208 mg/dL H 100-199 mg/d L Triglycerides [018136] 01/28/2022 08:17 AM 51 mg/dL 0-149 mg/dL HDL Cholesterol [957418] 01/28/2022 08:17 AM 88 mg/dL >39 mg/dL VLDL Cholesterol Leon [[id number]] 01/28/2022 08:17 AM 9 mg/dL 5-40 mg/dL LDL Chol Calc ([facility]) [821013] 01/28/2022 08:17 AM 111 mg/dL H 0-99 mg/dL Hemoglobin A1c[[id number]] Collected: 01/27/2022 03:39 PM Specimen Received: 01/27/2022 05:00 AM Source: [facility] Hemoglobin A1c [[id number]] 01/28/2022 07:21 AM 5.0 % 4.8-5.6 % . Prediabetes: 5.7 - 6.4 Courtney betes: >6.4 Glycemic control for adults with diabetes: 7.0 Unable To Void[[id number]] Collected: 01/27/2022 03:39 PM Specimen Received: 01/27/2022 05:00 AM Source: [facility] Unable To Void [[id number]] 01/27/2022 05:57 PM Patient unable to void. Urin e to be collected at a later date. Comp. Metabolic Panel (14)[3 32912] Collected: 08/30/2021 04:31 PM Specimen Received: 08/30/2021 05:00 AM Source: [facility] Glucose [[id number]] 08/31/2021 11:07 AM TNP mg/dL Test not performed. Serum wa s in contact with cells when receivedwhich will make the result inaccurate. BUN [358347] 08/31/2021 11:08 AM 13 mg/dL 6-2 4 mg/dL Creatinine [[id number]] 08/31/2021 10:53 AM 0.62 mg/dL 0.57-1.00 mg/dL eGFR If NonAfricn Am [[id number]] 08/31/2021 10:53 AM 105 mL/min/1.73 >59 mL/min/1 .73 eGFR If Africn Am [[id number]] 08/31/2021 10:53 AM 122 mL/min/ 1.73 >59 mL/min/1.73 In accordance with recomme ndations from the NKF-ASN Task force, [facility] is in the process of updating its eGFR calculation to the 2020 CKD-EPI creatinine equation that estimates kidney function without a race variable. BUN/Creatinine Ratio [777539] 08/31/2021 11:08 AM 21 9-23 Sodium [013057] 08/31/2021 11:21 AM 139 mmol/L 134-144 mmol/L Potassium [251601] 08/31/2021 11:18 AM TNP mmol/L Test not performed. Serum wa s in contact with cells when receivedwhich will make the result inaccurate. Chloride [021175] 08/31/2021 11:18 AM 102 mmol/L 96-106 mmol/L Carbon Dioxide, Total [[id number]] 08/31/2021 11:10 AM 20 mmol/L 20-29 mmol/L Calcium [124835] 08/31/2021 11:07 AM 9.1 mg/dL 8.7-10.2 mg/dL Protein, Total [545671] 08/31/2021 11:07 AM 7.2 g/dL 6.0-8.5 g/dL Albumin [207433] 08/31/2021 11:07 AM 4.4 g/dL 3.8-4.8 g/dL Globulin, Total [492169] 08/31/2021 11:07 AM 2.8 g/dL 1.5-4.5 g/dL A/G Ratio [[id number]] 08/31/2021 11:07 AM 1.6 1.2-2.2 Bilirubin, Total [645542] 08/31/2021 11:08 AM 0.3 mg/dL 0.0-1.2 mg/dL Alkaline Phosphatase [405816] 08/31/2021 11:08 AM 61 IU/L 44-121 IU/L AST (SGOT) [[id number]] 08/31/2021 11:09 AM 18 IU/L 0-40 IU/L ALT (SGPT) [283905] 08/31/2021 11:11 AM 17 IU/L 0-32 IU/L Lipid Panel[[id number]] Collected: 08/30/2021 04:31 PM Specimen Received: 08/30/2021 05:00 AM Source: [facility] Cholesterol, Total [[id number]] 08/31/2021 11:23 AM 215 mg/dL H 100-199 mg/d L Triglycerides [856612] 08/31/2021 11:29 AM 73 mg/dL 0-149 mg/dL HDL Cholesterol [998283] 08/31/2021 11:26 AM 106 mg/dL >39 mg/dL VLDL Cholesterol Leon [153202] 08/31/2021 11:29 AM 13 mg/dL 5-40 mg/dL LDL Chol Calc ([facility]) [127156] 08/31/2021 11:29 AM 96 mg/dL 0-99 mg/dL Hemoglobin A1c[[id number]] Collected: 08/30/2021 04:31 PM Specimen Received: 08/30/2021 05:00 AM Source: [facility] Hemoglobin A1c [[id number]] 08/31/2021 08:32 AM 5.1 % 4.8-5.6 % . Prediabetes: 5.7 - 6.4 Di abetes: >6.4 Glycemic control for adults with diabetes: 7.0 Allergies, adverse reactions, alerts No known allergies and adverse reactions Medications No administered medications reported Vital Signs No vital signs reported Social History No smoking Hx information available
[2025-04-23 08:34] LABS: Hematocrit 40.2 % (37.0-47.0); Hemoglobin 13.1 g/dL (12.0-15.0); Immature Granulocyte Percent A 0.5 % (0-0.5); Lymphocytes Absolute Auto 1.79 K/mm3 (0.9-3.2); Mean Corpuscular HGB Conc 32.6 g/dl (32-36); Mean Corpuscular Hemoglobin 31.7 pg (26-34); Mean Corpuscular Volume 97.3 fl (80-100); Nucleated Red Blood Cells Absolute Auto 0.000 K/mm3 (0.0-0.012); Nucleated Red Blood Cells Perc 0.0 % (0.0-0.2); Platelet Count Result 290 k/mm3 (150-375); Red Blood Count 4.13 M/mm3 (4.2-5.4); White Blood Count 6.2 K/mm3 (4.5-10.0)
== END 2025-04-23 08:11 | disposition home or self-care (01) ==
LOC: ANHSURGERY 08:13
PROVIDERS: PCP Internal Medicine; Visit Provider Obstetrics & Gynecology
DX: N95.0 Postmenopausal bleeding (principal)
CPT/HCPCS: 36415; 85025; 86850; 86900; 86901

== ENCOUNTER 2025-04-24 00:46 | Day surgery (SDC) | payer BC, SELFPAY ==
[2025-04-20 13:16] VITALS: BMI 37.8
--- NOTE | 2025-04-20 13:28 | SUR.PREOP ---
[facility] has started construction of its new state of the art ER which will open Spring 2026. With this, we anticipate parking may be a challenge for some our surgical patients and families. Parking spaces are limited but are available for all Surgical, obstetrics, and ER patients sharing this lot. If you arrive and find you are having a hard time finding a parking space, please note that we understand the challenges, please drive around the hospital and park near Hospital Entrance 1. When you enter this entrance, you can ask a volunteer to direct or take you back to the surgical waiting area to check in. We appreciate everyone?s understanding of these expected challenges while we build for your future. Report to the Outpatient Waiting Room, entrance under the green pavilion located off [address], at time _1130am on date _04/24/25 . Planned Procedure Time: _130pm.? Time changes happen often and if your time is changed the preop area will call you the afternoon before. - You and your visitor will be asked to self-screen and do not enter if you have any COVID symptoms. Please call surgeon if you need to reschedule. - A mask is optional within the hospital at this time. - No food from midnight until time of surgery and no smoking, or chewing tobacco (or any form of nicotine). No chewing gum, candy or mints. Take only the following medications with a SIP of water on the morning of surgery: None . DO NOT STOP ANY OF YOUR OTHER PRESCRIPTION MEDICATIONS PRIOR TO SURGERY EXCEPT THE FOLLOWING Hold all vitamins and supplements for 3 days per anesthesiologist. Medications to discontinue per physician Pt is following Dermatology instructions for Otezla and Skyrizi___ Date to take last dose 04/20/25 of vitamins.. Please no make-up, nail kyrgyz, hairspray, perfume, deodorant, or body powder the day of surgery.? No jewelry (including any body piercings) or valuables the day of surgery, leave them at home.? Please take a shower or bath the night before, or the morning of, surgery with an antibacterial soap.? Wear comfortable, loose fitting clothing.? - Jewelry must be removed prior to entering the operating room.? Rings and piercings that are not removed may be cut off. - The hospital will not accept responsibility for valuables.? - Please leave all valuables, including medications, at home the day of surgery. If you are going home after surgery, a licensed trencher driver must drive you home.? - NO public transportation without another adult if you receive anesthesia. - We recommend that an adult stay with you for 24 hours following discharge. - We also recommend that you do not drive, make important decision, drink alcoholic beverages, or take any drugs that were not prescribed by your health care provider for at least 24 hours after your discharge time. Follow any additional instructions given to you from your surgeon. Telephone instructions given to __Janet and asked if any additional questions and then verbalized understanding. Patient advised to call surgeon office or pre surgery nurse liaison [phone] if any additional questions.
--- NOTE | 2025-04-21 07:18 | PM.IMHP ---
H&P: HPI History of Present Illness Date/Time: 04/21/25 07:18 Chief Complaint: Recurrent high-grade dysplasia/pelvic pain Narrative: This is a 54-year-old patient admitted for robotic hysterectomy and bilateral salpingo-oophorectomy secondary to recurrent high-grade dysplasia pelvic pain and postmenopausal bleeding with negative findings on hysteroscopy. Risks and benefits reviewed including not exclusive of , aspiration pneumonia, bleeding, transfusion, perforation injury to bowel, bladder, ureters, or other internal organs with need for open laparotomy. She received the ACOG handout entitled hysterectomy as well as the Radha handout. She had all questions answered. She asked to proceed Review of Systems Review of Systems: All systems reviewed & are unremarkable except as noted in HPI and below PMFSH Past Medical History Medical History Cervical vertebral fusion Torn meniscus Colon cancer screening Obesity (BMI 30-39.9) Surgical History Surgical History H/O arthroscopic knee surgery History of bunionectomy Family History Family History Mother Family history of liver disease, Onset Age: 46 Patient's mother is Father Family history of diabetes mellitus in first degree relative, Onset Age: 64 Patient's father is Sibling , pulmonary edema No problems noted. Sibling No problems noted. Social History Social History Smoking packs per day: 1 Smoking cigarettes per day: 20.0 Years smoked: 15 Smoking pack-years: 15.00 Smoking status: Former smoker Tobacco type: cigarettes Second hand tobacco smoke exposure: No Smoking end date: 03/11/05 Alcohol intake: current Drinks per week: 10 Substance use: never Substance use type: does not use Do You Feel Safe in your Home?: Yes Lack of Transportation: No Lack of Food: Never True Current Housing: I Have Housing Concerned About Future Housing: No Difficulty Paying Gas/Electric Bills: No Difficulty Paying for Meds: YES Currently Unemployed: No Education: High School Diploma/GED Difficulty w/ Childcare or Family Care: No Living arrangements: other Additional living arrangements comments: I have a partner Occupation/Education: occupation 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 Instructions: holding for surgery for over one week per Dermatology ascorbic acid (vitamin C) 500 mg 500 mg PO DAILY 03/11/25 04/20/25 History tablet (C-500) estradiol-norethindrone acet 1 1 tablet PO DAILY 03/11/25 04/20/25 History mg-0.5 mg tablet (Mimvey) sour chauhan extract 1,000 mg 1,000 mg PO DAILY 03/11/25 04/20/25 History capsule (Tart Chauhan Extract) turmeric 400 mg capsule 1,000 mg PO DAILY 03/11/25 04/20/25 History multivitamin with minerals-folic tablet PO DAILY 04/20/25 History acid 200 mcg chewable tablet red beet 250 mg-sour chauhan 1 tablet PO DAILY 04/20/25 04/20/25 History extract 0.5 mg chewable tablet Allergies Allergy/AdvReac Type Severity Reaction Status Date / Time Sulfa (Sulfonamide Allergy Mild unknown-as Verified 04/20/25 13:06 Antibiotics) a child Exam Const: General: cooperative, healthy appearing and comfortable Nutritional Appearance: average body habitus Orientation/consciousness: oriented to person, oriented to place and oriented to time Resp: Effort & Inspection: normal respiratory effort Cardio: Rate: regular rate Rhythm: regular rhythm Heart sounds: S1 normal heart sound present and S2 normal heart sound present GI: Inspection: normal to inspection : External Female Exam: normal external appearance Speculum Exam - Vagina: normal appearance of the vagina Speculum Exam - Cervix: normal appearance of the cervix Bimanual exam- vagina & uterus: enlarged and Uterine tenderness Bimanual Exam- Adnexa, other: normal adnexae Assessment and Plan Assessment and plan (1) 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
[2025-04-24] VITALS (9 sets, daily range): BP systolic 118–148; BP diastolic 55–95; PULSE 60–88; RESP 12–20; TEMP 36.6–36.9; O2SAT 94–100; BMI 38.6
--- OUTSIDE RECORDS SUMMARY | 2025-04-24 00:48 | XMS_ITS | Encounter Summary ---
Author Organization [facility] Health Address [address] [place] [address] Care Team Providers Care Pipe Layer Name Role Phone Roberto Carlos Birmingham DO Primary Care Provider Encounter Details Date Type Department Care Team (Late st Contact Info) Description 12/10/2024 Telephone [facility] - Dermatology [address] [place] [address], [facility] [place] [address] Natali Santillan PA [address] [place] [address] [address] [place] [phone] Social History Tobacco Use Types Packs/Day Years Used Date Smoking Tobacco: Never Smokeless Tobacco: Never Alcohol Use Standard Drinks/Week Comments Yes 0 (1 standard drink = 0.6 oz pur e alcohol) 1/ day Comments No Sex and Gender Information Value Date Recorded Sex Assigned at Not on file Legal Sex Female 9:58 PM CARDIOPULMONARY TECHNICIAN AND EEG TECH Gender Identity Not on file Sexual Orientation Not on file documented as of this encounter Miscellaneous Notes * Telephone Encounter - Candy Powers - 12/10/2024 12:03 PM CDT Called and spoke with CHARLES/Heron BARAJAS regarding Otezla. I was told the Appeal was denied and they will fax the denial. I will fax the denial letter to [facility] so the patient stays eligible for bridge. Candy Powers- Pharmacy Radio Mechanic (Dermatology) * Telephone Encounter - Candy Powers - 12/10/2024 11:54 AM CDT Returned call to [facility] giving PA Denial case ID number and date appeal was faxed. Candy Powers- Pharmacy Radio Mechanic (Dermatology) * Telephone Encounter - Apolonia Tirado - 12/10/2024 8:13 AM CDT Dinah with [facility] calling to get prior auth status for otezla. Good callback number is [phone] documented in this encounter Plan of Treatment Upcoming Encounters Date Type Department Care Team (Late st Contact Info) Description 05/28/2025 8:20 AM CARDIOPULMONARY TECHNICIAN AND EEG TECH Office Visit [facility] - Rheumatology [address] [place] [place] [address], [place] [phone] Will Eden MD [address] [place] [address] [address] [place] [address] Kira Leon MD [address] [place] [address] [address] [place] [phone] 06/09/2025 2:50 PM CARDIOPULMONARY TECHNICIAN AND EEG TECH Office Visit [facility] - Dermatology [address] [place] [place] [address], [place] [address] Inna Trammell MD [address] [place], [place] [address] [address] documented as of this encounter Visit Diagnoses Not on filedocumented in this encounter Care Teams Pipe Layer Relationship Specialty Start Date End Date Roberto Carlos Birmingham DO [address] [facility] [address] [facility] [address] [place] [address] PCP - General Internal Medicine 06/01/16 documented as of this encounter
--- OUTSIDE RECORDS SUMMARY | 2025-04-24 00:48 | XMS_ITS | Encounter Summary ---
Author Organization [facility] Health Address [address] [place] [address] Care Team Providers Care Psychiatry Adult Physician Name Role Phone Roberto Carlos Birmingham DO Primary Care Provider Reason for Visit * Reason Onset Date Comments Med Question 01/14/2025 Encounter Details Date Type Department Care Team (Late st Contact Info) Description 01/14/2025 Telephone [facility] - Centralized Scheduling [address] [place] [address] Natali Santillan, MAGGIE [address] [place] [address] Med Question Social History Tobacco Use Types Packs/Day Years Used Date Smoking Tobacco: Never Smokeless Tobacco: Never Alcohol Use Standard Drinks/Week Comments Yes 0 (1 standard drink = 0.6 oz pur e alcohol) 1/ day Comments No Sex and Gender Information Value Date Recorded Sex Assigned at Not on file Legal Sex Female 9:58 PM PRODUCT DESIGNER Gender Identity Not on file Sexual Orientation Not on file documented as of this encounter Progress Notes * Candy Powers - 02/25/2025 9:33 AM CDT Medication Prior Authorization: Medication: [id number] tab Status: Denied. Reason for denial: patient cannot use in combination with biologic (currently prescribed Skyrizi) Submitted via: Cover My Meds (Herrera: [id number]) Insurance: CHARLES Shelby (p: [phone]) (f: [phone]) Case/Reference number: ID: [id number] RX Card Billing Info: BIN: [id number] PCN: [id number] GROUP: [id number] ID: [id number] PA denial notice uploaded to media tab. Uploaded denial notice to [facility] pharmacy portal. Patient is enrolled in pharmacy's bridge program. Candy Powers- Pharmacy Adjunct Mathematics Instructor (Dermatology) documented in this encounter Miscellaneous Notes * Telephone Encounter - Candy Powers - 02/24/2025 3:00 PM CDT PA submitted forcontinuation of therapy [email or web address] tab bid via [email or web address] currently waiting on decision. Herrera: [id number] Provider:[id number] (Aaron Powers [facility] - Pharmacy Adjunct Mathematics Instructor * Telephone Encounter - Candy Powers - 01/15/2025 2:14 PM CDT Faxed 2nd Level appeal denial to [employer] program. Candy Powers- Pharmacy Adjunct Mathematics Instructor (Dermatology) * Telephone Encounter - Cindy Quintana - 01/14/2025 11:59 AM CDT [employer] is calling for the status appeal for apremilast (Otezla) 10 & 20 & 30 MG tablet documented in this encounter Plan of Treatment Upcoming Encounters Date Type Department Care Team (Late st Contact Info) Description 05/28/2025 8:20 AM PRODUCT DESIGNER Office Visit [facility] - Rheumatology [address] [place] [address], [place] [phone] Will Eden MD [address] [place] [address] [address] [place] [address] Kira Leon MD [address] [place] [address] [address] [place] [phone] 06/09/2025 2:50 PM PRODUCT DESIGNER Office Visit [facility] - Dermatology [address] [place] [address], [place] [address] Inna Trammell MD [address] [place], [place] [address]T [place] [phone] documented as of this encounter Visit Diagnoses Not on filedocumented in this encounter Care Teams Psychiatry Adult Physician Relationship Specialty Start Date End Date Roberto Carlos Birmingham DO [address] [facility] [address] [facility] [address] [place] [address] PCP - General Internal Medicine 06/01/16 documented as of this encounter
--- OUTSIDE RECORDS SUMMARY | 2025-04-24 00:48 | XMS_ITS | Data Portability ---
Author Organization [facility] l Professional, Radiology_ Address [address] [place] [address] Care Team Providers Care Nurse Extern Name Role Phone MICHELLE ROSS Primary Care Provider [phone] Assessment Encounter Date Assessment Date Assessment LastModified [...] Lab urinalysi s, dipstick 2017 018 tbeaudreaida [facility] [place] [place]_main Office, [address], [address], [place], [address], 8 10:45:03 culture, urine + sensitivi ty 2017 018 [facility] [address], [address], [place], [address], 8 09:18:18 Referral None recorded. Procedures None recorded. Surgeries None recorded. Imaging None recorded. Medication Orders cyclobenz aprine 10 mg tablet 2017 018 INTERFACE Not available 8 12:27:26 [place] 5 mg-325 mg tablet 2017 vcradic Not available 8 12:53:25 naproxen 500 mg tablet 2017 018 INTERFACE Not available 8 12:27:26 Patient TargetsNo targets recorded. Patient Instructions Encounter Date Encounter Id Patient Instructions Last Modified By Organization Details Last Modified Time 11/17/2017 [id number] Range of motion back stretching exercise. No [...] URINE CULTU RE FINAL REPOR T (# [id number]) Speci men Urine CUL TURE* * No growt h (<1,0 00 cfu/m L) [facility] [address] [facility] [address], [facility], [place], [facility] [address] Labor atory Direc tor: Jace Merlos M.D. CLIA #[id number] Medic al Labor atory Direc tor: JACE MERLOS M.D. CLIA# CLIA- [id number] Not Available [facility] [address] [place], [address], 11/19/2017 00:19:12 Result Notes None recorded. Problems Name Problem SNOMED Code Status Onset Date Resolution Date Notes Provider Name and Address Organization Details Recorded Time Varicella 24364596 Completed 201711/17/2017 [facility] 8 11:27:09 Heartburn 45567651 Active 2017 Hemalatha armenta [facility] Professional 8 11:27:15 Arthritis 0621825 Active 2017 Hemalatha armenta [facility] Professional 8 11:27:19 Backache 408056983 Active 2017 Hemalatha armenta [facility] Professional 8 11:27:25 Hemorrhoid s 36543028 Active 2017 Hemalatha armenta [facility] Professional 8 11:27:38 Problem Notes None recorded. Procedures Surgical History Date Name Laterality Status Provider Name and Address Organization Details Recorded Time Knee Surgery completed Hemalatha Fournier [facility] Medical Professional 11/17/2017 11:29:21 Imaging Results None recorded. [...] Not available Not available Not available 11/17/2017 [id number] SNOMED Hemalatha armenta [facility] Professional 8 11:26:48 Medications Name Sig Start Date Stop Date Status Note LastModified by Organization Details LastModified Time cyclobenzaprine 10 mg tablet Take 1 tablet 3 times a day by oral route as needed. 2017 active Not Available Not Available Not Avai lable [place] 5 mg-325 mg tablet Take 1 tablet [...] in Arterial blood by Pulse oximetry Systolic And Diastolic Provider Name and Address Organization Details Last Updated DateTime 8 67 /min 18 /min 97 [degF] 17747.7 9 g 99 % 99 % 126/84 mm[Hg] Hemalatha Amaya [facility] Professional 8 11:26:33 Social History Question Answer Notes LastModified by Organizat ion Details LastModified Time Tobacco Smoking Status Former Smoker Hemalatha armenta [facility] Professional 11/17/2017 11:28:57 Which Illicit Or Recreational Drugs Have You Used? None Information not available 11/17/2017 What Was The Date Of Your Most Recent Tobacco Screening? 11/17/2017 Information not available 02/05/2019 Sex: Unknown Functional Status Question Answer Note LastModified by Organization D etails LastModified Time What is your level of alcohol consumption? Moderate Information not available 11/17/2017 Mental Status None recorded. Family History Relationship Description Onset Age of this Age Resolved Age Notes LastModified by Organization Details LastModified Time Father Diabetes mellitus Not available 2017 11:28:05 Father Hypertensive disorder Not available 2017 11:28:38 Maternal Grandmother Diabetes mellitus Not available 2017 11:28:05 Paternal Aunt Malignant neoplasm of breast Not available 2017 11:28:24 Medical History Condition Response Coronary Artery Disease N Other N Gout N Kidney Stones N Blood Diseases N Hyperthyroidism N Breast Cancer N Blood Transfusion N Depression N COPD N Lung Disease N Hypothyroidism N Developmental or Behavioral Disorders N Defects or Inherited Disease N Breast Problem N Difficulty Swallowing N Anesthesia Complications N Meniere's disease N Anxiety Disorder N Muscle, Joint, or Bone Problems N Obesity N Vision or Eye Problems N Arthritis N Polyps N Infertility N Mental Disorder N Cancer N Varicosities N Stroke N Endometriosis N Bladder or Kidney Problems N High Cholesterol N Liver Disease N Headaches N Fibromyalgia N Kidney Disease N Allergies/Hayfever N Heart Problems N Ear or Hearing Problems N Hospitalizations N Thyroid Problems N GI Problems N ADD/ADHD N Skin Problems N Eating Disorder N Anemia N MRSA exposure N Constipation N Mental Illness N Ovarian Cancer N Diabetes N Bedwetting N Seizures/Epilepsy N Tuberculosis N AIDS/HIV N Congestive Heart Failure (CHF) N Eczema N Diverticulitis N Abuse/Domestic Violence N Asthma N Reflux/GERD N Hepatitis N Heart Disease N Pulmonary Embolism N Pre-Eclampsia N Hypertension N Chronic Ear Infections N Osteoporosis N Chicken Pox N Autism Spectrum Disorder (ASD) N Thrombophilias N Gynecological HistoryNo gynecological history recorded. Obstetrics History GPAL:G 0 P 0 0 0 0 Past Encounters Encounter ID Performer Location Encounter Start Date Encounter Closed Date Diagnosis/Indication Diagnosis SNOMED-CT Code Diagnosis ICD10 Code Diagnosis IMO Codes Diagnosis Note [id number] LAUREANO POOL [facility] N OFFICE [address], [address] [place] [address] 11/17/2017 11:13:59 12/17/2017 20:37:01 Acute low back pain 073714857 M54.5 Health Concerns Section Related Observation LastModified by Organization Detai ls LastModified Time None Recorded Concern Status LastModified by Organization Details LastModified Time None Recorded Advance Directives Directive None Recorded Payers Insurance Date Sequence Insurance Name Policy Number Policy Menard Covered Member ID Menard Member ID Guarantor Name 12/17/2017 1 [place] [id number] Frederick Chiu [id number] Frederick Chiu Notes Date Note Type Note Provider Name and Address Organization Details Recorded Time 11/17/2017 text/html Back PainReporte d by Patient Pt presents to Urgent care for c/o [...] heavy lifting except for walking in the [place] the day before. No pain radiating to legs. No bowel or bladder incontinence. No saddle anesthesia. No fever. No dysuria, urinary frequency or urgency. No chest pain or shortness of breath LAUREANO POOL [address], [place], [address], [facility] Medical Professional 11/17/2017 13:03:38 OBGyn Episode No OBEpisode recorded.
--- OUTSIDE RECORDS SUMMARY | 2025-04-24 00:49 | XMS_ITS | Clinical Summary ---
Author Organization [facility] Address [address] [facility] [place] [address] Care Team Providers Care Lift Slab Operator Name Role Phone Roberto Carlos Birmingham DO Primary Care Provider [phone] Source Comments [facility],non-owned Affiliates and Associated Physician Practices is amultiple site organization consisting of ambulatory clinics and hospital sitesin [place], [place], [place] and [place]. This disclosure is being madepursuant to the Care Everywhere program and may not contain all information available regarding this patient. Last updated 18.[facility] Allergies Active Allergy Reactions Criticality Noted Date Comments Sulfa Drugs Nausea and/or Vomiting 08/24/2019 Early adulthood allergy. Medications * Be aware that medications may not be up to date on this document. Alwaysverify current medications with the patient. vitamin D, ergocalciferol, (Drisdol) 1.25 MG (41587 UT) capsule 05/14/2023 Active naltrexone (Revia) 50 MG tablet Take 1 (one) tablet by mouth once daily 11/05/2023 Active apremilast (Otezla) 10 & 20 & 30 MG tabletIndicatio ns:Other psoriasis Please take pills daily as outlined: [...] 6 and thereafter: 30 mg twice daily 11/18/2024 Active Apremilast (Otezla) 30 MGIndications:O ther psoriasis Take 1 (one) tablet by mouth 2 times daily 60 tablet 12/05/2024 Active Apremilast (Otezla) 30 MGIndications:O ther psoriasis Take 1 (one) tablet by mouth 2 times daily 60 tablet 12/05/2024 Active Apremilast (Otezla) 30 MGIndications:O ther psoriasis Take 1 (one) tablet by mouth 2 times daily 60 tablet 12/09/2024 Active risankizumab-rz aa (Skyrizi Pen) 150 MG/ML injectionIndica tions:Other psoriasis INJECT 1 PEN UNDER THE SKIN EVERY 12 WEEKS 1 mL 02/19/2025 Active Active Problems Problem Noted Date Diagnosed [...] Description 03/04/2025 2:00 PM CDT Office Visit [facility] - Dermatology [address] [facility], [place] [address] Inna Trammell MD Seborrheic keratosis, inflamed (Primary Dx); Psoriasis vulgaris; High risk medications (not anticoagulants) long-term use 03/04/2025 Travel 02/19/2025 Refill [facility] - General Dermatology [address], [address] [place] [address] Inna Trammell MD Refill Request from Last 3 Months Social History Tobacco Use Types Packs/Day Years Used Date Smoking Tobacco: Never Smokeless Tobacco: Never Tobacco Cessation:Counseling Given: Not Answered Alcohol Use Standard Drinks/Week Comments Yes 0 (1 standard drink = 0.6 oz pur e alcohol) 1/ day Comments No Sex and Gender Information Value Date Recorded Sex Assigned at Not on file Legal Sex Female 9:58 PM POLICE DETECTIVE Gender Identity Not on file Sexual Orientation Not on file Last Filed Vital Signs Vital Sign Reading Time Taken Comments Blood Pressure 136/84 08/15/2020 3:14 PM POLICE DETECTIVE Pulse 67 08/15/2020 3:14 PM POLICE DETECTIVE Temperature 36.8 C (98.2 F) 08/15/2020 3:14 PM POLICE DETECTIVE Respiratory Rate 17 08/15/2020 3:14 PM POLICE DETECTIVE Oxygen Saturation 98% 08/15/2020 3:14 PM POLICE DETECTIVE Inhaled Oxygen Concentration - - Weight 79.8 kg (176 lb) 08/15/2020 3:14 PM POLICE DETECTIVE Height 152.4 cm (5') 08/15/2020 3:14 PM POLICE DETECTIVE Body Mass Index 34.37 08/15/2020 3:14 PM POLICE DETECTIVE Plan of Treatment Upcoming Encounters Date Type Department Care Team (Late st Contact Info) Description 05/28/2025 8:20 AM POLICE DETECTIVE Office Visit [facility] - Rheumatology [address] [place] [address], [place] [address] Will Eden MD [address] [place] [place] [address] [address] [place] [address] Kira Leon MD [address] [place] [address] 2L [place] [address] 06/09/2025 2:50 PM POLICE DETECTIVE Office Visit [facility] - Dermatology [address] [place] [address], [place] [address] Inna Trammell MD [address] [place], [place] [address]T [place] [address] Health Maintenance Due Date Last Done Comments [...] Procedure Name Priority Date/Time Associated Diagnosis Comments SC DESTRUCT BENIGN LESION, 1-14 Routine 03/04/2025 2:33 PM CDT Seborrheic keratosis, inflamed HEPATITIS C ANTIBODY Routine 08/20/2023 5:15 PM POLICE DETECTIVE Arthritis from Last 3 Months or Most Recently Relevant to Health Maintenance Results * SC DESTRUCT BENIGN LESION, 1-14 (03/04/2025 2:33 PM [...] * HEPATITIS C ANTIBODY (08/20/2023 5:15 PM POLICE DETECTIVE) Hepatitis C Antibody Non-react octavio Non-reac tive 08/20/2023 6:55 PM POLICE DETECTIVE [facility] Comment:Hepatitis C Antibody screen indicates no serologic evidence of past or current infection with Hepatitis C Virus. Patients with unexplained liver disease who are immunocompromised or suspected of having acute Hepatitis C infection may benefit from Nucleic Acid Test (SHANNON) for Hepatitis C Viral RNA to confirm Hepatitis C status. Blood BLOOD SPECIMEN / Unknown Lab Venipuncture / Unknown 08/20/2023 5:15 PM POLICE DETECTIVE 08/20/2023 6:22 PM POLICE DETECTIVE us Inna Trammell MD LAB - CHEMISTRY ORDERABLES Jessica l Result [facility] [address] [place] [address], [facility] [phone] from Last 3 Months or Most Recently Relevant to Health Maintenance Insurance [facility] SELF PAY NO INSURANCE Member Subscriber Plan / Payer (Ef fective for All Dates) Name:Janet Mcqueen Member ID:Not on file Relation to Subscriber:Not on file Name:JANET MCQUEEN Subscriber ID:Not on file (Home) Address: [address] [place] [id number] Payer ID:Not on file Group ID:Not on file Type:Self Pay Address: [place], [place] Care Teams Lift Slab Operator Relationship Specialty Start Date End Date Roberto Carlos Birmingham DO [address] [facility] [address] [facility] [address] [place] [address] PCP - General Internal Medicine 06/01/16
--- OUTSIDE RECORDS SUMMARY | 2025-04-24 00:49 | XMS_ITS | Encounter Summary ---
Author Organization [facility] Health Address [address] [facility] [place] [address] Care Team Providers Care Shotblaster Name Role Phone Roberto Carlos Birmingham DO Primary Care Provider [phone] Reason for Visit * Reason Onset Date Comments Nurse Only 08/30/2023 Encounter Details Date Type Department Care Team (Late st Contact Info) Description 08/30/2023 Telephone [facility] - Centralized Scheduling [address] [place] [address] Inna Trammell MD [address] [facility] [place] [place] [address] Nurse Only Social History Tobacco Use Types Packs/Day Years Used Date Smoking Tobacco: Never Smokeless Tobacco: Never Alcohol Use Standard Drinks/Week Comments Yes 0 (1 standard drink = 0.6 oz pur e alcohol) 1/ day Comments No Sex and Gender Information Value Date Recorded Sex Assigned at Not on file Legal Sex Female 9:58 PM VP OF GLOBAL MARKETING Gender Identity Not on file Sexual Orientation Not on file documented as of this encounter Miscellaneous Notes * Telephone Encounter - Candy Powers - 09/03/2023 9:18 AM CST Called and lft for patient to give me a call back at my direct phone line ([phone]). I emailed patient portion of [employer] Application to patient's email and waiting for provider to complete her portion as well. Once application portions are signed I will fax to [employer]. Candy Powers OF GLOBAL MARKETING * Telephone Encounter - Sarika Trammell - 08/30/2023 4:05 PM CST Pt is calling dx Psorasis, she is having issues with Skyrizi,pt does not have prescription yet the cost is 6000$ and she is also calling to see what her results where for biopsy, pt would like to speak to the office OF GLOBAL MARKETING documented in this encounter Plan of Treatment Upcoming Encounters Date Type Department Care Team (Late st Contact Info) Description 05/28/2025 8:20 AM VP OF GLOBAL MARKETING Office Visit [facility] - Rheumatology [address] [place] [address], [place] [address] Will Eden MD [address] [place] [address] [address] [place] [address] Kira Leon MD [address] [place] [address] 2[address] [place] [address] 06/09/2025 2:50 PM VP OF GLOBAL MARKETING Office Visit [facility] - Dermatology [address] [place] [address], [place] [address] Inna Trammell MD [address] [place], [place] [address]T [place] [address] documented as of this encounter Visit Diagnoses Not on filedocumented in this encounter Care Teams Shotblaster Relationship Specialty Start Date End Date Roberto Carlos Birmingham DO [address] [facility] [address] [facility] [address] [place] [address] PCP - General Internal Medicine 06/01/16 documented as of this encounter
--- OUTSIDE RECORDS SUMMARY | 2025-04-24 00:49 | XMS_ITS | Clinical Summary ---
Author Organization [facility] Address [address] [place] [address] Care Team Providers Care Laboratory Associate Name Role Phone Napoleon Gutierrez DO Primary Care Provider [phone] Allergies Active Allergy Reactions Criticality Noted Date [...] on file Legal Sex Female 4:21 AM CASH SPECIALIST Gender Identity Not on file Sexual Orientation [...] Height 152.4 cm (5') 06/16/2023 11:29 AM CASH SPECIALIST Body Mass Index 32.42 06/16/2023 11:29 AM CASH SPECIALIST Plan of Treatment Health Maintenance Due Date Last Done Comments Cervical Cancer Screening 1970 Colon Cancer Screening-Colonoscopy 1970 Depression Screening 1970 Hepatitis C Screening 1970 DTaP/Tdap/Td Vaccine (1 - Tdap) 1981 Hepatitis B Screening 1988 Regular Well Visit/Exam 18-64 1988 Zoster Vaccine (1 of 2) 2020 Covid-19 Vaccine (3 - season) 2025 08/11/2021, 10/21/2020 Influenza Vaccine (#1) 2025 Breast [...] compared to prior imaging studies performed at [facility] on 02/03/2021, 02/17/2022 and 05/10/2023. There [...] compared to prior imaging studies performed at [facility] on 02/03/2021, 02/17/2022 and 05/10/2023. There are scattered areas of fibroglandular density. There is no suspicious abnormality in either breast. Impression: There is no mammographic evidence of malignancy. Annual screening mammography is recommended. OVERALL FINAL ASSESSMENT: BI-RADS CATEGORY 1: Negative. us Self Screening Mammogram IMG MAMMO PROCEDURES Fi nal Result from Last 3 Months or Most Recently Relevant to Health Maintenance Insurance [employer] Care Teams Laboratory Associate Relationship Specialty Start Date End Date Napoleon Gutierrez DO PCP - General Internal Medicine 02/20/24
--- OUTSIDE RECORDS SUMMARY | 2025-04-24 00:49 | XMS_ITS | Encounter Summary ---
Author Organization [facility] Health Address [address] [facility] [place] [address] Care Team Providers Care Social Media Marketer Name Role Phone Roberto Carlos Birmingham DO Primary Care Provider [phone] Encounter Details Date Type Department Care Team (Late st Contact Info) Description 09/19/2023 Telephone [facility] - Dermatology [address] [place] [address], [facility] [place] [address] Inna Trammell MD [address] [place] [address] [place] [address] Social History Tobacco Use Types Packs/Day Years Used Date Smoking Tobacco: Never Smokeless Tobacco: Never Alcohol Use Standard Drinks/Week Comments Yes 0 (1 standard drink = 0.6 oz pur e alcohol) 1/ day Comments No Sex and Gender Information Value Date Recorded Sex Assigned at Not on file Legal Sex Female 9:58 PM HUC OB Gender Identity Not on file Sexual Orientation Not on file documented as of this encounter Miscellaneous Notes * Telephone Encounter - Mariah Suarez - 09/19/2023 9:39 AM CST Patient stated she is returning a call to speak with Candy. Please advise OB documented in this encounter Plan of Treatment Upcoming Encounters Date Type Department Care Team (Late st Contact Info) Description 05/28/2025 8:20 AM HUC OB Office Visit [facility] - Rheumatology [address] [place] [address], [place] [address] Will Eden MD [address] [place] [address] [address] [place] [address] Kira Leon MD [address] [place] [address] [address] [place] [address] 06/09/2025 2:50 PM HUC OB Office Visit [facility] - Dermatology [address] [place] [address], [place] [address] Inna Trammell MD [address] [place], [place] [address] [address] documented as of this encounter Visit Diagnoses Not on filedocumented in this encounter Care Teams Social Media Marketer Relationship Specialty Start Date End Date Roberto Carlos Birmingham DO [address] [facility] [address] [facility] [address] [place] [address] PCP - General Internal Medicine 06/01/16 documented as of this encounter
--- OUTSIDE RECORDS SUMMARY | 2025-04-24 00:49 | XMS_ITS | Encounter Summary ---
Author Organization [facility] Health Address [address] [facility] [place] [address] Care Team Providers Care Inspector Fabric Name Role Phone Roberto Carlos Birmingham DO Primary Care Provider Reason for Visit * Reason Onset Date Comments Med Question 12/09/2024 Encounter Details Date Type Department Care Team (Late st Contact Info) Description 12/09/2024 Telephone [facility] - Centralized Scheduling [address] [place] [address] Inna Trammell MD [address] [facility] [place] [address] Med Question Social History Tobacco Use Types Packs/Day Years Used Date Smoking Tobacco: Never Smokeless Tobacco: Never Alcohol Use Standard Drinks/Week Comments Yes 0 (1 standard drink = 0.6 oz pur e alcohol) 1/ day Comments No Sex and Gender Information Value Date Recorded Sex Assigned at Not on file Legal Sex Female 9:58 PM PLANT CHANGER Gender Identity Not on file Sexual Orientation Not on file documented as of this encounter Miscellaneous Notes * Telephone Encounter - Tawanna Bauer - 12/10/2024 11:22 AM CDT Called pharmacy advised pt does not need loading dose this was provided in clinic on 11/18/24. Pharmacy advised pt medication is scheduled for delivery on 12/12/24. Tawanna Bauer * Telephone Encounter - Burgos Betzaida - 12/09/2024 8:23 AM CDT Patient's pharmacy called asking if someone can call them in regards to patient's prescription, Otezla. They are trying to figure out if she needs loading does or not [facility] [phone] documented in this encounter Plan of Treatment Upcoming Encounters Date Type Department Care Team (Late st Contact Info) Description 05/28/2025 8:20 AM PLANT CHANGER Office Visit [facility] - Rheumatology [address] [place] [address], [place] [address] Will Eden MD [address] [place] [address] [address] [place] [address] Kira Leon MD [address] [place] [address] [address] [place] [address] 06/09/2025 2:50 PM PLANT CHANGER Office Visit [facility] - Dermatology [address] [place] [address], [place] [address] Inna Trammell MD [address] [place], [place] [address]T [place] [address] documented as of this encounter Visit Diagnoses Not on filedocumented in this encounter Care Teams Inspector Fabric Relationship Specialty Start Date End Date Roberto Carlos Birmingham DO [address] [facility] [address] [facility] [address] [place] [address] PCP - General Internal Medicine 06/01/16 documented as of this encounter
--- NOTE | 2025-04-24 06:34 | WPDHPUPDATE1 ---
History and Physical Update Update Date/Time: 04/24/25 06:34 History and Physical has been reviewed, including an updated exam of the patient. There are NO changes in the patient's condition. Risks, benefits, and alternatives have been discussed and questions answered. Patient agrees to proceed with procedure.
[2025-04-24] MEDS: LACTATED RINGERS 1,000 ML 30 ML IV CONT ×2 (12:05→14:15)
[2025-04-24] MEDS: ACETAMINOPHEN 500 MG TABLET 1000 MG PO ×3 (12:10→23:45)
[2025-04-24] MEDS: KETOROLAC 15 MG/ML VIAL (*BKC) IV PUSH (12:10)
--- NOTE | 2025-04-24 12:27 | WPDANESEPPF ---
Anes - Initial Pre Proc Eval Procedure: Operation Date: 04/24/25 13:30 Proposed Procedures p Robotic Assisted Total Vaginal Hysterectomy with Bilateral Salpingectomy - Mahin Lyles MD Date/Time: 04/24/25 12:27 Surgeon: Mahin Lyles MD Pre Op Diagnosis: high grade dysplasia, pelvic pain Patient Data Age: 54 Gender: F Height: 1.52 m Weight: 89.7 kg Last Vital Signs Temp 36.7 C 04/24/25 11:30 Pulse 68 04/24/25 11:30 Resp 18 04/24/25 11:30 BP 148/63 H 04/24/25 11:30 Pulse Ox 100 04/24/25 11:30 O2 Del Method Room Air 04/24/25 11:30 Allergies Allergy/AdvReac Type Severity Reaction Status Date / Time Sulfa (Sulfonamide Allergy Mild unknown-as Verified 04/24/25 11:44 Antibiotics) a child Home Medications ?Medication ?Instructions ?Recorded ?Confirmed ?Type ergocalciferol (vitamin D2) 1,250 1,250 mcg PO WEEKLY 03/23/21 04/23/25 History mcg (50,000 unit) capsule risankizumab-rzaa 150 mg/mL 150 mg subcut ONCE 09/05/23 04/23/25 History subcutaneous pen injector (Skyrizi) apremilast 30 mg tablet (Otezla) 30 mg PO BID 03/11/25 04/20/25 History Held on 04/20/25. Instructions: holding for surgery for over one week per Dermatology ascorbic acid (vitamin C) 500 mg 500 mg PO DAILY 03/11/25 04/23/25 History tablet (C-500) estradiol-norethindrone acet 1 1 tablet PO DAILY 03/11/25 04/23/25 History mg-0.5 mg tablet (Mimvey) sour chauhan extract 1,000 mg 1,000 mg PO DAILY 03/11/25 04/23/25 History capsule (Tart Chauhan Extract) turmeric 400 mg capsule 1,000 mg PO DAILY 03/11/25 04/23/25 History multivitamin with minerals-folic tablet PO DAILY 04/20/25 04/23/25 History acid 200 mcg chewable tablet red beet 250 mg-sour chauhan 1 tablet PO DAILY 04/20/25 04/23/25 History extract 0.5 mg chewable tablet estradiol-norethindrone acet 1 1 tablet PO DAILY 04/23/25 04/23/25 History mg-0.5 mg tablet (Mimvey) semaglutide (weight loss) 0.25 0.25 mg (0.5 mL) subcut WEEKLY #2 04/23/25 04/23/25 Rx mg/0.5 mL subcutaneous pen mL injector (Wegovy) hydrocodone 5 mg-acetaminophen 325 1 tablet PO Q4H PRN pain #20 tabs 04/24/25 Rx mg tablet Patient hx anesthesia problems: none Family hx anesthesia problems: none Results Review: All pre-operative results and documents have been reviewed as part of the pre-operative evaluation. [facility] Past Medical History Medical History (Updated 04/23/25 @ 15:54 by Eligio Adamson DO) Fibroid GERD (gastroesophageal reflux disease) Cervical vertebral fusion Torn meniscus Colon cancer screening Obesity (BMI 30-39.9) Surgical History Surgical History H/O arthroscopic knee surgery History of bunionectomy Family History Family History Mother Family history of liver disease, Onset Age: 46 Patient's mother is Father Family history of diabetes mellitus in first degree relative, Onset Age: 64 Patient's father is Sibling , pulmonary edema No problems noted. Sibling No problems noted. Social History Social History Smoking packs per day: 1 Smoking cigarettes per day: 20.0 Years smoked: 15 Smoking pack-years: 15.00 Smoking status: Former smoker Tobacco type: cigarettes Second hand tobacco smoke exposure: No Smoking end date: 03/11/05 Alcohol intake: current Drinks per week: 10 Substance use: never Substance use type: does not use Do You Feel Safe in your Home?: Yes Lack of Transportation: No Lack of Food: Never True Current Housing: I Have Housing Concerned About Future Housing: No Difficulty Paying Gas/Electric Bills: No Difficulty Paying for Meds: YES Currently Unemployed: No Education: High School Diploma/GED Difficulty w/ Childcare or Family Care: No Living arrangements: other Additional living arrangements comments: I have a partner Occupation/Education: occupation 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 Gender identity (if verbalized by the patient): Female Spiritual care concerns: No Anes - Eval Final PreProcedure Day of Procedure 04/24/25 12:27 Patient weight: obese Heart: regular rate and rhythm Lungs: clear to auscultation Airway: Mallampati scale class II Neurological: alert and oriented Last oral intake: >/= 8 hours ASA classification: II Emergent: no Anesthetic plan: proceed Anesthesia type and monitoring: general ETT and standard monitoring Results Review: All pre-operative results and documents have been reviewed as part of the pre-operative evaluation. Informed Consent: The patient's anesthetic plan and its attendant risks and benefits were discussed with the patient/family/POA. Questions were solicited and answers provided to the satisfaction of the patient/family/POA.
[2025-04-24] MEDS: ceFAZolin 2 GM in SODIUM CHLORIDE 0.9% IV 50 ML 100 ML IVPB (12:57)
--- NOTE | 2025-04-24 13:44 | S_PTH ---
PATIENT: Janet Chiu LOC: [facility] U#:[id number] AGE/SX: 54/F ROOM: RE04/24/[address]: Mahin Lyles MD : 1970 BED: DIS: 04/25/2025 SPEC #: [id number] RECD: 04/24/25 14:19 STATUS: [place] REQ #: [id number] JADE: 04/24/25 13:[address]: Mahin Tarn DEPT: [facility] Surgical RECD BY: Yasmeen Mancuso ENTERED: 04/24/25 14:19 SP TYPE: Surgical OTHR DR: Napoleon Gutierrez DO Tissues: A - Uterus Procedures: Hematoxylin and Eosin Stain Gross and Microscopic Level 5
--- NOTE | 2025-04-24 14:13 | P.OP_ITS ---
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 Normal-appearing ovaries and tubes. Description of Procedure Patient was prepped draped sterile fashion placed in dorsal lithotomy position. Excellent general endotracheal anesthesia weighted speculum placed posterior fornix vagina. Anterior lip the cervix grasped with single-tooth uterus sounded to 9cm. Serial dilatation with fragmented dilators performed followed passes 8 3 cold. The weighted speculum single-tooth removed. Bladder was then emptied with 16 Icelandic catheter. The gloves were changed A supraumbilical incision made the Veress needle passed in the abdomen. Abdomen filled with CO2 gas to 15 of mercury. The 8mm trocar advanced in the abdomen. Downside visualized no injury seen. Patient placed in Trendelenburg and right left lateral quadrant incisions made. 8mm trocars advanced under direct visualization assuring right upper quadrant incision made and the 8mm trocar advanced under direct visualization assuring no injury. The robot was docked. Attention was turned to the corrections counselor. The left round ligament was grasped, burned, cut. Anterior bladder flap was formed by sharply dissecting the peritoneum away from the cervix uterus the opposite round ligament which was clamped, burned, cut. Next the left infundibulopelvic structure was skeletonized to remove the left ovary and tube this was clamped, burned, cut and brought to the level of the previously cut round ligament. In similar fashion to remove the right ovary and tube the infundibulopelvic structure was skeletonized. This was clamped, burned, cut and brought to level of previously cut round ligament. The cardinal broad ligaments on the left were serially skeletonized clamping burning cutting until the uterine vessels could be seen on the left these were large and tortuous and round individually clamped, burned, cut. In similar fashion on the right the cardinal broad ligaments were skeletonized clamping burning cutting and bringing the these incisions down to the uterine vessels these were individually clamped, burned, cut. Blanching the uterus was noted and a colpotomy incision made. Cervix uterus and ovaries removed through the vagina. The vagina was then closed with continuous running 0V lock from lateral edge to lateral edge back to midline. Hemostasis was assured irrigation was undertaken the raw surface areas were sprinkled with Yenny. The robot was undocked. The gas removed from the abdomen. The trocar sites removed and the incisions closed 4-0 Monocryl and glue. The patient was awakened went recovery in satisfactory condition. All sponge, needle, instrument counts were correct. There were no immediate complications from Estimated Blood Loss 25 Drains No Packing No Pathology Yes Complications No immediate complications Condition Stable Disposition PACU
--- NOTE | 2025-04-24 14:17 | P.DS_ITS ---
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 She remained afebrile. She was up, voiding without difficulty, eating regular diet, ambulating, and generally without complaints. Time Spent with Patient Time attestation: Total time spent providing and/or coordinating discharge services: Exam Const: General: cooperative, healthy appearing and comfortable Nutritional Appearance: average body habitus Orientation/consciousness: oriented to person, oriented to place and oriented to time HENMT: Head: normal to inspection Resp: Effort & Inspection: normal respiratory effort Cardio: Rate: regular rate Rhythm: regular rhythm Heart sounds: S1 normal heart sound present and S2 normal heart sound present GI: Inspection: normal to inspection and incision (Wounds are clean dry and intact) DS: Data Data Completed and Pending Pending studies at discharge: Pending at discharge 04/24/25 13:44 Surgical [PTH] Routine Discharge Plan Discharge Patient Disposition: Home Patient Language: Faroese Stand Alone Forms: General Discharge Instructions Follow-up/Referrals: Mahin Tran MD [Physician, VIDEO GAME [employer]ER] Discharge Medications: New hydrocodone-acetaminophen 5-325 mg tablet 1 tablet PO Q4H PRN (Reason: pain) Qty: 20 0RF No Action estradiol-norethindrone acet [Mimvey] 1-0.5 mg tablet 1 tablet PO DAILY Wegovy 0.25 mg/0.5 mL pen injector 0.25 mg subcut WEEKLY Qty: 2 0RF Rx Instructions: administer weeks 1 through 4 of therapy; call for next dose Skyrizi 150 mg/mL pen injector 150 mg subcut ONCE Patient Comments: Last dose 03/23/25 takes every 84days and Derm is aware of surgery Rx Instructions: [id number]. ergocalciferol (vitamin D2) 1,250 mcg (50,000 unit) capsule 1,250 mcg PO WEEKLY Rx Instructions: takes on Tuesdays Otezla 30 mg tablet 30 mg PO BID Tart Lee Extract 1,000 mg capsule 1,000 mg PO DAILY ascorbic acid (vitamin C) [C-500] 500 mg tablet 500 mg PO DAILY turmeric 400 mg capsule 1,000 mg PO DAILY estradiol-norethindrone acet [Mimvey] 1-0.5 mg tablet 1 tablet PO DAILY red beet-sour lee extract 250-0.5 mg tablet,chewable 1 tablet PO DAILY Patient Comments: 600mg soft chew daily. multivit with min-folic acid 200 mcg tablet,chewable PO DAILY Patient Comments: [employer] pkg
[2025-04-24] MEDS: fentaNYL CITRATE INJ (*CRX) 100 MCG/2 ML VIAL 25 MCG IV PUSH ×4 (14:38→14:57)
--- NOTE | 2025-04-24 15:20 | ADMGEN ---
This patient, Janet Chiu, was admitted to OB 2nd Floor Room 287-00. Patient/family oriented to hospital policies and general routines including ID bracelet, bed and alarms, visiting hours, pain management, procedures, bathroom and other care routines, personal items, smoking policy, room service/diet, and visiting hours. Information on how to activate the Rapid Response Team has been discussed. Patient/Family are encouraged to report perceived risks to care and to ask questions if they do not understand what they are told or what they should do.
[2025-04-24] MEDS: DEXTROSE 5%/LACTATED RINGERS 1,000 ML 125 ML IV CONT (15:39)
[2025-04-24] MEDS: oxyCODONE HCL (*CRX) 5 MG TAB IR PO ×2 (16:01→19:30)
[2025-04-24] MEDS: KETOROLAC 30 MG/ML VIAL (*BKC) IV PUSH ×2 (17:27→23:45)
[2025-04-24] MEDS: DOCUSATE SODIUM 100 MG CAPSULE PO (17:28)
[2025-04-24] MEDS: SIMETHICONE 80 MG TAB.CHEW PO (17:28)
[2025-04-25] MEDS: oxyCODONE HCL (*CRX) 5 MG TAB IR PO ×3 (00:50→07:58)
[2025-04-25 03:46] VITALS: BP 136/74; PULSE 58; RESP 18; TEMP 36.6; O2SAT 98
[2025-04-25 04:25] LABS: Hematocrit 34.5 % (37.0-47.0); Hemoglobin 11.4 g/dL (12.0-15.0); Immature Granulocyte Percent A 0.6 % (0-0.5); Lymphocytes Absolute Auto 1.41 K/mm3 (0.9-3.2); Mean Corpuscular HGB Conc 33.0 g/dl (32-36); Mean Corpuscular Hemoglobin 32.2 pg (26-34); Mean Corpuscular Volume 97.5 fl (80-100); Nucleated Red Blood Cells Absolute Auto 0.000 K/mm3 (0.0-0.012); Nucleated Red Blood Cells Perc 0.0 % (0.0-0.2); Platelet Count Result 248 k/mm3 (150-375); Red Blood Count 3.54 M/mm3 (4.2-5.4); White Blood Count 11.3 K/mm3 (4.5-10.0)
[2025-04-25] MEDS: ACETAMINOPHEN 500 MG TABLET 1000 MG PO (05:30)
[2025-04-25] MEDS: KETOROLAC 30 MG/ML VIAL (*BKC) IV PUSH (05:30)
--- NOTE | 2025-04-25 06:19 | P.PNOB_ITS ---
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: Code(s): R87.613 - High grade squamous intraepithelial lesion on cytologic smear of cervix (HGSIL) Status: Acute (2) Pelvic pain: Code(s): R10.20 - Pelvic and perineal pain unspecified side Status: Acute (3) Postmenopausal bleeding: Code(s): N95.0 - Postmenopausal bleeding Status: Acute Plan home Postoperative Procedures: Procedures Operation Date: 04/24/25 13:30 Actual Procedure Side Surgeon p Robotic Assisted Total Vaginal Hysterectomy with Bilateral Salpingo- Oophorectomy Bilateral Mahin Lyles MD Time Spent With Patient Time: Total time spent is greater than 50% in coordination of care (as documented) at patient's floor/unit and/or counseling patient: Time with patient: less than 15 minutes [employer]- PN:Subj Post-Op Subjective Date/time seen: 04/25/25 06:19 Subjective: patient reports feeling better, patient has no complaints, patient desires discharge, pain is well controlled and patient is tolerating oral intake Review of Systems 2 Review of Systems: All systems reviewed & are unremarkable except as noted in HPI and below Exam 2 Const: General: cooperative, healthy appearing and comfortable Nutritional Appearance: average body habitus Orientation/consciousness: oriented to person, oriented to place and oriented to time HENMT: Head: normal to inspection Resp: Effort & Inspection: normal respiratory effort Cardio: Rate: regular rate Rhythm: regular rhythm Heart sounds: S1 normal heart sound present and S2 normal heart sound present GI: Inspection: normal to inspection and incision (Wounds are clean dry and intact) [employer] - PN: Obj Data Vital Signs Vital Signs: Vital Signs - 24 hr 04/24/25 11:30 04/24/25 14:15 04/24/25 14:30 Temperature 98.1 F 97.9 F Pulse Rate 68 74 68 Respiratory Rate 18 14 18 Blood Pressure 148/63 H 118/95 H 144/75 H Pulse Oximetry 100 100 100 Oxygen Delivery Room Air Simple Face Mask Simple Face Mask Oxygen Flow Rate 6 6 04/24/25 14:45 04/24/25 15:00 04/24/25 15:12 Temperature Pulse Rate 61 62 60 Respiratory Rate 15 12 15 Blood Pressure 139/72 131/71 120/73 Pulse Oximetry 100 96 94 Oxygen Delivery Room Air Room Air Room Air Oxygen Flow Rate 04/24/25 15:20 04/24/25 15:20 04/24/25 19:30 Temperature 98.2 F Pulse Rate 65 Respiratory Rate 20 Blood Pressure 141/65 H Pulse Oximetry 95 Oxygen Delivery Room Air Room Air Oxygen Flow Rate 04/24/25 21:30 04/24/25 23:45 04/24/25 23:52 Temperature 98.5 F 98.2 F Pulse Rate 88 67 Respiratory Rate 18 17 Blood Pressure 120/62 123/55 L Pulse Oximetry 96 98 Oxygen Delivery Room Air Oxygen Flow Rate 04/25/25 03:46 04/25/25 04:00 Temperature 97.8 F Pulse Rate 58 L Respiratory Rate 18 Blood Pressure 136/74 Pulse Oximetry 98 Oxygen Delivery Room Air Oxygen Flow Rate Intake/Output Intake/Output: Intake & Output 04/22/25 04/23/25 04/24/25 04/25/25 23:59 23:59 23:59 23:59 Intake Total 1400 Output Total 500 350 Balance 900 -350 Meds/Results Medications: Active Medications Generic Name Dose Route Start Last Admin Trade Name Freq PRN Reason Stop Dose Admin Acetaminophen 1,000 mg 04/24/25 18:00 04/25/25 05:30 Acetaminophen 500 Mg Tablet PO 1,000 mg Q6HR JEREL Administration Docusate Sodium 100 mg 04/24/25 17:00 04/24/25 17:28 Docusate Sodium 100 Mg Capsule PO 100 mg BID JEREL Administration Enoxaparin Sodium 40 mg 04/25/25 09:00 Enoxaparin 40 Mg/0.4 Ml Syringe SUB-Q DAILY JEREL Dextrose/Lactated Ringer's 1,000 mls @ 125 mls/hr 04/24/25 15:14 04/24/25 23:40 Dextrose 5%/Lactated Ringers IV CONT Infused .Q8H JEREL Infusion Ibuprofen 600 mg 04/25/25 12:00 Ibuprofen 600 Mg Tablet PO Q6HR JEREL Naloxone HCl 0.1 mg 04/24/25 15:14 Naloxone Hcl 0.4 Mg/Ml Vial IV PUSH Q2M PRN Respiratory rate less than 10 Ondansetron HCl 4 mg 04/24/25 15:14 Ondansetron Inj 4 Mg/2 Ml Vial IV PUSH Q6H PRN Nausea And Vomiting Oxycodone HCl 5 mg 04/24/25 15:14 04/25/25 04:00 Oxycodone Hcl (*Crx) 5 Mg Tab Ir PO 5 mg Q4H PRN Administration Pain Rated 4-6 Oxycodone HCl 10 mg 04/24/25 15:14 Oxycodone Hcl (*Crx) 5 Mg Tab Ir PO Q6H PRN Pain Rated 7-10 Simethicone 80 mg 04/24/25 17:00 04/24/25 17:28 Simethicone 80 Mg Tab.Chew PO 80 mg TIDWM JEREL Administration Labs 04/25/25 04:04 Labs: Laboratory Results - last 24 hr 04/25/25 04:04 WBC 11.3 H RBC 3.54 L Hgb 11.4 L Hct 34.5 L MCV 97.5 MCH 32.2 MCHC 33.0 RDW 12.9 Plt Count 248 MPV 8.8 Immature Gran % (Auto) 0.6 H Neut % (Auto) 74.6 H Lymph % (Auto) 12.5 L [place] % (Auto) 11.9 H Eos % (Auto) 0.1 Baso % (Auto) 0.3 Lymph # (Auto) 1.41 [place] # (Auto) 1.3 H Eos # (Auto) 0.0 Baso # (Auto) 0.0 Abs Immat Gran (auto) 0.07 H Absolute Neuts (auto) 8.4 H Absolute Nucleated RBC 0.000 Nucleated RBC % 0.0
[2025-04-25] MEDS: SIMETHICONE 80 MG TAB.CHEW PO (07:59)
[2025-04-25] MEDS: DOCUSATE SODIUM 100 MG CAPSULE PO (07:59)
[2025-04-25] MEDS: ENOXAPARIN 40 MG/0.4 ML SYRINGE SUB-Q (08:00)
[2025-04-25 08:09] VITALS: BP 110/58; PULSE 73; RESP 16; TEMP 36.6; O2SAT 96
== END 2025-04-25 10:15 | disposition home or self-care (01) ==
LOC: ANHSURGERY 11:16 → ANHOB2 15:19
PROVIDERS: PCP Internal Medicine; Visit Provider Obstetrics & Gynecology
PROC: (CPT 58552; principal; 2025-04-24 13:30)
DX: R87.613 High grade squamous intraepithelial lesion on cytologic smear of cervix (HGSIL) (principal); N80.03 Adenomyosis of the uterus; K21.9 Gastro-esophageal reflux disease without esophagitis; E66.9 Obesity, unspecified; Z68.38 Body mass index [BMI] 38.0-38.9, adult; Z79.891 Long term (current) use of opiate analgesic; Z79.85 Long-term (current) use of injectable non-insulin antidiabetic drugs; Z98.890 Other specified postprocedural states; Z98.1 Arthrodesis status; Z87.891 Personal history of nicotine dependence
CPT/HCPCS: 58552; S2900; 36415; 85025; 88307; 99199; J0690; A9270; J1100; J1171; J1650; J1885; J2003; J2250; J2405; J2704; J3010; J7030; J7120; J7121

== ENCOUNTER 2025-05-21 12:08 | Emergency (ER) | payer BC, SELFPAY ==
[2025-05-21 12:12] VITALS: BP 146/81; PULSE 80; RESP 17; TEMP 36.7; O2SAT 100
[2025-05-21 12:46] LABS: EDSTREPNEGPOS1 Negative (Negative)
--- NOTE | 2025-05-21 12:53 | ED.URI ---
HPI - URI/Sore Throat General Chief Complaint: Upper Respiratory Infection Stated Complaint: sore throat Time Seen by Provider: 05/21/25 12:45 Source: patient and RN notes reviewed Mode of arrival: ambulatory Limitations: no limitations History of Present Illness HPI Narrative: 54-year-old female presents to the [facility] complaining of cough, sore throat since yesterday. Patient reports tactile fevers as well. Patient denies any body aches, chills, nausea vomiting, diarrhea, chest pain, difficulty breathing, wheezing, any other upper respiratory symptoms, or any other symptoms. Patient took NyQuil with some relief. Patient reports recently having a hysterectomy and takes immunosuppressants for history of psoriasis. Related Data Home Medications ?Medication ?Instructions ?Recorded ?Confirmed ?Last Taken ?Type ergocalciferol (vitamin D2) 1,250 1,250 mcg PO WEEKLY 03/23/21 04/24/25 04/20/25 History mcg (50,000 unit) capsule risankizumab-rzaa 150 mg/mL 150 mg subcut ONCE 09/05/23 04/24/25 04/16/25 History subcutaneous pen injector (Skyrizi) apremilast 30 mg tablet (Otezla) 30 mg PO BID 03/11/25 04/24/25 04/16/25 History Held on 04/20/25. Instructions: holding for surgery for over one week per Dermatology ascorbic acid (vitamin C) 500 mg 500 mg PO DAILY 03/11/25 04/24/25 04/20/25 History tablet (C-500) estradiol-norethindrone acet 1 1 tablet PO DAILY 03/11/25 04/23/25 03/19/25 History mg-0.5 mg tablet (Mimvey) sour lee extract 1,000 mg 1,000 mg PO DAILY 03/11/25 04/24/25 04/20/25 History capsule (Tart Lee Extract) turmeric 400 mg capsule 1,000 mg PO DAILY 03/11/25 04/24/25 04/20/25 History multivitamin with minerals-folic tablet PO DAILY 04/20/25 04/23/25 04/20/25 History acid 200 mcg chewable tablet red beet 250 mg-sour lee 1 tablet PO DAILY 04/20/25 04/24/25 04/20/25 History extract 0.5 mg chewable tablet estradiol-norethindrone acet 1 1 tablet PO DAILY 04/23/25 04/23/25 Unknown History mg-0.5 mg tablet (Alicja) Allergies Allergy/AdvReac Type Severity Reaction Status Date / Time Sulfa (Sulfonamide Allergy Mild unknown-as Verified 05/21/25 12:23 Antibiotics) a child Review of Systems Review of Systems: CONSTITUTIONAL: Positive for tactile fevers. Negative for chills, body aches, or sweats. EYES: Denies visual changes, redness, or discharge. ENT: Positive sore throat. Negative for rhinorrhea, congestion, or otalgia. CARDIOVASCULAR: Denies chest pain, palpitations, or edema. RESPIRATORY: Positive for cough. Negative for dyspnea or wheezing. GASTROINTESTINAL: Denies abdominal pain, nausea, vomiting, or diarrhea. GENITOURINARY: Denies dysuria or hematuria. SKIN: Denies rash or itching. MUSCULOSKELETAL: Denies back pain, joint pain, or myalgia. NEUROLOGIC: Denies headache, numbness, or weakness. PSYCHIATRIC: Denies anxiety or depression. All other systems reviewed are negative, except as documented in HPI. [facility] Past Medical History Medical History Fibroid GERD (gastroesophageal reflux disease) Cervical vertebral fusion Torn meniscus Colon cancer screening Obesity (BMI 30-39.9) Surgical History Surgical History H/O arthroscopic knee surgery History of bunionectomy Family History Family History Mother Family history of liver disease, Onset Age: 46 Patient's mother is Father Family history of diabetes mellitus in first degree relative, Onset Age: 64 Patient's father is Sibling , pulmonary edema No problems noted. Sibling No problems noted. Social History Social History Smoking packs per day: 1 Smoking cigarettes per day: 20.0 Years smoked: 15 Smoking pack-years: 15.00 Tobacco type: cigarettes Second hand tobacco smoke exposure: No Smoking end date: 03/11/05 Alcohol intake: current Drinks per week: 10 Substance use: never Substance use type: does not use Do You Feel Safe in your Home?: Yes Lack of Transportation: No Lack of Food: Never True Current Housing: I Have Housing Concerned About Future Housing: No Difficulty Paying Gas/Electric Bills: No Difficulty Paying for Meds: YES Currently Unemployed: No Education: High School Diploma/GED Difficulty w/ Childcare or Family Care: No Living arrangements: other Additional living arrangements comments: I have a partner Occupation/Education: occupation 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 There is no relevant family history pertinent to the patient complaint. Exam Narrative: GENERAL: This is a well-nourished, well-developed adult, in no apparent distress. They are non ill-appearing, nontoxic appearing. HEAD: normocephalic, atraumatic. EYES: Sclera clear/white. Vision is grossly intact. Conjunctiva normal bilaterally. Extraocular movements intact. EARS: External ears normal, auditory canals clear and without drainage, TMs without erythema or perforation. Hearing grossly intact. NOSE: External nose normal with no obvious nasal discharge, nasal turbinates by redness or swelling, no rhinorrhea. THROAT: Mucous membranes moist, posterior pharynx erythema without swelling, no exudate. Uvula is midline. Postnasal drip present. NECK: Neck supple, non-tender without lymphadenopathy, masses or thyromegaly. CARDIOVASCULAR: Regular rate and rhythm without murmurs, gallops, or rubs. RESPIRATORY: Clear to auscultation. Breath sounds equal bilaterally. No wheezes, rales, or rhonchi. SKIN: warm, Dry, intact with no suspicious lesions or rash, good texture and turgor. NEURO: awake, alert, and oriented to person, place and time. There were no obvious focal neurologic abnormalities. EXTREMITIES: No joint tenderness, effusion, or edema noted. BACK: Nontender without deformity. Course Course Emergency Course: Portions of this record may have been created with voice recognition software Level of Care: Express Care Visit Vital Signs Vital signs: Vital Signs Temperature 98.0 F 05/21/25 12:12 Pulse Rate 80 05/21/25 12:12 Respiratory Rate 17 05/21/25 12:12 Blood Pressure 146/81 H 05/21/25 12:12 Pulse Oximetry 100 05/21/25 12:12 Oxygen Delivery Room Air 05/21/25 12:12 Temperature 98.0 F 05/21/25 12:12 Pulse Rate 80 05/21/25 12:12 Respiratory Rate 17 05/21/25 12:12 Blood Pressure 146/81 H 05/21/25 12:12 Pulse Oximetry 100 05/21/25 12:12 Oxygen Delivery Room Air 05/21/25 12:12 MDM - URI/Sore Throat MDM Narrative Medical decision making narrative: Rapid strep negative. Throat culture is pending. Symptoms likely viral in etiology. Discussed supportive therapy. Prescribe benzonatate tablets as needed for cough. Discussed physical exam findings. Advised supportive measures and signs/symptoms to go to the ER. Pt is appropriate for outpt treatment and f/u. Differential Diagnosis Differential diagnosis: Likely upper respiratory infection, otitis media, sinusitis, viral infection and pharyngitis Lab Data Attestation: I reviewed the patient's lab results. Labs: Lab Results 05/21/25 Range/Units 12:43 POC Grp A Strep Screen Negative (Negative) Discharge Plan Discharge Clinical Impression: Upper respiratory infection Qualifiers: URI type: unspecified viral URI Qualified Code(s): J06.9 - Acute upper respiratory infection, unspecified Patient Disposition: Home Condition: Stable Instructions: Antibiotic Form, Upper Respiratory Infection (ED) Additional Instructions: Your rapid strep swab was negative today at [facility]. You will be notified in a few days if the culture comes back positive for strep, and appropriate antibiotics will be called in for you at that time. Your symptoms are likely due to a viral illness, which is not treated with antibiotics. Viral symptoms can be present for up to 10-14 days. Take Tylenol or ibuprofen as needed for fever or pain. Follow instructions on the bottle. If you take DayQuil and NyQuil do not take additional Tylenol as it already contains Tylenol in it. Take benzonatate tablets as needed for cough. Rest and stay hydrated. Follow up with your PCP in 5 - 7 days if symptoms are not improving. Go to the ER immediately if you developed chest pains, nausea, vomiting, difficulty breathing or swallowing, worsening fevers, or any serious concerns Patient Language: Vietnamese Prescriptions: New benzonatate 200 mg capsule 200 mg PO TID PRN (Reason: cough) Qty: 20 0RF No Action estradiol-norethindrone acet [Mimvey] 1-0.5 mg tablet 1 tablet PO DAILY Wegovy 0.25 mg/0.5 mL pen injector 0.25 mg subcut WEEKLY Qty: 2 0RF Rx Instructions: administer weeks 1 through 4 of therapy; call for next dose Skyrizi 150 mg/mL pen injector 150 mg subcut ONCE Patient Comments: Last dose 03/23/25 takes every 84days and Derm is aware of surgery Rx Instructions: [id number]. ergocalciferol (vitamin D2) 1,250 mcg (50,000 unit) capsule 1,250 mcg PO WEEKLY Rx Instructions: takes on Tuesdays Otezla 30 mg tablet 30 mg PO BID Tart Lee Extract 1,000 mg capsule 1,000 mg PO DAILY ascorbic acid (vitamin C) [C-500] 500 mg tablet 500 mg PO DAILY turmeric 400 mg capsule 1,000 mg PO DAILY estradiol-norethindrone acet [Mimvey] 1-0.5 mg tablet 1 tablet PO DAILY red beet-sour lee extract 250-0.5 mg tablet,chewable 1 tablet PO DAILY Patient Comments: 600mg soft chew daily. multivit with min-folic acid 200 mcg tablet,chewable PO DAILY Patient Comments: [employer] pkg hydrocodone-acetaminophen 5-325 mg tablet 1 tablet PO Q4H PRN (Reason: pain) Qty: 20 0RF Follow-up/Referrals: Napoleon Gutierrez DO [Primary Care Provider, Internal Medicine] Time of Disposition: 12:53
== END 2025-05-21 12:58 | disposition home or self-care (01) ==
PROVIDERS: PCP Internal Medicine
DX: J06.9 Acute upper respiratory infection, unspecified (principal); K21.9 Gastro-esophageal reflux disease without esophagitis; E66.9 Obesity, unspecified; Z68.38 Body mass index [BMI] 38.0-38.9, adult; Z87.891 Personal history of nicotine dependence
CPT/HCPCS: 87081; 87880; 99213; G0463